=== PATIENT | male | born 1935 | race Caucasian/White ===

== ENCOUNTER → 2019-03-01 08:38 | Outpatient (BNVA) | payer MEDICARE, MEDICAID, SELFPAY | PROVIDERS: Family Provider Nurse Practitioner; PCP Nurse Practitioner; Visit Provider Nurse Practitioner | DX: E11.9 Type 2 diabetes mellitus without complications (principal); I48.91 Unspecified atrial fibrillation | CPT/HCPCS: 83036; 85610 ==

== ENCOUNTER → 2019-04-03 11:40 | Outpatient (BNVA) | payer MEDICARE, MEDICAID, SELFPAY | PROVIDERS: Family Provider Nurse Practitioner; PCP Nurse Practitioner; Visit Provider Nurse Practitioner | DX: I48.91 Unspecified atrial fibrillation (principal) | CPT/HCPCS: 85610 ==

== ENCOUNTER → 2019-04-27 14:11 | Outpatient (BNVA) | payer MEDICARE, MEDICAID, SELFPAY | PROVIDERS: Family Provider Nurse Practitioner; PCP Nurse Practitioner; Visit Provider Nurse Practitioner | DX: D69.9 Hemorrhagic condition, unspecified (principal); G20 Parkinson's disease; I10 Essential (primary) hypertension; K21.0 Gastro-esophageal reflux disease with esophagitis; E61.1 Iron deficiency; E11.65 Type 2 diabetes mellitus with hyperglycemia; E78.2 Mixed hyperlipidemia | CPT/HCPCS: 85610 ==

== ENCOUNTER → 2019-05-01 08:09 | Outpatient (BNVA) | payer MEDICARE, MEDICAID, SELFPAY | PROVIDERS: Family Provider Nurse Practitioner; PCP Nurse Practitioner; Visit Provider Nurse Practitioner | DX: E11.65 Type 2 diabetes mellitus with hyperglycemia (principal); D51.8 Other vitamin B12 deficiency anemias; E78.2 Mixed hyperlipidemia | CPT/HCPCS: 80053; 80061; 82607; 83036 ==

== ENCOUNTER → 2019-05-29 08:34 | Outpatient (BNVA) | payer MEDICARE, MEDICAID, SELFPAY | PROVIDERS: Family Provider Nurse Practitioner; PCP Nurse Practitioner; Visit Provider Nurse Practitioner | DX: D69.9 Hemorrhagic condition, unspecified (principal); I48.91 Unspecified atrial fibrillation | CPT/HCPCS: 85610 ==

== ENCOUNTER → 2019-06-19 09:10 | Outpatient (BNVA) | payer MEDICARE, MEDICAID, SELFPAY | PROVIDERS: Family Provider Nurse Practitioner; PCP Nurse Practitioner; Visit Provider Nurse Practitioner | DX: D69.9 Hemorrhagic condition, unspecified (principal) | CPT/HCPCS: 85610 ==

== ENCOUNTER → 2019-07-17 08:26 | Outpatient (BNVA) | payer MEDICARE, MEDICAID, SELFPAY | PROVIDERS: Family Provider Nurse Practitioner; PCP Nurse Practitioner; Visit Provider Nurse Practitioner | DX: I48.91 Unspecified atrial fibrillation (principal); D69.9 Hemorrhagic condition, unspecified | CPT/HCPCS: 85610 ==

== ENCOUNTER → 2019-08-13 13:20 | Outpatient (BNVA) | payer MEDICARE, MEDICAID, SELFPAY | PROVIDERS: Family Provider Nurse Practitioner; PCP Nurse Practitioner; Visit Provider Nurse Practitioner | DX: D69.9 Hemorrhagic condition, unspecified (principal); I48.91 Unspecified atrial fibrillation; E11.65 Type 2 diabetes mellitus with hyperglycemia; E78.2 Mixed hyperlipidemia; E53.8 Deficiency of other specified B group vitamins | CPT/HCPCS: 80048; 80061; 83036; 85610 ==

== ENCOUNTER → 2019-09-06 13:20 | Outpatient (BNVA) | payer MEDICARE, MEDICAID, SELFPAY | PROVIDERS: Family Provider Nurse Practitioner; PCP Nurse Practitioner; Visit Provider Nurse Practitioner | DX: I48.91 Unspecified atrial fibrillation (principal); D69.9 Hemorrhagic condition, unspecified; D51.8 Other vitamin B12 deficiency anemias | CPT/HCPCS: 85610 ==

== ENCOUNTER → 2019-10-18 13:24 | Outpatient (BNVA) | payer MEDICARE, MEDICAID, SELFPAY | PROVIDERS: Family Provider Nurse Practitioner; PCP Nurse Practitioner; Visit Provider Nurse Practitioner | DX: D69.9 Hemorrhagic condition, unspecified (principal); D51.8 Other vitamin B12 deficiency anemias; I10 Essential (primary) hypertension; G20 Parkinson's disease; K21.0 Gastro-esophageal reflux disease with esophagitis; E61.1 Iron deficiency; E11.65 Type 2 diabetes mellitus with hyperglycemia; E78.2 Mixed hyperlipidemia; I48.91 Unspecified atrial fibrillation | CPT/HCPCS: 85610 ==

== ENCOUNTER → 2019-11-12 11:01 | Outpatient (BNVA) | payer MEDICARE, MEDICAID, SELFPAY | PROVIDERS: Family Provider Nurse Practitioner; PCP Nurse Practitioner; Visit Provider Nurse Practitioner | DX: I48.91 Unspecified atrial fibrillation (principal); E11.65 Type 2 diabetes mellitus with hyperglycemia | CPT/HCPCS: 80053; 80061; 82043; 83036; 85025; 85610 ==

== ENCOUNTER → 2019-12-13 09:38 | Outpatient (BNVA) | payer MEDICARE, MEDICAID, SELFPAY | PROVIDERS: Family Provider Nurse Practitioner; PCP Nurse Practitioner; Visit Provider Nurse Practitioner | DX: I48.0 Paroxysmal atrial fibrillation (principal); D69.9 Hemorrhagic condition, unspecified | CPT/HCPCS: 85610 ==

== ENCOUNTER → 2019-12-18 09:31 | Outpatient (BNVA) | payer MEDICARE, MEDICAID, SELFPAY | PROVIDERS: Family Provider Nurse Practitioner; PCP Nurse Practitioner; Visit Provider Nurse Practitioner | DX: D51.8 Other vitamin B12 deficiency anemias (principal); E61.1 Iron deficiency; I10 Essential (primary) hypertension; E78.2 Mixed hyperlipidemia; I48.0 Paroxysmal atrial fibrillation; R35.0 Frequency of micturition | CPT/HCPCS: 80061; 81003; 85025; 85610 ==

== ENCOUNTER → 2019-12-21 09:37 | Outpatient (BNVA) | payer MEDICARE, MEDICAID, SELFPAY | PROVIDERS: Family Provider Nurse Practitioner; PCP Nurse Practitioner; Visit Provider Nurse Practitioner | DX: R39.11 Hesitancy of micturition (principal); N41.9 Inflammatory disease of prostate, unspecified; D69.9 Hemorrhagic condition, unspecified; I48.0 Paroxysmal atrial fibrillation | CPT/HCPCS: 80053; 81000; 85025; 85610 ==

== ENCOUNTER → 2019-12-31 09:12 | Outpatient (BNVA) | payer MEDICARE, MEDICAID, SELFPAY | PROVIDERS: Family Provider Nurse Practitioner; PCP Nurse Practitioner; Visit Provider Nurse Practitioner | DX: D69.9 Hemorrhagic condition, unspecified (principal) | CPT/HCPCS: 85610 ==

== ENCOUNTER → 2020-01-22 12:38 | Outpatient (BNVA) | payer MEDICARE, MEDICAID, SELFPAY | PROVIDERS: Family Provider Nurse Practitioner; PCP Nurse Practitioner; Visit Provider Nurse Practitioner | DX: I10 Essential (primary) hypertension (principal); E11.65 Type 2 diabetes mellitus with hyperglycemia; I48.0 Paroxysmal atrial fibrillation; E61.1 Iron deficiency; E78.2 Mixed hyperlipidemia | CPT/HCPCS: 80053; 83036; 85025; 85610 ==

== ENCOUNTER → 2020-02-18 10:37 | Outpatient (BNVA) | payer MEDICARE, MEDICAID, SELFPAY | PROVIDERS: Family Provider Nurse Practitioner; PCP Nurse Practitioner; Visit Provider Nurse Practitioner | DX: I48.0 Paroxysmal atrial fibrillation (principal) | CPT/HCPCS: 85610 ==

== ENCOUNTER → 2020-02-25 10:49 | Outpatient (BNVA) | payer MEDICARE, MEDICAID, SELFPAY | PROVIDERS: Family Provider Nurse Practitioner; PCP Nurse Practitioner; Visit Provider Nurse Practitioner | DX: I48.0 Paroxysmal atrial fibrillation (principal) | CPT/HCPCS: 85610 ==

== ENCOUNTER → 2020-03-03 09:58 | Outpatient (BNVA) | payer MEDICARE, MEDICAID, SELFPAY | PROVIDERS: Family Provider Nurse Practitioner; PCP Nurse Practitioner; Visit Provider Nurse Practitioner | DX: I48.0 Paroxysmal atrial fibrillation (principal) | CPT/HCPCS: 85610 ==

== ENCOUNTER → 2020-03-17 13:35 | Outpatient (BNVA) | payer MEDICARE, MEDICAID, SELFPAY | PROVIDERS: Family Provider Nurse Practitioner; PCP Nurse Practitioner; Visit Provider Nurse Practitioner | DX: I48.0 Paroxysmal atrial fibrillation (principal) | CPT/HCPCS: 85610 ==

== ENCOUNTER → 2020-04-09 12:47 | Outpatient (BNVA) | payer MEDICARE, MEDICAID, SELFPAY | PROVIDERS: Family Provider Nurse Practitioner; PCP Nurse Practitioner; Visit Provider Nurse Practitioner | DX: D69.9 Hemorrhagic condition, unspecified (principal); I48.0 Paroxysmal atrial fibrillation | CPT/HCPCS: 85610 ==

== ENCOUNTER → 2020-04-30 11:15 | Outpatient (BNVA) | payer MEDICARE, MEDICAID, SELFPAY | PROVIDERS: Family Provider Nurse Practitioner; PCP Nurse Practitioner; Visit Provider Nurse Practitioner | DX: D69.9 Hemorrhagic condition, unspecified (principal); I48.0 Paroxysmal atrial fibrillation | CPT/HCPCS: 85610 ==

== ENCOUNTER → 2020-05-13 09:54 | Outpatient (BNVA) | payer MEDICARE, MEDICAID, SELFPAY | PROVIDERS: Family Provider Nurse Practitioner; PCP Nurse Practitioner; Visit Provider Nurse Practitioner | DX: D69.9 Hemorrhagic condition, unspecified (principal); E11.65 Type 2 diabetes mellitus with hyperglycemia | CPT/HCPCS: 80053; 83036; 85610 ==

== ENCOUNTER → 2020-05-28 08:55 | Outpatient (BNVA) | payer MEDICARE, MEDICAID, SELFPAY | PROVIDERS: Family Provider Nurse Practitioner; PCP Nurse Practitioner; Visit Provider Nurse Practitioner | DX: I48.0 Paroxysmal atrial fibrillation (principal); L03.90 Cellulitis, unspecified; L72.3 Sebaceous cyst | CPT/HCPCS: 85025; 85610 ==

== ENCOUNTER → 2020-06-09 09:04 | Outpatient (BNVA) | payer MEDICARE, MEDICAID, SELFPAY | PROVIDERS: Family Provider Nurse Practitioner; PCP Nurse Practitioner; Visit Provider Nurse Practitioner | DX: D69.9 Hemorrhagic condition, unspecified (principal); I48.0 Paroxysmal atrial fibrillation | CPT/HCPCS: 85610 ==

== ENCOUNTER → 2020-06-16 11:34 | Outpatient (BNVA) | payer MEDICARE, MEDICAID, SELFPAY | PROVIDERS: Family Provider Nurse Practitioner; PCP Nurse Practitioner; Visit Provider Nurse Practitioner | DX: I48.0 Paroxysmal atrial fibrillation (principal) | CPT/HCPCS: 85610 ==

== ENCOUNTER → 2020-07-09 09:26 | Outpatient (BNVA) | payer MEDICARE, MEDICAID, SELFPAY | PROVIDERS: Family Provider Nurse Practitioner; PCP Nurse Practitioner; Visit Provider Nurse Practitioner | DX: I48.0 Paroxysmal atrial fibrillation (principal) | CPT/HCPCS: 85610 ==

== ENCOUNTER → 2020-08-06 11:16 | Outpatient (BNVA) | payer MEDICARE, MEDICAID, SELFPAY | PROVIDERS: Family Provider Nurse Practitioner; PCP Nurse Practitioner; Visit Provider Nurse Practitioner | DX: I48.0 Paroxysmal atrial fibrillation (principal) | CPT/HCPCS: 85610 ==

== ENCOUNTER → 2020-08-25 11:43 | Outpatient (BNVA) | payer MEDICARE, MEDICAID, SELFPAY | PROVIDERS: Family Provider Nurse Practitioner; PCP Nurse Practitioner; Visit Provider Nurse Practitioner | DX: E11.65 Type 2 diabetes mellitus with hyperglycemia (principal); I48.0 Paroxysmal atrial fibrillation; I10 Essential (primary) hypertension; G20 Parkinson's disease; D51.8 Other vitamin B12 deficiency anemias; K21.9 Gastro-esophageal reflux disease without esophagitis; E61.1 Iron deficiency; E78.2 Mixed hyperlipidemia; R39.11 Hesitancy of micturition; Z79.01 Long term (current) use of anticoagulants | CPT/HCPCS: 80053; 80061; 83036; 85610 ==

== ENCOUNTER → 2020-09-08 09:34 | Outpatient (BNVA) | payer MEDICARE, MEDICAID, SELFPAY | PROVIDERS: Family Provider Nurse Practitioner; PCP Nurse Practitioner; Visit Provider Nurse Practitioner | DX: I48.0 Paroxysmal atrial fibrillation (principal); Z79.01 Long term (current) use of anticoagulants | CPT/HCPCS: 85610 ==

== ENCOUNTER → 2020-09-25 09:38 | Outpatient (BNVA) | payer MEDICARE, MEDICAID, SELFPAY | PROVIDERS: Family Provider Nurse Practitioner; PCP Nurse Practitioner; Visit Provider Nurse Practitioner | DX: I48.0 Paroxysmal atrial fibrillation (principal); Z79.01 Long term (current) use of anticoagulants | CPT/HCPCS: 85610 ==

== ENCOUNTER → 2020-09-29 09:06 | Outpatient (BNVA) | payer MEDICARE, MEDICAID, SELFPAY | PROVIDERS: Family Provider Nurse Practitioner; PCP Nurse Practitioner; Visit Provider Nurse Practitioner | DX: I48.0 Paroxysmal atrial fibrillation (principal) | CPT/HCPCS: 85610 ==

== ENCOUNTER → 2020-10-07 10:09 | Outpatient (BNVA) | payer MEDICARE, MEDICAID, SELFPAY | PROVIDERS: Family Provider Nurse Practitioner; PCP Nurse Practitioner; Visit Provider Nurse Practitioner | DX: I48.0 Paroxysmal atrial fibrillation (principal); Z79.01 Long term (current) use of anticoagulants | CPT/HCPCS: 85610 ==

== ENCOUNTER → 2020-11-10 10:45 | Outpatient (BNVA) | payer MEDICARE, MEDICAID, SELFPAY | PROVIDERS: Family Provider Nurse Practitioner; PCP Nurse Practitioner; Visit Provider Nurse Practitioner | DX: I48.0 Paroxysmal atrial fibrillation (principal); E11.65 Type 2 diabetes mellitus with hyperglycemia; E61.1 Iron deficiency; I10 Essential (primary) hypertension; G20 Parkinson's disease; D51.8 Other vitamin B12 deficiency anemias; K21.9 Gastro-esophageal reflux disease without esophagitis; E78.2 Mixed hyperlipidemia; R39.11 Hesitancy of micturition | CPT/HCPCS: 80053; 80061; 82607; 83036; 83540; 85025; 85610 ==

== ENCOUNTER 2020-11-17 21:55 | Inpatient (IN) | payer MEDICARE, MEDICAID, SELFPAY ==
[2020-11-17 22:46] VITALS: BP 134/77; PULSE 84; RESP 16; TEMP 36.6; O2SAT 99; BMI 30.9
--- NOTE | 2020-11-17 22:58 | PC.NURSE ---
FSBS 164
[2020-11-17 23:08] LABS: Glucose Point of Care 164 mg/dL (70-110)
--- NOTE | 2020-11-17 23:45 | ECG_ITS ---
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 Measurements Intervals [place] Rate: 80 P: DE: QRS: -16 QRSD: 86 T: 29 QT: 351 QTc: 407 Interpretive Statements ATRIAL FIBRILLATION ABNORMAL RHYTHM ECG No previous ECG available for comparison Electronically Signed On 11-18-2020 17:28:53 CDT by Trice Ballard M.D. [id number]
--- NOTE | 2020-11-17 23:57 | CTR_ITS ---
PROCEDURE INFORMATION: Exam: CT Abdomen And Pelvis With Contrast Exam date and time: 11/17/2020 11:57 PM Age: 85 years old Clinical indication: Abdominal pain; Prior surgery; Surgery type: Mitral valve; Patient HX: Generalized abd pain. Ureter and bladder opacification due to infiltration of iv during initial injection. ; Additional info: Per pcp TECHNIQUE: Imaging protocol: Computed tomography of the abdomen and pelvis with contrast. Radiation optimization: All CT scans at this facility use at least one of these dose optimization techniques: automated exposure control; mA and/or kV adjustment per patient size (includes targeted exams where dose is matched to clinical indication); or iterative reconstruction. Contrast material: OMNI 300; Contrast volume: 75 ml; Contrast route: INTRAVENOUS (IV); COMPARISON: No relevant prior studies available. RADIATION DOSE METRICS: Total DLP (mGy-cm): 1579.69 FINDINGS: Heart: Mitral annulus calcifications. Liver: Lobulated liver contour with areas of scarring and fibrosis. Gallbladder and bile ducts: Normal. No calcified stones. No ductal dilation. Pancreas: Pancreas fatty atrophy. Spleen: Normal. No splenomegaly. Adrenal glands: Normal. No mass. Kidneys and ureters: Normal. No hydronephrosis. Stomach and bowel: Moderate colonic diverticulosis. Appendix: No evidence of appendicitis. Intraperitoneal space: Unremarkable. No free air. No significant fluid collection. Vasculature: Moderate coronary artery disease. Lymph nodes: Unremarkable. No enlarged lymph nodes. Urinary bladder: Unremarkable as visualized. Reproductive: Mild prostate gland enlargement. Bones/joints: Unremarkable. No acute fracture. Soft tissues: Unremarkable. CT/CT abdomen pelvis w con* [id number] IMPRESSION: 1. Moderate colonic diverticulosis. 2. Lobulated liver contour with areas of scarring and fibrosis. Radiation Dose CTDIVOL = (mGy): DLP = 1579.69 (mGy-cm)
[2020-11-18] VITALS (11 sets, daily range): BP systolic 109–160; BP diastolic 68–90; PULSE 61–92; RESP 16–18; TEMP 36.4–36.9; O2SAT 94–98
--- NOTE | 2020-11-18 00:03 | CTR_ITS ---
PROCEDURE INFORMATION: Exam: CT Angiography Head With Contrast, Arteriography Exam date and time: 11/18/2020 12:03 AM Age: 85 years old Clinical indication: Dizziness and giddiness and weakness; Patient HX: Onset of severe weakness and dizziness last night. ; Additional info: Rule out stenosis TECHNIQUE: Imaging protocol: Computed tomography angiography of the head with contrast. Exam focused on the arteries. 3D rendering (Not supervised by radiologist): MIP and/or 3D reconstructed images were created by the technologist. Radiation optimization: All CT scans at this facility use at least one of these dose optimization techniques: automated exposure control; mA and/or kV adjustment per patient size (includes targeted exams where dose is matched to clinical indication); or iterative reconstruction. Contrast material: OMNI 350; Contrast volume: 95 ml; Contrast route: INTRAVENOUS (IV); COMPARISON: CT head wo con* [id number] 11/18/2020 12:23 AM RADIATION DOSE METRICS: Total DLP (mGy-cm): 2510.02 FINDINGS: ANTERIOR CIRCULATION: Right internal carotid artery: Unremarkable. Intracranial segment is patent with no significant stenosis. No aneurysm. Right middle cerebral artery: Unremarkable. No occlusion or significant stenosis. No aneurysm. Right anterior cerebral artery: Unremarkable. No occlusion or significant stenosis. No aneurysm. Left internal carotid artery: Unremarkable. Intracranial segment is patent with no significant stenosis. No aneurysm. Left middle cerebral artery: Unremarkable. No occlusion or significant stenosis. No aneurysm. Left anterior cerebral artery: Unremarkable. No occlusion or significant stenosis. No aneurysm. POSTERIOR CIRCULATION: Right vertebral artery: Unremarkable. No occlusion or significant stenosis. No aneurysm. Left vertebral artery: Unremarkable. No occlusion or significant stenosis. No aneurysm. Basilar artery: Unremarkable. No occlusion or significant stenosis. No aneurysm. Right posterior cerebral artery: Unremarkable. No occlusion or significant stenosis. No aneurysm. Left posterior cerebral artery: Unremarkable. No occlusion or significant stenosis. No aneurysm. Brain: There is moderate cerebral atrophy. There is moderate diffuse heterogeneity of the white matter attenuation, consistent with chronic white matter ischemic changes. Cerebral ventricles: No ventriculomegaly. Bones/joints: Unremarkable. No acute fracture. Soft tissues: Unremarkable. IMPRESSION: Unremarkable CT angiogram of the head. No intracranial large arterial vessel occlusion. PROCEDURE INFORMATION: Exam: CT Angiography Neck With Contrast Exam date and time: 11/18/2020 12:03 AM Age: 85 years old Clinical indication: Dizziness and giddiness and weakness; Patient HX: Onset of severe weakness and dizziness last night. ; Additional info: Rule out stenosis TECHNIQUE: Imaging protocol: Computed tomography angiography of the neck with contrast. 3D rendering (Not supervised by radiologist): MIP and/or 3D reconstructed images were created by the technologist. Radiation optimization: All CT scans at this facility use at least one of these dose optimization techniques: automated exposure control; mA and/or kV adjustment per patient size (includes targeted exams where dose is matched to clinical indication); or iterative reconstruction. Contrast material: OMNI 350; Contrast volume: 95 ml; Contrast route: INTRAVENOUS (IV); COMPARISON: CT head wo con* [id number] 11/18/2020 12:23 AM RADIATION DOSE METRICS: Total DLP (mGy-cm): 2510.02 FINDINGS: Right common carotid artery: Small calcified plaque volume in the distal right common carotid artery. Minimal stenosis less than 50%. Right internal carotid artery: Large bulky calcified plaque volume in the proximal right ICA. Mild severity stenosis less than 50%. Right external carotid artery: No occlusion or stenosis of the origin. Left common carotid artery: Scattered small calcified plaques in the left common carotid artery. Minimal stenosis less than 50%. Left internal carotid artery: Bulky calcified plaque in the proximal left ICA. Mild severity stenosis less than 50%. Left external carotid artery: Calcified plaque at the origin of the left external carotid artery. Mild stenosis less than 50%. Right vertebral artery: No stenosis. No dissection or occlusion. Left vertebral artery: No stenosis. No dissection or occlusion. Soft tissues: Normal. No significant soft tissue swelling. Bones/joints: The cervical spine demonstrates moderate degenerative changes at multiple levels. Lungs: Moderate severity emphysema. Heart: Previous CABG. CT/CT angio headneck* [id number] IMPRESSION: Less than 50% stenosis in the carotid arteries. REFERENCES: NASCET CRITERIA. The degree of internal carotid artery stenosis is based on NASCET criteria. Normal is no stenosis. Mild is less than 50% stenosis. Moderate is 50-69% stenosis. Severe is 70% to 99% stenosis. Total occlusion is no detectable patent lumen. Radiation Dose CTDIVOL = (mGy): DLP = 2510.02~2510.02 (mGy-cm)
--- NOTE | 2020-11-18 00:03 | CTR_ITS ---
PROCEDURE INFORMATION: Exam: CT Head Without Contrast Exam date and time: 11/18/2020 12:03 AM Age: 85 years old Clinical indication: Patient HX: Onset of severe weakness and dizziness last night. ; Additional info: Rule out lesions TECHNIQUE: Imaging protocol: Computed tomography of the head without contrast. Radiation optimization: All CT scans at this facility use at least one of these dose optimization techniques: automated exposure control; mA and/or kV adjustment per patient size (includes targeted exams where dose is matched to clinical indication); or iterative reconstruction. COMPARISON: No relevant prior studies available. RADIATION DOSE METRICS: Total DLP (mGy-cm): 881.22 FINDINGS: Brain: There is moderate cerebral atrophy. Negative for intracranial hemorrhage.There is moderate diffuse heterogeneity of the white matter attenuation, consistent with chronic white matter ischemic changes. No intracranial mass. No midline shift of brain. Reyes matter and white matter interfaces are preserved. Cerebral ventricles: No ventriculomegaly. Paranasal sinuses: Visualized sinuses are unremarkable. No fluid levels. Mastoid air cells: Visualized mastoid air cells are well aerated. Vasculature: Intracranial atherosclerosis. Bones/joints: Unremarkable. No acute fracture. Soft tissues: Unremarkable. CT/CT head wo con* [id number] IMPRESSION: Negative for acute intracranial abnormality. Radiation Dose CTDIVOL = (mGy): DLP = 881.22 (mGy-cm)
[2020-11-18 00:26] LABS: Basophils % 0.5 %; Eosinophils # 0.2 10^3/uL (0.0-0.8); Eosinophils % 2.6 %; Hematocrit 33.9 % (42.0-52.0); Hemoglobin 10.6 g/dL (11.7-16.6); Lymphocytes # 2.2 10^3/uL (0.8-4.8); Lymphocytes % 34.7 %; Mean Corpuscular HGB Conc 31.3 g/dL (30.0-36.0); Mean Corpuscular Hemoglobin 28.7 pg (28.0-34.0); Mean Corpuscular Volume 91.9 fl (80-94); Mean Platelet Volume 9.6 fL (7.4-10.4); Monocytes # 0.5 10^3/uL (0.2-0.9); Monocytes % 7.7 %; Neutrophils # 3.41 10^3/uL (1.8-7.7); Neutrophils % 54.3 %; Nucleated Red Blood Cells % 0 %; Platelet Count 285 10^3/cmm (130-400); Red Blood Count 3.69 10^6/uL (4.1-5.3); Red Cell Distribution Width 14.6 % (12.1-15.1); White Blood Count 6.3 10^3/uL (4.0-10.0)
[2020-11-18] MEDS: iohexol 300 mg/mL 100 mL Btl IV (00:26)
--- NOTE | 2020-11-18 00:26 | W.ED.GENADLT ---
HPI - General Adult General: Chief complaint: Weakness Stated complaint: real weak,dizzy Time Seen by Provider: 11/17/20 23:54 History of Present Illness: HPI narrative: HPI: [85]yo patient w/ hx of HTN, DM, mitral valve repair BIBA for concern for of acute episode of light-headedness which started at 7:30pm. Patient called his son and told his son that he was not feeling well. Endorses dyspnea with light-headedness. On arrival, the patient denies any chest pain, SOB, palpitations, focal neurological weakness in the arms or legs. Patient could not recall exactly what happened. No complaints of post-ictal confusion, bowel or bladder incontinence after the incident. Denies any chest pain, palpitation, abdominal pain or back pain prior to the episode of syncope. No recent exertional chest pain or shortness of breath. Denies vertigo or disequilibrium. The episode of syncope was not preceded by any prodromes including nausea, pallor, or diaphoresis. No symptoms of diarrhea, hematuria, dysuria, melena or hematochezia. No prior documented hx of anemia requiring blood transfusions, VTE, or aortic aneurysm. Of note, patient has an outpatient CT abbdominal due to for chronic abd pain Onset: 7:30pm Duration: 3 hrs Location: home Severity: moderate Review of Systems Narrative: Constitutional: No fever, no chills. HEENT: No vision changes CV: No chest pain, no palpitations PULM: No productive cough, +dyspnea. GI: No abdominal pain, no N/V/D. : No Dysuria MSKEL: No muscle pain SKIN: No new rashes, no lesions. NEURO: No headache, no focal weakness. 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 Atrial fibrillation Controlled type 2 diabetes mellitus with hyperglycemia, without long-term current use of insulin Dietary vitamin B12 deficiency anemia Essential (primary) hypertension Gastric reflux Iron deficiency Memory changes Mixed hyperlipidemia Parkinson's disease Urinary hesitancy Warfarin anticoagulation Surgical History (Updated 11/20/20 @ 00:01 by ) H/O mitral valve repair S/P mitral valve repair Family History Mother Dementia Daughter Diabetes Denies family history of CAD (coronary artery disease) Clotting disorder Chronic kidney disease (CKD) Suicide Anesthesia complication Bleeding disorder Lung disease Cancer Stroke Social History Second hand smoke exposure: No Smoking risk assessment/counseling performed?: No Alcohol intake: never Desire information about alcohol rehabilitation?: No Counseling given: No Desire information about substance/drug rehabilitation?: No Counseling given: No Adopted: No Caregiver/support person: No Lives independently: Yes Household members: none Housing: House Marital status: / Current occupational status: retired History of recent travel: No Current gender identity: Male Physical Exam Narrative: EXAM NARRATIVE: Head: Atraumatic Eyes: PERRL, conjunctiva without injection, eyes tracking ENT: Mucous membrane moist NECK: Supple without lymphadenopathy, no nuchal rigidity LUNGS: LCTAB CV: RRR ABDOMEN: Soft, nontender in all quadrants, no guarding or rebound tenderness, no CVA or flank tenderness bilaterally EXTREMITY: Normal ROM SKIN: No rash or erythema NEURO: Mental status: A/Ox3 CN II-XII tested and intact. Sensation intact to sharp/dull differentiation in all extremities. Motor: Normal tone and bulk. No abnormal movements appreciated. No pronator drift. Strength tested and 5/5 in bilateral wrist flexion/extension, elbow flexion/extension, shoulder abduction, straight leg raise, knee flexion/extension, ankle dorsiflexion/plantarflexion. Patient ambulates with a steady gait. Coordination: Finger to nose and heel to alvarez testing intact bilaterally. PSYCH: Cooperative mood and affect Course Vital Signs: Vital signs: Vital Signs Temperature 97.6 F 11/19/20 14:19 Pulse Rate 82 11/19/20 14:19 Respiratory Rate 16 11/19/20 14:19 Blood Pressure 126/67 11/19/20 14:19 Pulse Oximetry 97 11/19/20 14:19 MDM - General Adult MDM Narrative: Medical decision making narrative: [85]yo patient w/ hx of mitral valve repair, HTN, DM presenting to the ED with persistent light-headedness -chest pain, +SOB, -palpitations. Currently symptom free. HDS. Neurologically intact. Given history, exam and workup, presentation not consistent with seizures given short time course, no postictal state, no seizure activity. Low suspicion for acute neurologic catastrophes to include ICH given lack of trauma, risk factors for bleeding diathesis. Low suspicion for vascular catastrophes to include PE, thoracic aortic dissection, AAA rupture. Workup: CBC, BMP, Troponin, BNP, ECG, CXR for aspiration, CT brain/CTA head, CT abd+pelvis Intervention: IVF, PO challenge, and serial reassessment EKG: No e/o STEMI. No evidence of Brugada?s sign, delta wave, epsilon wave, significantly prolonged QTc, or malignant arrhythmia. [1:30am] On reassessment, patient continues to HDS. No acute complaints currently. No syncopal episode in the ER. No arrhythmia noted on the vehicle monitor technician. Patient has been able to ambulate in the ED without issues. No suspicion of neurogenic syncope at this time. However, given age, cardiovascular risk factors and multiple co-rmbities, the patient will need inpatient workup for cardiac syncope. Patient agrees with the plan for inpatient admission at this time. UA is positive for UTI, will treat with ceftriaxone. Disposition: Admit to medicine, telemetry bed for cardiac monitoring and cardiology review. Lab Data: Labs: Lab Results 11/17/20 11/18/20 11/18/20 22:57 00:15 00:15 WBC 6.3 10^3/uL 10^3/ uL (4.0-10.0) RBC 3.69 10^6/uL L 10 ^6/uL (4.1-5.3) Hgb 10.6 g/dL L g/dL (11.7-16.6) Hct 33.9 % L % (42.0-52.0) MCV 91.9 fl fl (80-94) MCH 28.7 pg pg (28.0-34.0) MCHC 31.3 g/dL g/dL (30.0-36.0) RDW 14.6 % % (12.1-15.1) Plt Count 285 10^3/cmm 10^3 /cmm (130-400) MPV 9.6 fL fL (7.4-10.4) Neut % (Auto) 54.3 % % Lymph % (Auto) 34.7 % % [place] % (Auto) 7.7 % % Eos % (Auto) 2.6 % % Baso % (Auto) 0.5 % % Neut # (Auto) 3.41 10^3/uL 10^3 /uL (1.8-7.7) Lymph # (Auto) 2.2 10^3/uL 10^3/ uL (0.8-4.8) [place] # (Auto) 0.5 10^3/uL 10^3/ uL (0.2-0.9) Eos # (Auto) 0.2 10^3/uL 10^3/ uL (0.0-0.8) Baso # (Auto) 0.0 10^3/uL 10^3/ uL (0.0-0.1) Nucleated RBC % (a uto) 0 % % Nucleated RBCs # 0.0 /100WBC /100W BC PT 24.80 SECONDS H S ECONDS (12.1-14.9) INR 2.19 H (0.8-1.2) APTT 29.3 SECONDS SECO NDS (23.9-36.7) Sodium Potassium Chloride Carbon Dioxide Anion Gap BUN Creatinine GFR Calculation Glucose POC Glucose 164 mg/dL H mg/dL (70-110) Estimat Average Gl ucose Hemoglobin A1c Calculated Osmolal ity Calcium Iron TIBC % Saturation Unsat Iron Binding Total Bilirubin AST ALT Alkaline Phosphata se Troponin T Baselin e Troponin T 120 Min [place] Delta Troponin T Troponin T Hi Sens 6Hr Troponin T Hi Sens 6Hr Delta NT-Pro-B Natriuret Pep Total Protein Albumin Globulin Triglycerides Cholesterol LDL Cholesterol, C alc Total VLDL Cholest petey HDL Cholesterol Cholesterol/HDL Ra catia Lipase Prostate Specific Ag Vitamin B12 Folate Procalcitonin TSH Free T4 Free T3 Urine Color Urine Appearance Urine pH Ur Specific Gravit y Urine Protein Urine Glucose (UA) Urine Ketones Urine Blood Urine Nitrate Urine Bilirubin Urine Urobilinogen Ur Leukocyte Ynes ase Urine RBC Urine WBC Ur Squamous Epith Cells Amorphous Sediment Urine Bacteria 11/18/20 11/18/20 11/18/20 00:15 00:15 00:15 WBC RBC Hgb Hct MCV MCH MCHC RDW Plt Count MPV Neut % (Auto) Lymph % (Auto) [place] % (Auto) Eos % (Auto) Baso % (Auto) Neut # (Auto) Lymph # (Auto) [place] # (Auto) Eos # (Auto) Baso # (Auto) Nucleated RBC % (a uto) Nucleated RBCs # PT INR APTT Sodium 139 mmol/L mmol/L (136-145) Potassium 4.1 mmol/L mmol/L (3.5-5.1) Chloride 102 mmol/L mmol/L (98-107) Carbon Dioxide 25 mmol/L mmol/L (22-29) Anion Gap 16.1 (5-19) BUN 25 mg/dL H mg/dL (8-23) Creatinine 0.9 mg/dL mg/dL (0.7-1.2) GFR Calculation Not Reportable Glucose 138 mg/dL H mg/dL (65-115) POC Glucose Estimat Average Gl ucose Hemoglobin A1c Calculated Osmolal ity 295 mOsm/kg mOsm/ kg (285-295) Calcium 9.3 mg/dL mg/dL (8.5-10.5) Iron TIBC % Saturation Unsat Iron Binding Total Bilirubin 0.3 mg/dL mg/dL (0.15-1.2) AST 13 U/L U/L (0-40) ALT < 5 U/L U/L (0-41) Alkaline Phosphata se 91 IU/L IU/L (40-130) Troponin T Baselin e 31 ng/L H ng/L (0-15) Troponin T 120 Min [place] Delta Troponin T Troponin T Hi Sens 6Hr Troponin T Hi Sens 6Hr Delta NT-Pro-B Natriuret Pep 1488 pg/mL H pg/m L (0-450) Total Protein 7.5 g/dL g/dL (6.6-8.7) Albumin 4.0 g/dL g/dL (3.5-5.2) Globulin 3.5 g/dL g/dL (1.3-4.6) Triglycerides Cholesterol LDL Cholesterol, C alc Total VLDL Cholest petey HDL Cholesterol Cholesterol/HDL Ra catia Lipase 17 U/L U/L (13-60) Prostate Specific Ag Vitamin B12 Folate Procalcitonin TSH Free T4 Free T3 Urine Color Urine Appearance Urine pH Ur Specific Gravit y Urine Protein Urine Glucose (UA) Urine Ketones Urine Blood Urine Nitrate Urine Bilirubin Urine Urobilinogen Ur Leukocyte Ynes ase Urine RBC Urine WBC Ur Squamous Epith Cells Amorphous Sediment Urine Bacteria 11/18/20 11/18/20 11/18/20 01:45 02:40 06:26 WBC RBC Hgb Hct MCV MCH MCHC RDW Plt Count MPV Neut % (Auto) Lymph % (Auto) [place] % (Auto) Eos % (Auto) Baso % (Auto) Neut # (Auto) Lymph # (Auto) [place] # (Auto) Eos # (Auto) Baso # (Auto) Nucleated RBC % (a uto) Nucleated RBCs # PT INR APTT Sodium Potassium Chloride Carbon Dioxide Anion Gap BUN Creatinine GFR Calculation Glucose POC Glucose Estimat Average Gl ucose Hemoglobin A1c Calculated Osmolal ity Calcium Iron TIBC % Saturation Unsat Iron Binding Total Bilirubin AST ALT Alkaline Phosphata se Troponin T Baselin e Troponin T 120 Min [place] 29.30 ng/L H ng/L (0-15) Delta Troponin T -1.70 ABS# L ABS# (0-10) Troponin T Hi Sens 6Hr 28.72 ng/L H ng/L (0-15) Troponin T Hi Sens 6Hr Delta -2.28 ng/L L ng/L (0-12) NT-Pro-B Natriuret Pep Total Protein Albumin Globulin Triglycerides Cholesterol LDL Cholesterol, C alc Total VLDL Cholest petey HDL Cholesterol Cholesterol/HDL Ra catia Lipase Prostate Specific Ag Vitamin B12 Folate Procalcitonin TSH Free T4 Free T3 Urine Color Straw (Yellow) Urine Appearance Sl hazy (CLEAR) Urine pH 5 (5-7) Ur Specific Gravit y 1.000 L (1.005-1.030) Urine Protein Neg (Negative) Urine Glucose (UA) Norm (Normal) Urine Ketones Negative (Negative) Urine Blood Neg (Negative) Urine Nitrate Positive H (Negative) Urine Bilirubin Neg (Negative) Urine Urobilinogen Norm mg/dL mg/dL (Negative) Ur Leukocyte Ynes ase 2+ H (Negative) Urine RBC Rare /hpf /hpf (0-2) Urine WBC 55-80 /hpf H /hpf (0-5) Ur Squamous Epith Cells 0-4 /hpf H /hpf (0-5) Amorphous Sediment Not Reportable Urine Bacteria Trace /hpf /hpf (NONE) 11/18/20 11/18/20 11/18/20 06:26 06:26 06:26 WBC 5.1 10^3/uL 10^3/ uL (4.0-10.0) RBC 3.31 10^6/uL L 10 ^6/uL (4.1-5.3) Hgb 9.5 g/dL L g/dL (11.7-16.6) Hct 30.0 % L % (42.0-52.0) MCV 90.6 fl fl (80-94) MCH 28.7 pg pg (28.0-34.0) MCHC 31.7 g/dL g/dL (30.0-36.0) RDW 14.5 % % (12.1-15.1) Plt Count 268 10^3/cmm 10^3 /cmm (130-400) MPV 9.6 fL fL (7.4-10.4) Neut % (Auto) 56.9 % % Lymph % (Auto) 31.3 % % [place] % (Auto) 8.8 % % Eos % (Auto) 2.2 % % Baso % (Auto) 0.6 % % Neut # (Auto) 2.91 10^3/uL 10^3 /uL (1.8-7.7) Lymph # (Auto) 1.6 10^3/uL 10^3/ uL (0.8-4.8) [place] # (Auto) 0.5 10^3/uL 10^3/ uL (0.2-0.9) Eos # (Auto) 0.1 10^3/uL 10^3/ uL (0.0-0.8) Baso # (Auto) 0.0 10^3/uL 10^3/ uL (0.0-0.1) Nucleated RBC % (a uto) 0 % % Nucleated RBCs # 0.0 /100WBC /100W BC PT INR APTT Sodium 136 mmol/L mmol/L (136-145) Potassium 4.2 mmol/L mmol/L (3.5-5.1) Chloride 103 mmol/L mmol/L (98-107) Carbon Dioxide 24 mmol/L mmol/L (22-29) Anion Gap 13.2 (5-19) BUN 23 mg/dL mg/dL (8-23) Creatinine 0.9 mg/dL mg/dL (0.7-1.2) GFR Calculation Not Reportable Glucose 126 mg/dL H mg/dL (65-115) POC Glucose Estimat Average Gl ucose Hemoglobin A1c Calculated Osmolal ity 287 mOsm/kg mOsm/ kg (285-295) Calcium 8.8 mg/dL mg/dL (8.5-10.5) Iron 37 ug/dL L ug/dL (59-158) TIBC 292 mcg/dl mcg/dl % Saturation 12.6 % L % (20-50) Unsat Iron Binding 255 ug/dL ug/dL (112-347) Total Bilirubin 0.3 mg/dL mg/dL (0.15-1.2) AST 11 U/L U/L (0-40) ALT < 5 U/L U/L (0-41) Alkaline Phosphata se 84 IU/L IU/L (40-130) Troponin T Baselin e Troponin T 120 Min [place] Delta Troponin T Troponin T Hi Sens 6Hr Troponin T Hi Sens 6Hr Delta NT-Pro-B Natriuret Pep 2116 pg/mL H pg/m L (0-450) Total Protein 6.3 g/dL L g/dL (6.6-8.7) Albumin 3.5 g/dL g/dL (3.5-5.2) Globulin 2.8 g/dL g/dL (1.3-4.6) Triglycerides Cholesterol LDL Cholesterol, C alc Total VLDL Cholest petey HDL Cholesterol Cholesterol/HDL Ra catia Lipase Prostate Specific Ag Vitamin B12 Folate Procalcitonin 0.07 ng/mL ng/mL (0-0.5) TSH Free T4 Free T3 Urine Color Urine Appearance Urine pH Ur Specific Gravit y Urine Protein Urine Glucose (UA) Urine Ketones Urine Blood Urine Nitrate Urine Bilirubin Urine Urobilinogen Ur Leukocyte Ynes ase Urine RBC Urine WBC Ur Squamous Epith Cells Amorphous Sediment Urine Bacteria 11/18/20 11/18/20 11/18/20 06:26 06:26 06:26 WBC RBC Hgb Hct MCV MCH MCHC RDW Plt Count MPV Neut % (Auto) Lymph % (Auto) [place] % (Auto) Eos % (Auto) Baso % (Auto) Neut # (Auto) Lymph # (Auto) [place] # (Auto) Eos # (Auto) Baso # (Auto) Nucleated RBC % (a uto) Nucleated RBCs # PT INR APTT Sodium Potassium Chloride Carbon Dioxide Anion Gap BUN Creatinine GFR Calculation Glucose POC Glucose Estimat Average Gl ucose 151 Hemoglobin A1c 6.9 % H % (4.0-6.0) Calculated Osmolal ity Calcium Iron TIBC % Saturation Unsat Iron Binding Total Bilirubin AST ALT Alkaline Phosphata se Troponin T Baselin e Troponin T 120 Min [place] Delta Troponin T Troponin T Hi Sens 6Hr Troponin T Hi Sens 6Hr Delta NT-Pro-B Natriuret Pep Total Protein Albumin Globulin Triglycerides 57 mg/dL mg/dL (0-150) Cholesterol 169 mg/dL mg/dL (0-200) LDL Cholesterol, C alc 89 mg/dL mg/dL (50-129) Total VLDL Cholest petey 11 mg/dL mg/dL (0-30) HDL Cholesterol 69 mg/dL mg/dL (60-100) Cholesterol/HDL Ra catia 2.45 mg/dL mg/dL (1.0-5.00) Lipase Prostate Specific Ag Vitamin B12 365 pg/mL pg/mL (232-1245) Folate 8.3 ng/mL ng/mL (4.5-32.2) Procalcitonin TSH 6.17 uIU/mL H uIU /mL (0.27-4.20) Free T4 Free T3 Urine Color Urine Appearance Urine pH Ur Specific Gravit y Urine Protein Urine Glucose (UA) Urine Ketones Urine Blood Urine Nitrate Urine Bilirubin Urine Urobilinogen Ur Leukocyte Ynes ase Urine RBC Urine WBC Ur Squamous Epith Cells Amorphous Sediment Urine Bacteria 11/18/20 11/18/20 11/18/20 06:26 06:26 11:04 WBC RBC Hgb Hct MCV MCH MCHC RDW Plt Count MPV Neut % (Auto) Lymph % (Auto) [place] % (Auto) Eos % (Auto) Baso % (Auto) Neut # (Auto) Lymph # (Auto) [place] # (Auto) Eos # (Auto) Baso # (Auto) Nucleated RBC % (a uto) Nucleated RBCs # PT INR APTT Sodium Potassium Chloride Carbon Dioxide Anion Gap BUN Creatinine GFR Calculation Glucose POC Glucose 165 mg/dL H mg/dL (70-110) Estimat Average Gl ucose Hemoglobin A1c Calculated Osmolal ity Calcium Iron TIBC % Saturation Unsat Iron Binding Total Bilirubin AST ALT Alkaline Phosphata se Troponin T Baselin e Troponin T 120 Min [place] Delta Troponin T Troponin T Hi Sens 6Hr Troponin T Hi Sens 6Hr Delta NT-Pro-B Natriuret Pep Total Protein Albumin Globulin Triglycerides Cholesterol LDL Cholesterol, C alc Total VLDL Cholest petey HDL Cholesterol Cholesterol/HDL Ra catia Lipase Prostate Specific Ag 2.040 ng/mL ng/mL (0-4) Vitamin B12 Folate Procalcitonin TSH Free T4 0.94 ng/dL ng/dL (0.82-1.77) Free T3 2.3 PG/ML PG/ML (2.0-4.4) Urine Color Urine Appearance Urine pH Ur Specific Gravit y Urine Protein Urine Glucose (UA) Urine Ketones Urine Blood Urine Nitrate Urine Bilirubin Urine Urobilinogen Ur Leukocyte Ynes ase Urine RBC Urine WBC Ur Squamous Epith Cells Amorphous Sediment Urine Bacteria Imaging Data^: Other Imaging: Radiologist's impression: [employer] [id number] Scan ReportSigned Patient: Edgardo Price AUnit #: [id number]: [id number]#:[id number]/Sex: 85 / MADM Date: 11/17/20Loc: ERRoom/Bed:Attending Dr: Ordering Provider/Ordering MD: Emelina Damon MD Date of Service: 11/18/20 Procedure(s): CT angio headneck* [id number] Accession Number(s): [id number] Report Number: [id number] PROCEDURE INFORMATION: Exam: CT Angiography Head With Contrast, Arteriography Exam date and time: 11/18/2020 12:03 AM Age: 85 years old Clinical indication: Dizziness and giddiness and weakness; Patient HX: Onset of severe weakness and dizziness last night. ; Additional info: Rule out stenosis TECHNIQUE: Imaging protocol: Computed tomography angiography of the head with contrast. Exam focused on the arteries. 3D rendering (Not supervised by radiologist): MIP and/or 3D reconstructed images were created by the technologist. Radiation optimization: All CT scans at this facility use at least one of these dose optimization techniques: automated exposure control; mA and/or kV adjustment per patient size (includes targeted exams where dose is matched to clinical indication); or iterative reconstruction. Contrast material: OMNI 350; Contrast volume: 95 ml; Contrast route: INTRAVENOUS (IV); COMPARISON: CT head wo con* [id number] 11/18/2020 12:23 AM RADIATION DOSE METRICS: Total DLP (mGy-cm): 2510.02 FINDINGS: ANTERIOR CIRCULATION: Right internal carotid artery: Unremarkable. Intracranial segment is patent with no significant stenosis. No aneurysm. Right middle cerebral artery: Unremarkable. No occlusion or significant stenosis. No aneurysm. Right anterior cerebral artery: Unremarkable. No occlusion or significant stenosis. No aneurysm. Left internal carotid artery: Unremarkable. Intracranial segment is patent with no significant stenosis. No aneurysm. Left middle cerebral artery: Unremarkable. No occlusion or significant stenosis. No aneurysm. Left anterior cerebral artery: Unremarkable. No occlusion or significant stenosis. No aneurysm. POSTERIOR CIRCULATION: Right vertebral artery: Unremarkable. No occlusion or significant stenosis. No aneurysm. Left vertebral artery: Unremarkable. No occlusion or significant stenosis. No aneurysm. Basilar artery: Unremarkable. No occlusion or significant stenosis. No aneurysm. Right posterior cerebral artery: Unremarkable. No occlusion or significant stenosis. No aneurysm. Left posterior cerebral artery: Unremarkable. No occlusion or significant stenosis. No aneurysm. Brain: There is moderate cerebral atrophy. There is moderate diffuse heterogeneity of the white matter attenuation, consistent with chronic white matter ischemic changes. Cerebral ventricles: No ventriculomegaly. Bones/joints: Unremarkable. No acute fracture. Soft tissues: Unremarkable. IMPRESSION: Unremarkable CT angiogram of the head. No intracranial large arterial vessel occlusion. PROCEDURE INFORMATION: Exam: CT Angiography Neck With Contrast Exam date and time: 11/18/2020 12:03 AM Age: 85 years old Clinical indication: Dizziness and giddiness and weakness; Patient HX: Onset of severe weakness and dizziness last night. ; Additional info: Rule out stenosis TECHNIQUE: Imaging protocol: Computed tomography angiography of the neck with contrast. 3D rendering (Not supervised by radiologist): MIP and/or 3D reconstructed images were created by the technologist. Radiation optimization: All CT scans at this facility use at least one of these dose optimization techniques: automated exposure control; mA and/or kV adjustment per patient size (includes targeted exams where dose is matched to clinical indication); or iterative reconstruction. Contrast material: OMNI 350; Contrast volume: 95 ml; Contrast route: INTRAVENOUS (IV); COMPARISON: CT head wo con* [id number] 11/18/2020 12:23 AM RADIATION DOSE METRICS: Total DLP (mGy-cm): 2510.02 FINDINGS: Right common carotid artery: Small calcified plaque volume in the distal right common carotid artery. Minimal stenosis less than 50%. Right internal carotid artery: Large bulky calcified plaque volume in the proximal right ICA. Mild severity stenosis less than 50%. Right external carotid artery: No occlusion or stenosis of the origin. Left common carotid artery: Scattered small calcified plaques in the left common carotid artery. Minimal stenosis less than 50%. Left internal carotid artery: Bulky calcified plaque in the proximal left ICA. Mild severity stenosis less than 50%. Left external carotid artery: Calcified plaque at the origin of the left external carotid artery. Mild stenosis less than 50%. Right vertebral artery: No stenosis. No dissection or occlusion. Left vertebral artery: No stenosis. No dissection or occlusion. Soft tissues: Normal. No significant soft tissue swelling. Bones/joints: The cervical spine demonstrates moderate degenerative changes at multiple levels. Lungs: Moderate severity emphysema. Heart: Previous CABG. CT/CT angio headneck* [id number] IMPRESSION: Less than 50% stenosis in the carotid arteries. REFERENCES: NASCET CRITERIA. The degree of internal carotid artery stenosis is based on NASCET criteria. Normal is no stenosis. Mild is less than 50% stenosis. Moderate is 50-69% stenosis. Severe is 70% to 99% stenosis. Total occlusion is no detectable patent lumen. Radiation Dose CTDIVOL = (mGy): DLP = 2510.02~2510.02 (mGy-cm) Dictated By:Feliciano Brown By:Feliciano Brown Date/Time:11/18/20 0208DD/ 0003 [facility] [place] [id number] Scan ReportSigned Patient: Edgardo Price AUnit #: [id number]: 1936cct#:[id number]/Sex: 85 / MADM Date: 11/17/20Loc: ERRoom/Bed:Attending Dr: Ordering Provider/Ordering MD: Emelina Damon MD Date of Service: 11/18/20 Procedure(s): CT head wo con* [id number] Accession Number(s): [id number] Report Number: [id number] PROCEDURE INFORMATION: Exam: CT Head Without Contrast Exam date and time: 11/18/2020 12:03 AM Age: 85 years old Clinical indication: Patient HX: Onset of severe weakness and dizziness last night. ; Additional info: Rule out lesions TECHNIQUE: Imaging protocol: Computed tomography of the head without contrast. Radiation optimization: All CT scans at this facility use at least one of these dose optimization techniques: automated exposure control; mA and/or kV adjustment per patient size (includes targeted exams where dose is matched to clinical indication); or iterative reconstruction. COMPARISON: No relevant prior studies available. RADIATION DOSE METRICS: Total DLP (mGy-cm): 881.22 FINDINGS: Brain: There is moderate cerebral atrophy. Negative for intracranial hemorrhage.There is moderate diffuse heterogeneity of the white matter attenuation, consistent with chronic white matter ischemic changes. No intracranial mass. No midline shift of brain. Reyes matter and white matter interfaces are preserved. Cerebral ventricles: No ventriculomegaly. Paranasal sinuses: Visualized sinuses are unremarkable. No fluid levels. Mastoid air cells: Visualized mastoid air cells are well aerated. Vasculature: Intracranial atherosclerosis. Bones/joints: Unremarkable. No acute fracture. Soft tissues: Unremarkable. CT/CT head wo con* [id number] IMPRESSION: Negative for acute intracranial abnormality. Radiation Dose CTDIVOL = (mGy): DLP = 881.22 (mGy-cm) Dictated By:Feliciano Brown By:Feliciano Brown Date/Time:11/18/20 0205DD/ 0003 [address] [place], [place] [address]DE Scan ReportSigned Patient: Edgardo Price AUnit #: [id number]: 7Acct#:[id number]/Sex: 85 / MADM Date: 11/18/20Loc: [facility]/Bed: 256-1Attending Dr: Barbara Avila MD Ordering Provider/Ordering MD: Emelina Damon MD Date of Service: 11/17/20 Procedure(s): CT abdomen pelvis w con* [id number] Accession Number(s): [id number] Report Number: [id number] PROCEDURE INFORMATION: Exam: CT Abdomen And Pelvis With Contrast Exam date and time: 11/17/2020 11:57 PM Age: 85 years old Clinical indication: Abdominal pain; Prior surgery; Surgery type: Mitral valve; Patient HX: Generalized abd pain. Ureter and bladder opacification due to infiltration of iv during initial injection. ; Additional info: Per pcp TECHNIQUE: Imaging protocol: Computed tomography of the abdomen and pelvis with contrast. Radiation optimization: All CT scans at this facility use at least one of these dose optimization techniques: automated exposure control; mA and/or kV adjustment per patient size (includes targeted exams where dose is matched to clinical indication); or iterative reconstruction. Contrast material: OMNI 300; Contrast volume: 75 ml; Contrast route: INTRAVENOUS (IV); COMPARISON: No relevant prior studies available. RADIATION DOSE METRICS: Total DLP (mGy-cm): 1579.69 FINDINGS: Heart: Mitral annulus calcifications. Liver: Lobulated liver contour with areas of scarring and fibrosis. Gallbladder and bile ducts: Normal. No calcified stones. No ductal dilation. Pancreas: Pancreas fatty atrophy. Spleen: Normal. No splenomegaly. Adrenal glands: Normal. No mass. Kidneys and ureters: Normal. No hydronephrosis. Stomach and bowel: Moderate colonic diverticulosis. Appendix: No evidence of appendicitis. Intraperitoneal space: Unremarkable. No free air. No significant fluid collection. Vasculature: Moderate coronary artery disease. Lymph nodes: Unremarkable. No enlarged lymph nodes. Urinary bladder: Unremarkable as visualized. Reproductive: Mild prostate gland enlargement. Bones/joints: Unremarkable. No acute fracture. Soft tissues: Unremarkable. CT/CT abdomen pelvis w con* [id number] IMPRESSION: 1. Moderate colonic diverticulosis. 2. Lobulated liver contour with areas of scarring and fibrosis. 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
[2020-11-18 00:37] LABS: INR 2.19 (0.8-1.2)
[2020-11-18 00:38] LABS: Partial Thromboplastin Time 29.3 SECONDS (23.9-36.7)
[2020-11-18 00:50] LABS: Troponin(5th) Baseline 31 ng/L (0-15)
[2020-11-18 00:53] LABS: Alanine Aminotransferase < 5 U/L (0-41); Alkaline Phosphatase 91 IU/L (40-130); Anion Gap 16.1 (5-19); Aspartate Amino Transferase 13 U/L (0-40); Blood Urea Nitrogen 25 mg/dL (8-23); Calcium 9.3 mg/dL (8.5-10.5); Carbon Dioxide 25 mmol/L (22-29); Chloride 102 mmol/L (98-107); Globulin 3.5 g/dL (1.3-4.6); Glucose 138 mg/dL (65-115); Lipase 17 U/L (13-60); Osmolality Calculated 295 mOsm/kg (285-295); Potassium 4.1 mmol/L (3.5-5.1); Sodium 139 mmol/L (136-145); Total Bilirubin 0.3 mg/dL (0.15-1.2); Total Protein 7.5 g/dL (6.6-8.7)
[2020-11-18 01:28] LABS: NT Pro B Type Natriuretic Pept 1488 pg/mL (0-450)
[2020-11-18 02:12] LABS: Add Urine Microscopic? YES; Bilirubin Urine Neg (Negative); Blood Urine Neg (Negative); Glucose Urine UA Norm (Normal); Ketones Urine Negative (Negative); Leukocyte Esterase Urine 2+ (Negative); Nitrate Urine Positive (Negative); Protein Urine Neg (Negative); Urine Appearance SL Hazy (CLEAR); Urine Color Straw (Yellow); Urobilinogen Urine Norm (Negative); pH Urine 5 (5-7)
[2020-11-18 02:18] LABS: Add Urine Culture? Yes; Bacteria Urine TRACE /hpf; RBC Urine RARE /hpf (0-2); Squamous Epithelial Cell Urine 0-4 /hpf (0-5); WBC Urine 55-80 /hpf (0-5)
[2020-11-18] MEDS: cefTRIAXone 1,000 MG in sodium chloride 0.9% (plus) 50 ML 100 MG IV (02:31)
--- NOTE | 2020-11-18 05:45 | ECG_ITS ---
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 Measurements Intervals [place] Rate: 81 P: MS: QRS: -23 QRSD: 102 T: 54 QT: 372 QTc: 433 Interpretive Statements ATRIAL FLUTTER/TACHYCARDIA LOW QRS VOLTAGE IN PRECORDIAL LEADS [QRS DEFLECTION < 1.0 mV IN CHEST LEADS] SEPTAL MYOCARDIAL INFARCTION , PROBABLY OLD [40+ ms Q WAVE IN V1/V2] No previous ECG available for comparison Electronically Signed On 11-18-2020 17:31:51 CDT by Trice Ballard M.D. [id number]
--- NOTE | 2020-11-18 06:14 | USCV_ITS ---
Edgardo Price Age: 85 Gender: M : 1935 Exam Date: 11/18/2020 10:13 Ordering Phys: Barbara Avila MD Technologist: Exam Location: [facility] – [place] Indication: RECURRENT SYNCOPE BP: 136 / 87 HR: 71 Rhythm: Sinus Technical Quality: Adequate MEASUREMENTS (Male / Female) Normal Values 2D ECHO LV Diastolic Diameter PLAX 2.7 cm 4.2 - 5.9 / 3.9 - 5.3 cm LV Systolic Diameter PLAX 2.1 cm IVS Diastolic Thickness 1.0 cm 0.6 - 1.0 / 0.6 - 0.9 cm IVS Systolic Thickness 1.2 cm LVPW Diastolic Thickness 0.9 cm 0.6 - 1.0 / 0.6 - 0.9 cm LVPW Systolic Thickness 1.1 cm LVOT Diameter 2.0 cm LV Ejection Fraction 2D Teich 32.7 % LV Ejection Fraction MOD 2C 71.3 % LV Ejection Fraction 2C AL 71.5 % LA Diameter 4.4 cm LA Width 4.7 cm LA Height 5.8 cm RA Width 4.4 cm RA Height 5.1 cm Aorta at Sinotubular Diameter 2.8 cm M-MODE Aortic Annulus Diameter 3.2 cm LA Ao Ratio MM 1.5 MV E Point Septal Separation 1.2 cm DOPPLER AV Peak Velocity 118.0 cm/s LVOT Peak Velocity 84.0 cm/s AV Area Cont Eq vti 2.3 cm squared AV Area Cont Eq pk 2.2 cm squared MV Area PHT 5.4 cm squared Mitral E to A Ratio 2.6 MV E' Velocity 83.5 cm/s Mitral E to MV E' Ratio 22.0 Mitral E to LV E' Lateral Ratio 20.9 Mitral E to LV E' Septal Ratio 23.3 TR Peak Velocity 245.3 cm/s TR Peak Gradient 24.1 mmHg TV Peak E Velocity 97.0 cm/s FINDINGS Left Ventricle Normal left ventricular size and systolic function, EF 67 %. Moderate left ventricular hypertrophy. No regional wall motion abnormalities. Grade III/IV diastolic dysfunction (restrictive filling pattern), severely elevated filling pressures. Right Ventricle The right ventricle is normal in size and function. Right Atrium Mildly increased right atrial size. Left Atrium Mildly increased left atrial size. Mitral Valve Thickened mitral valve. Mild mitral valve regurgitation. Aortic Valve Thickened aortic valve. Tricuspid Valve No gross abnormalities noted Pulmonic Valve Trace pulmonary valve regurgitation. Pericardium No pericardial effusion. Aorta Normal aortic annulus size. CONCLUSIONS Normal left ventricular size and systolic function, EF 67 %. Moderate left ventricular hypertrophy. No regional wall motion abnormalities. Grade III/IV diastolic dysfunction (restrictive filling pattern), severely elevated filling pressures. Mild biatrial enlargement Thickened mitral valve. Mild mitral valve regurgitation. Thickened aortic valve. Trace pulmonary valve regurgitation. There is no pericardial effusion. There are no intracardiac masses. Compared to the study from 01/19/2019, there may not be a significant change in the 2D findings Dr Trice Ballard MD [facility] (Electronically Signed) Final Date: 18 November 2020 21:00 S
--- NOTE | 2020-11-18 06:19 | PM.HP ---
Providers/Chief Complaint Admitting Physician: Barbara Avila MD Primary Care Provider: Blaise Amato, NETWORK TECHNICIAN-C Chief Complaint: real weak,dizzy History of Present Illness Edgardo Price is a 85 year old male with past medical history of CAD, mitral valve repair, hypertension, type 2 diabetes mellitus, mixed hyperlipidemia, atrial fibrillation, BPH on chronic anticoagulation with warfarin who lives by himself was brought into the ER last night by his son because of episode of dizziness. Patient is a poor historian. Patient states he was at his baseline health last night when he had an episode of lightheadedness and dizziness. Denied any chest pain, palpitations, nausea vomiting, diarrhea, weakness in any of arms or legs, bowel or bladder accidents, confusion, difficulty in breathing prior to or during the episode. He stated over dizziness he called his son and came to the ER. He states he has been having more more difficulty in passing urine and maintaining urinary stream with occasional episode of dysuria for last 3 to 4 days. Denies any subjective fever fever. Blood work in the ER showed a white count of 6.3, hemoglobin of 10.6, INR of 2.19, sodium of 139, BUN of 25, creatinine of 0.9, baseline troponin of 31 with 2-hour delta of -1, proBNP of 1888, lipase of 17, UA with positive nitrite and 2+ leuk esterase with CT abdomen pelvis with contrast as below. Review of Systems General: Reports: 10 or more systems reviewed and unremarkable except in HPI and below Const: Denies: fever(s), chills or body aches Eyes: Denies: change in vision, blurry vision or photophobia ENMT: Reports: hoarseness; Denies: throat pain, enlarged tonsils, odynophagia or nasal congestion Card: Denies: chest pain, palpitations, irregular heart rhythm, edema, swelling of feet/ankles, lightheadedness, pre-syncope, dyspnea on exertion or orthopnea Resp: Denies: dyspnea, productive cough, non-productive cough, wheezing, stridor, pain on inspiration, change in phlegm color, hemoptysis or chest congestion GI: Denies: abdominal pain, nausea, vomiting, hematemesis, coffee ground emesis, dysphagia, heartburn, diarrhea, constipation, GI cramping, change in stool character, hematochezia or melena : Denies: flank pain, dysuria, urinary frequency, urinary urgency, urinary hesitancy or hematuria Musc: Denies: neck pain, back pain, extremity pain, joint swelling, joint warmth or deformity Neuro: Denies: headache(s), numbness in extremities, weakness in extremities, sensory changes, difficulty walking, frequent falls, dizziness, vertigo, behavioral changes, Slurred speech present or seizure-like activity Psych: Denies: anxiety, depression, suicidal ideation or homicidal ideation Endo: Denies: polyuria, polydipsia, tired all the time, cold intolerance or hot flashes Stalin/Lymph: Denies: easy bruising or easy bleeding Medications/Allergies Home Medications Medication Instructions Recorded Confirmed Last Taken Type nitroglycerin 0.4 mg sublingual 0.4 mg SUBLINGUAL Q5M PRN #25 tab 10/28/20 11/18/20 Unknown Rx tablet enalapril maleate 5 mg tablet 5 mg PO BID #60 tab 11/10/20 11/18/20 Unknown Rx famotidine 20 mg tablet 20 mg PO DAILY #30 tab 11/10/20 11/18/20 Unknown Rx ferrous sulfate 325 mg (65 mg 325 mg PO DAILY #30 tab 11/10/20 11/18/20 Unknown Rx iron) tablet furosemide 20 mg tablet 20 mg PO DAILY #30 tab 11/10/20 11/18/20 Unknown Rx metformin 500 mg tablet,extended 500 mg PO BID #60 tab 11/10/20 11/18/20 Unknown Rx release 24 hr potassium chloride 10 mEq 10 meq PO DAILY #30 tab 11/10/20 11/18/20 Unknown Rx tablet,extended release pravastatin 40 mg tablet 40 mg PO DAILY #90 tab 11/10/20 11/18/20 Unknown Rx Flomax 0.4 mg PO BID 11/18/20 11/18/20 Unknown History carbidopa-levodopa 1 tab PO BID 11/18/20 11/18/20 Unknown History cyanocobalamin (vitamin B-12) 1,000 mcg IM Q30D 11/18/20 11/18/20 Unknown History warfarin See Rx Instructions PO .COMPLEX 11/18/20 11/18/20 Unknown History Allergies Allergy/AdvReac Type Severity Reaction Status Date / Time aspirin Allergy ADR-Gastrointestinal Verified 11/18/20 09:27 Upset PFSH Acute PFSH: Medical History (Updated 11/18/20 @ 12:54 by Barbara Avila MD) Anemia Anticoagulant disorder Atherosclerotic heart disease of [place] coronary artery without angina pectoris Atrial fibrillation Controlled type 2 diabetes mellitus with hyperglycemia, without long-term current use of insulin Dietary vitamin B12 deficiency anemia Essential (primary) hypertension Gastric reflux Iron deficiency Memory changes Mixed hyperlipidemia Parkinson's disease Urinary hesitancy Warfarin anticoagulation Surgical History H/O mitral valve repair S/P mitral valve repair Family History Mother Dementia Daughter Diabetes Denies family history of CAD (coronary artery disease) Clotting disorder Chronic kidney disease (CKD) Suicide Anesthesia complication Bleeding disorder Lung disease Cancer Stroke Social History Second hand smoke exposure: No Smoking risk assessment/counseling performed?: No Alcohol intake: never Desire information about alcohol rehabilitation?: No Counseling given: No Desire information about substance/drug rehabilitation?: No Counseling given: No Adopted: No Caregiver/support person: No Lives independently: Yes Household members: none Housing: House Marital status: / Current occupational status: retired History of recent travel: No Current gender identity: Male Vitals/I&O/Wt Last Vital Signs Temp 97.8 F 11/18/20 03:41 Pulse 76 11/18/20 03:41 Resp 18 11/18/20 03:41 BP 136/87 11/18/20 03:41 Pulse Ox 94 11/18/20 03:41 11/17/20 11/17/20 11/18/20 14:59 22:59 06:59 Intake Total 50 / 50 Balance 50 / 50 Weight last 48 hrs Weight 81.647 kg Physical Exam Const: COMMON NORMALS: no acute distress, average body habitus, patient oriented x3, no limitations, healthy appearing, alert and well nourished HENMT: COMMON NORMALS: normocephalic and atraumatic HEAD & SCALP: normocephalic and atraumatic Eye: COMMON NORMALS: Equal, round and reactive pupils present, EOMs intact bilaterally, conjunctivae normal and no scleral icterus CONJUNCTIVA: Yes conjunctivae normal PUPIL: Yes Equal, round and reactive pupils present Neck/C-Spine: COMMON NORMALS: no JVD Resp: COMMON NORMALS: normal respiratory effort, No retractions, No use of accessory muscles, clear to auscultation bilaterally and percussion normal AUSCULTATION: clear to auscultation bilaterally PERCUSSION: percussion normal Cardio: COMMON NORMALS: no JVD, regular rate, regular rhythm, S1 normal heart sound present, S2 normal heart sound present, No gallops present (Cardio), No clicks present (Cardio), No murmurs present (Cardio), No rub (Cardio) and Peripheral pulses 2+ throughout RATE: regular rate RHYTHM: regular rhythm HEART SOUNDS: S1 normal heart sound present and S2 normal heart sound present PERIPHERAL PULSES: Peripheral pulses 2+ throughout GI: COMMON NORMALS: Normal to inspection, nondistended, normoactive bowel sounds present, Soft to palpation, non-tender, No hepatosplenomegaly present, no masses and no bruits PALPATION: Yes Soft to palpation and Yes No hepatosplenomegaly present Extremity: COMMON NORMALS: normal to inspection, full ROM, capillary refill normal, no joint enlargement, no clubbing, cyanosis or edema, no calf tenderness and no pedal edema Neuro: COMMON NORMALS: patient oriented x3, CN's II-XII intact bilaterally, moves all extremities, no focal motor deficits, no sensory deficits noted, deep tendon reflexes 2+ bilaterally and gait normal SENSORIUM/ORIENTATION: Yes alert Data : 11/18/20 06:26 11/18/20 06:26 A&P Assessment and plan (1) Pre-syncope: Status: Acute (2) Acute UTI: Status: Acute (3) Atherosclerotic heart disease of [place] coronary artery without angina pectoris: Status: Acute Qualifiers: [place] vs. transplanted heart: [place] heart Qualified Code(s): I25.10 - Atherosclerotic heart disease of [place] coronary artery without angina pectoris (4) S/P mitral valve repair: Status: Acute (5) Essential (primary) hypertension: Status: Chronic (6) Atrial fibrillation: Status: Chronic Qualifiers: Atrial fibrillation type: paroxysmal Qualified Code(s): I48.0 - Paroxysmal atrial fibrillation (7) Controlled type 2 diabetes mellitus with hyperglycemia, without long-term current use of insulin: Status: Chronic (8) Dietary vitamin B12 deficiency anemia: Status: Chronic (9) Warfarin anticoagulation: Status: Acute (10) Parkinson's disease: Status: Chronic Additional A&P Information Presyncope: Unknown etiology. No neurological deficit. CT head, CTA head and neck and abdominal CT results appreciated. Does have history of atrial fibrillation with mitral valve repair. Troponin cycle. Denies any chest pain though. 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 Has history of type 2 diabetes mellitus but only on Metformin. Unlikely hypoglycemia. Could be secondary to neuropathy from vitamin B12 deficiency. Could be secondary to advancing Parkinson's. Cannot rule out secondary to possible UTI/prostatitis. Check orthostatic, urine culture, blood culture, proBNP, procalcitonin, iron panel, vitamin B12 level, folate level, HbA1c, lipid panel, echocardiogram. No signs of dehydration. Hold off on IV hydration. UTI: Continue with IV ceftriaxone once daily. Will de-escalate antibiotics as per culture results. No signs of obstruction on CT abdomen pelvis. We will check ultrasound kidney and bladder with PVR. Check PSA. Continue with Flomax. Add finasteride. History of CAD: Denies any active chest pain. A1c lipid panel as above. Not on aspirin or Plavix. Continue with statins. Follows up with Dr. Ballard as an outpatient. Patient seems euvolemic. For now hold off on Lasix. Atrial fibrillation: Rate controlled. INR at goal. Continue with warfarin at home dose. Denies any bleeding complications. Telemetry. Type 2 diabetes mellitus: Insulin sliding scale at low-dose protocol. Continue other chronic medication. Full code. Carb consistent cardiac diet. Warfarin to help with DVT prophylaxis. Famotidine for PUD prophylaxis. Attestations Medical Necessity Statement*: Admission for more than 2 midnights for management of presyncope, complicated UTI in male Time Spent in Patient Care: Greater than 35 minutes (>than 50% of time spent in counselling and/or direct pt care on unit). Coding Level of Care Code Acute Hair Weaver for [facility] Fwd Diagnoses Pre-syncope R55 Acute UTI N39.0 Atherosclerotic heart disease of [place] coronary artery without angina pectoris I25.10 [place] vs. transplanted heart: [place] heart S/P mitral valve repair Z98.890 Essential (primary) hypertension I10 Atrial fibrillation I48.0 Atrial fibrillation type: paroxysmal Controlled type 2 diabetes mellitus with hyperglycemia, without long-term current use of insulin E11.65 Dietary vitamin B12 deficiency anemia D51.8 Warfarin anticoagulation Z79.01 Parkinson's disease G20
[2020-11-18 06:52] LABS: Basophils % 0.6 %; Eosinophils # 0.1 10^3/uL (0.0-0.8); Eosinophils % 2.2 %; Hemoglobin 9.5 g/dL (11.7-16.6); Lymphocytes # 1.6 10^3/uL (0.8-4.8); Lymphocytes % 31.3 %; Mean Corpuscular HGB Conc 31.7 g/dL (30.0-36.0); Mean Corpuscular Hemoglobin 28.7 pg (28.0-34.0); Mean Corpuscular Volume 90.6 fl (80-94); Mean Platelet Volume 9.6 fL (7.4-10.4); Monocytes # 0.5 10^3/uL (0.2-0.9); Monocytes % 8.8 %; Neutrophils # 2.91 10^3/uL (1.8-7.7); Neutrophils % 56.9 %; Nucleated Red Blood Cells % 0 %; Platelet Count 268 10^3/cmm (130-400); Red Blood Count 3.31 10^6/uL (4.1-5.3); Red Cell Distribution Width 14.5 % (12.1-15.1); White Blood Count 5.1 10^3/uL (4.0-10.0)
[2020-11-18 07:18] LABS: Alanine Aminotransferase < 5 U/L (0-41); Albumin Level 3.5 g/dL (3.5-5.2); Alkaline Phosphatase 84 IU/L (40-130); Anion Gap 13.2 (5-19); Aspartate Amino Transferase 11 U/L (0-40); Blood Urea Nitrogen 23 mg/dL (8-23); Calcium 8.8 mg/dL (8.5-10.5); Carbon Dioxide 24 mmol/L (22-29); Chloride 103 mmol/L (98-107); Globulin 2.8 g/dL (1.3-4.6); Glucose 126 mg/dL (65-115); Osmolality Calculated 287 mOsm/kg (285-295); Potassium 4.2 mmol/L (3.5-5.1); Sodium 136 mmol/L (136-145); Total Bilirubin 0.3 mg/dL (0.15-1.2); Total Protein 6.3 g/dL (6.6-8.7)
[2020-11-18 07:19] LABS: Troponin 5 6HR 28.72 ng/L (0-15)
[2020-11-18 07:24] LABS: Troponin 5 6HR Delta -2.28 ng/L (0-12)
[2020-11-18] MEDS: pantoprazole DR 40 mg Tablet PO (08:46)
--- NOTE | 2020-11-18 09:28 | PC.PHAR ---
pt states he takes care of his own medications-pt states he puts them in a materials planner but is unsure of all the names and mgs-pt states he takes warfarin 5mg on sun,mon,tues,wed,thurs and 2.5mg on fri and sat-rx written in 11/10/20 for 5mg 6days and 2.5mg one day week-medications entered are meds that show have been filled on ext med history-notes are made in the pharmacy comments
--- NOTE | 2020-11-18 10:30 | PC.CHAP ---
Pastoral Care Encounter/Spiritual Assessment Type of Contact [] Declined food preparation worker visit [] Patient/Family/Request visit [] Outpatient visit [] Follow-up visit [] Physician referral [] Code/Alert [x] Routine visit [] Staff referral [] Actively dying [] Patient sleeping [] Family support [] [] Out of room [] Palliative care [] [] Receiving care in room [] Pre-surgical visit [] Trauma [] Long length of stay [] ICU visit [] Other: Relational/Emotional Strength [x] Patient feels connected with others/family/visitors/staff [] Distress [] Loneliness/isolation [] Abandonment Spirituality of Patient [x] Person of Mimi [] Attends Sabianism of their Mimi [x] Believes in Prayer [] Reads Bible or Hoahaoism materials [] There are Spiritual issues to be addressed Lighting Technician Interventions [x] Prayer [x] Active listening [x] Non-anxious presence [x] Spiritual/emotional support [] Crisis/trauma care [] Spiritual counseling [] Bereavement support [] Provided bereavement packet [] Provided Bible/devotional materials [] Provided toy/stuffed animal, coloring book to patient or family member [] Provided Communion [] Anointing/[place] [] Salvation [x] Completed spiritual assessment [] Other: Impact on Illness or Injury [] Angry [] Fearful [] Anxious [] Often cries [] Exhaustion [] Unable to work [] Unable to attend uatsdin [] Unable to walk/stand [] Unable to read [] Unable to drive [] Unable to eat/drink [] Unable to sleep [] Unable to be with family [] Patient intubated [] Other: Summary Pt had episode yesterday in the [place] where he blacked out. He stated he was in the [place] three hours but also said he nephew was with him and assisted him. Pt was not in hospital gown but instead in overall while in bed. He said he refused to put on the gown. Time spent with patient 15 m
[2020-11-18 11:21] LABS: Glucose Point of Care 165 mg/dL (70-110)
--- NOTE | 2020-11-18 12:41 | US_ITS ---
WS: [id number] RENAL ULTRASOUND HISTORY: UTI, possible obstruction, PVR assessment COMPARISON: None available. TECHNIQUE: 2-D and color Doppler imaging of the kidney submitted. Right kidney: 8.4 cm x 3.9 cm x 3.8 cm. Moderate renal atrophy with marked increased echogenicity. No hydronephrosis. No mass identified but evaluation is limited due to body habitus. Left kidney: 9.7 cm x 4.8 cm x 4.3 cm. Normal size kidney. No hydronephrosis or mass. Aorta: Not visualized. Urinary Bladder: Well-distended urinary bladder. Markedly enlarged prostate gland is lobulated. Prost ate measures 4.3 x 4.3 x 3.4 cm. US/US renal BI* [id number] IMPRESSION: 1. Mild bilateral renal atrophy. 2. No renal obstruction.
[2020-11-18] MEDS: ferrous sulfate EC 325 mg Tablet PO (12:55)
[2020-11-18] MEDS: warfarin 5 mg Tablet PO (12:56)
--- NOTE | 2020-11-18 13:17 | PM.PN ---
Subjective Subjective: Interval history: On examination today lying comfortably in bed. Admitted a few hours ago. Discussed patient's history with daughter over the phone. States he is being worked up as an outpatient for possible anemia. And has been complaining of difficulty with maintaining urinary stream for few months. On examination patient denies any further dizziness. Mildly forgetful. Denies any nausea vomiting, headache, diarrhea, fever. Vitals/I&O/Wt Last Vital Signs Temp 97.6 F 11/18/20 11:02 Pulse 71 11/18/20 11:02 Resp 16 11/18/20 11:02 BP 115/72 11/18/20 11:02 Pulse Ox 98 11/18/20 11:02 11/17/20 11/18/20 11/18/20 22:59 06:59 14:59 Intake Total 50 / 50 360 / 360 Balance 50 / 50 360 / 360 Weight last 48 hrs Weight 81.647 kg Physical Exam Narrative: EXAM NARRATIVE: General: No acute distress, AO x3, mildly forgetful HEENT: PERRLA, pupils bilaterally equal and reactive Chest: Normal vesicular breath sounds, no added sounds, equal good air entry bilaterally CVS: S1-S2 regular, no murmurs, no tachycardia, no gallops, no rubs Abdomen: Soft, nontender, no organomegaly, bowel sounds present Neuro: No focal deficits, no facial deformity, AO x3, power 5/5 in all limbs Data : 11/18/20 06:26 11/18/20 06:26 A&P Assessment and plan (1) Pre-syncope: Status: Acute (2) Acute UTI: Status: Acute (3) Atherosclerotic heart disease of [place] coronary artery without angina pectoris: Status: Acute Qualifiers: [place] vs. transplanted heart: [place] heart Qualified Code(s): I25.10 - Atherosclerotic heart disease of [place] coronary artery without angina pectoris (4) S/P mitral valve repair: Status: Acute (5) Essential (primary) hypertension: Status: Chronic (6) Atrial fibrillation: Status: Chronic Qualifiers: Atrial fibrillation type: paroxysmal Qualified Code(s): I48.0 - Paroxysmal atrial fibrillation (7) Controlled type 2 diabetes mellitus with hyperglycemia, without long-term current use of insulin: Status: Chronic (8) Dietary vitamin B12 deficiency anemia: Status: Chronic (9) Warfarin anticoagulation: Status: Acute (10) Parkinson's disease: Status: Chronic Additional A&P Information Presyncope: Unknown etiology. No neurological deficit. CT head, CTA head and neck and abdominal CT results appreciated. Does have history of atrial fibrillation with mitral valve repair. Troponin cycle negative. Denies any chest pain though. 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 Has history of type 2 diabetes mellitus but only on Metformin. Unlikely hypoglycemia. Could be secondary to neuropathy from vitamin B12 deficiency. Could be secondary to advancing Parkinson's. Cannot rule out secondary to possible UTI/prostatitis. Check orthostatic, urine culture, blood culture, proBNP, procalcitonin, iron panel, vitamin B12 level, folate level, HbA1c, lipid panel, echocardiogram. No signs of dehydration. Hold off on IV hydration. UTI: Continue with IV ceftriaxone once daily. Will de-escalate antibiotics as per culture results. No signs of obstruction on CT abdomen pelvis. We will check ultrasound kidney and bladder with PVR. Check PSA. Continue with Flomax. Add finasteride. History of CAD: Denies any active chest pain. A1c lipid panel as above. Not on aspirin or Plavix. Continue with statins. Follows up with Dr. Ballard as an outpatient. Patient seems euvolemic. For now hold off on Lasix. Atrial fibrillation: Rate controlled. INR at goal. Continue with warfarin at home dose. Denies any bleeding complications. Telemetry. Type 2 diabetes mellitus: Insulin sliding scale at low-dose protocol. Continue other chronic medication. Full code. Carb consistent cardiac diet. Warfarin to help with DVT prophylaxis. Famotidine for PUD prophylaxis. We will make further changes as per results of the investigation on an early in the morning today. Attestations Medical Necessity Statement*: Requires continued hospitalization for further evaluation of UTI in male, presyncope Time Spent in Patient Care: Greater than 35 minutes (>than 50% of time spent in counselling and/or direct pt care on unit). Coding Level of Care Code Acute [place] for [facility] Fwd Diagnoses Pre-syncope R55 Acute UTI N39.0 Atherosclerotic heart disease of [place] coronary artery without angina pectoris I25.10 [place] vs. transplanted heart: [place] heart S/P mitral valve repair Z98.890 Essential (primary) hypertension I10 Atrial fibrillation I48.0 Atrial fibrillation type: paroxysmal Controlled type 2 diabetes mellitus with hyperglycemia, without long-term current use of insulin E11.65 Dietary vitamin B12 deficiency anemia D51.8 Warfarin anticoagulation Z79.01 Parkinson's disease G20
[2020-11-18 13:30] LABS: Estmated Average Glucose 151; Hemoglobin A1C 6.9 % (4.0-6.0)
[2020-11-18 14:03] LABS: NT Pro B Type Natriuretic Pept 2116 pg/mL (0-450); Procalcitonin 0.07 ng/mL (0-0.5)
[2020-11-18 14:08] LABS: Folate Level 8.3 ng/mL (4.5-32.2)
[2020-11-18 14:10] LABS: Chol HDL Ratio 2.45 mg/dL (1.0-5.00); Cholesterol 169 mg/dL (0-200); HDL Cholesterol 69 mg/dL (60-100); LDL Cholesterol Calculated 89 mg/dL (50-129); Thyroid Stimulating Hormone 6.17 uIU/mL (0.27-4.20); Triglycerides 57 mg/dL (0-150); VLDL Cholestrol Calculation 11 mg/dL (0-30); Vitamin B12 365 pg/mL (232-1245)
[2020-11-18 14:21] LABS: Iron 37 ug/dL (59-158); Percent Saturation 12.6 % (20-50); Total Iron Binding Capacity 292 mcg/dl; Unsaturated Iron Binding 255 ug/dL (112-347)
[2020-11-18 15:25] LABS: D Dimer 0.97 ug/mIFEU (0-0.59)
[2020-11-18 15:27] LABS: Free T4 Free Thyroxine 0.94 ng/dL (0.82-1.77); T3 Free 2.3 PG/ML (2.0-4.4)
[2020-11-18] MEDS: tamsulosin 0.4 mg Capsule PO (16:39)
[2020-11-18] MEDS: sodium chloride 0.9% 250 ML 100 ML IV (16:39)
[2020-11-18] MEDS: carbidopa-levodopa ER 50-200mg Tablet 1 EACH PO (16:39)
[2020-11-18 17:08] LABS: Glucose Point of Care 263 mg/dL (70-110)
[2020-11-18] MEDS: finasteride 5 mg Tablet PO (20:52)
[2020-11-18] MEDS: pantoprazole 40 mg SDV IVP (22:03)
[2020-11-18 22:14] LABS: Glucose Point of Care 131 mg/dL (70-110)
[2020-11-19] VITALS: BP 124/69; PULSE 60; RESP 16; TEMP 36.7; O2SAT 94
[2020-11-19] MEDS: cefTRIAXone 1,000 MG in sodium chloride 0.9% (plus) 50 ML 100 MG IV (02:25)
[2020-11-19 06:00] VITALS: PULSE 90
[2020-11-19 08:00] VITALS: BP 117/69; BP 131/70; BP 152/74; PULSE 83; PULSE 84; PULSE 88; RESP 16; TEMP 36.6; O2SAT 98
[2020-11-19] MEDS: pantoprazole 40 mg SDV IVP (08:42)
[2020-11-19 09:39] VITALS: BP 120/67; BP 126/67; BP 139/74; PULSE 82; PULSE 88; PULSE 90
[2020-11-19] MEDS: carbidopa-levodopa ER 50-200mg Tablet 1 EACH PO (09:49)
[2020-11-19] MEDS: tamsulosin 0.4 mg Capsule PO (09:49)
[2020-11-19] MEDS: atorvastatin 40 mg Tablet 20 MG PO (09:49)
--- NOTE | 2020-11-19 09:52 | PC.CHAP ---
Pastoral Care Encounter/Spiritual Assessment Type of Contact [] Declined algebraist visit [] Patient/Family/Request visit [] Outpatient visit [] Follow-up visit [] Physician referral [] Code/Alert [x] Routine visit [] Staff referral [] Actively dying [] Patient sleeping [] Family support [] [] Out of room [] Palliative care [] [] Receiving care in room [] Pre-surgical visit [] Trauma [] Long length of stay [] ICU visit [] Other: Relational/Emotional Strength [x] Patient feels connected with others/family/visitors/staff [] Distress [] Loneliness/isolation [] Abandonment Spirituality of Patient [x] Person of Mimi [x] Attends Faith of their Mimi [x] Believes in Prayer []x Reads Bible or Amish materials [] There are Spiritual issues to be addressed Legal Coordinator Interventions [x Prayer [x] Active listening [x] Non-anxious presence [x] Spiritual/emotional support [] Crisis/trauma care [] Spiritual counseling [] Bereavement support [] Provided bereavement packet [] Provided Bible/devotional materials [] Provided toy/stuffed animal, coloring book to patient or family member [] Provided Communion [] Anointing/[place] [] Salvation [x] Completed spiritual assessment [] Other: Impact on Illness or Injury [] Angry [] Fearful [] Anxious [] Often cries [] Exhaustion [] Unable to work [] Unable to attend alevism [] Unable to walk/stand [] Unable to read [] Unable to drive [] Unable to eat/drink [] Unable to sleep [] Unable to be with family [] Patient intubated [] Other: Summary going home going home Time spent with patient 15 min
[2020-11-19 11:05] LABS: Glucose Point of Care 172 mg/dL (70-110)
[2020-11-19 11:52] VITALS: BP 126/67; PULSE 82; RESP 16; TEMP 36.4; O2SAT 97
--- NOTE | 2020-11-19 12:27 | PM.DCS ---
Discharge Providers Date of Admission: 11/18/20 13:08 Date of Discharge: November 19, 2020 Attending Provider at Admission: Barbara Avila MD Attending Provider at Discharge: Emil Contreras MD Primary Care Provider: YAN Joiner Diagnoses at Discharge Discharge Diagnosis (1) Pre-syncope: Status: Acute (2) Acute UTI: Status: Acute (3) Atherosclerotic heart disease of [place] coronary artery without angina pectoris: Status: Acute Qualifiers: [place] vs. transplanted heart: [place] heart Qualified Code(s): I25.10 - Atherosclerotic heart disease of [place] coronary artery without angina pectoris (4) S/P mitral valve repair: Status: Acute (5) Essential (primary) hypertension: Status: Chronic (6) Atrial fibrillation: Status: Chronic Qualifiers: Atrial fibrillation type: paroxysmal Qualified Code(s): I48.0 - Paroxysmal atrial fibrillation (7) Controlled type 2 diabetes mellitus with hyperglycemia, without long-term current use of insulin: Status: Chronic (8) Dietary vitamin B12 deficiency anemia: Status: Chronic (9) Warfarin anticoagulation: Status: Acute (10) Parkinson's disease: Status: Chronic Reason for Visit Reason for Visit: real weak,dizzy Hospital Course Hospital Course Edgardo Price is a 85 year old male with past medical history of CAD, mitral valve repair, hypertension, type 2 diabetes mellitus, mixed hyperlipidemia, atrial fibrillation, BPH on chronic anticoagulation with warfarin who lives by himself was brought into the ER last night by his son because of episode of dizziness. Patient himself is a poor historian. History was taken over the phone through his daughter and son. They stated that patient was doing well till evening prior to admission when he started having dizziness for which he presented to the ER. Patient denied of having any other complaints other than weak urinary stream which has been getting worse for last few months with mild dysuria for last 1 week. Patient's blood work on admission showed a white count of 6.3, hemoglobin of 10.6 with a negative troponin trend and UA positive for nitrate and leukoesterase. On review of chart it seems patient also has history of prostatitis late last year. CT abdomen pelvis was done which was negative for any urinary obstruction. Kidney and bladder ultrasound was done which showed significant prostatomegaly. Patient was given gentle IV hydration, started on broad-spectrum antibiotics for UTI. Serial orthostatic checks were done and he responded well to the treatment. Etiology of presyncope is unknown but it could be a combination of advancing Parkinson's along with mild UTI/prostatitis in setting of significant BPH along with polypharmacy of antihypertensives. Patient was orthostatic on admission for which his home dose of furosemide and enalapril were withheld. HbA1c was checked and was within normal limits. Patient remained on telemetry during hospitalization and remained rate controlled. Patient is been discharged in hemodynamically stable condition with advised to take oral levofloxacin for 6 more days to finish her course of 7-day for UTI/prostatitis. Follow-up with Dr. Comer for BPH. Finasteride has been added to his medication list. Enalapril has been changed to once daily and Lasix has been changed to every other day. Physical Exam Narrative: EXAM NARRATIVE: General: No acute distress, AO x3, mildly forgetful HEENT: PERRLA, pupils bilaterally equal and reactive Chest: Normal vesicular breath sounds, no added sounds, equal good air entry bilaterally CVS: S1-S2 regular, no murmurs, no tachycardia, no gallops, no rubs Abdomen: Soft, nontender, no organomegaly, bowel sounds present Neuro: No focal deficits, no facial deformity, AO x3, power 5/5 in all limbs Discharge Data Data Completed and Pending: Completed Studies During Hospitalization Category Date Time Status CT abdomen pelvis w con* [id number] Urge nt Cat Scan 11/17/20 23:[address] angio headneck * [id number] Urge nt Cat Scan 11/18/20 00:[address] head wo con* [id number] Urgent Cat Scan 11/18/20 00:03 Completed CV. echo complete * [id number] Routine Ultrasound 11/18/20 06:14 Completed US renal BI* [id number] Routine Ultrasound 11/18/20 12:41 Completed Pending at discharge Category Date Time Status Blood Culture Sta t Lab 11/18/20 14:14 Results MRSA by PCR Eloisei ne Lab 11/18/20 16:56 Received Urine Culture Sta t Lab 11/18/20 01:45 Results Labs from last 24 hours 11/19/20 11/18/20 11/18/20 10:57 22:11 16:55 D-Dimer POC Glucose 172 H 131 H 263 H Estimat Average Gl ucose Hemoglobin A1c Iron TIBC % Saturation Unsat Iron Binding NT-Pro-B Natriuret Pep Triglycerides Cholesterol LDL Cholesterol, C alc Total VLDL Cholest petey HDL Cholesterol Cholesterol/HDL Ra catia Prostate Specific Ag Vitamin B12 Folate Procalcitonin TSH Free T4 Free T3 11/18/20 11/18/20 11/18/20 14:14 06:26 06:26 D-Dimer 0.97 H POC Glucose Estimat Average Gl ucose Hemoglobin A1c Iron TIBC % Saturation Unsat Iron Binding NT-Pro-B Natriuret Pep Triglycerides Cholesterol LDL Cholesterol, C alc Total VLDL Cholest petey HDL Cholesterol Cholesterol/HDL Ra catia Prostate Specific Ag 2.040 Vitamin B12 Folate Procalcitonin TSH Free T4 0.94 Free T3 2.3 11/18/20 11/18/20 11/18/20 06:26 06:26 06:26 D-Dimer POC Glucose Estimat Average Gl ucose 151 Hemoglobin A1c 6.9 H Iron TIBC % Saturation Unsat Iron Binding NT-Pro-B Natriuret Pep Triglycerides 57 Cholesterol 169 LDL Cholesterol, C alc 89 Total VLDL Cholest petey 11 HDL Cholesterol 69 Cholesterol/HDL Ra catia 2.45 Prostate Specific Ag Vitamin B12 365 Folate 8.3 Procalcitonin TSH 6.17 H Free T4 Free T3 11/18/20 06:26 D-Dimer POC Glucose Estimat Average Gl ucose Hemoglobin A1c Iron 37 L TIBC 292 % Saturation 12.6 L Unsat Iron Binding 255 NT-Pro-B Natriuret Pep 2116 H Triglycerides Cholesterol LDL Cholesterol, C alc Total VLDL Cholest petey HDL Cholesterol Cholesterol/HDL Ra catia Prostate Specific Ag Vitamin B12 Folate Procalcitonin 0.07 TSH Free T4 Free T3 Addt'l Data from Hospital Stay: Laboratory Results WBC 5.1 10^3/uL (4.0- 10.0) 11/18/20 06:26 RBC 3.31 10^6/uL (4.1 -5.3) L 11/18/20 06:26 Hgb 9.5 g/dL (11.7-16 .6) L 11/18/20 06:26 Hct 30.0 % (42.0-52.0 ) L 11/18/20 06:26 MCV 90.6 fl (80-94) 11/18/20 06:26 MCH 28.7 pg (28.0-34. 0) 11/18/20 06:26 MCHC 31.7 g/dL (30.0-3 6.0) 11/18/20 06:26 RDW 14.5 % (12.1-15.1 ) 11/18/20 06:26 Plt Count 268 10^3/cmm (130 -400) 11/18/20 06:26 MPV 9.6 fL (7.4-10.4) 11/18/20 06:26 Neut % (Auto) 56.9 % 11/18/20 06:26 Lymph % (Auto) 31.3 % 11/18/20 06:26 Leon % (Auto) 8.8 % 11/18/20 06:26 Eos % (Auto) 2.2 % 11/18/20 06:26 Baso % (Auto) 0.6 % 11/18/20 06:26 Neut # (Auto) 2.91 10^3/uL (1.8 -7.7) 11/18/20 06:26 Lymph # (Auto) 1.6 10^3/uL (0.8- 4.8) 11/18/20 06:26 Leon # (Auto) 0.5 10^3/uL (0.2- 0.9) 11/18/20 06:26 Eos # (Auto) 0.1 10^3/uL (0.0- 0.8) 11/18/20 06:26 Baso # (Auto) 0.0 10^3/uL (0.0- 0.1) 11/18/20 06:26 Nucleated RBC % (a uto) 0 % 11/18/20 06:26 Nucleated RBCs # 0.0 /100WBC 11/18/20 06:26 PT 24.80 SECONDS (12 .1-14.9) H 11/18/20 00:15 INR 2.19 (0.8-1.2) H 11/18/20 00:15 APTT 29.3 SECONDS (23. 9-36.7) 11/18/20 00:15 D-Dimer 0.97 ug/mIFEU (0- 0.59) H 11/18/20 14:14 Sodium 136 mmol/L (136-1 45) 11/18/20 06:26 Potassium 4.2 mmol/L (3.5-5 .1) 11/18/20 06:26 Chloride 103 mmol/L (98-10 7) 11/18/20 06:26 Carbon Dioxide 24 mmol/L (22-29) 11/18/20 06:26 Anion Gap 13.2 (5-19) 11/18/20 06:26 BUN 23 mg/dL (8-23) 11/18/20 06:26 Creatinine 0.9 mg/dL (0.7-1. 2) 11/18/20 06:26 GFR Calculation Not Reportable 11/18/20 06:26 Glucose 126 mg/dL (65-115 ) H 11/18/20 06:26 POC Glucose 172 mg/dL (70-110 ) H 11/19/20 10:57 Estimat Average Gl ucose 151 11/18/20 06:26 Hemoglobin A1c 6.9 % (4.0-6.0) H 11/18/20 06:26 Calculated Osmolal ity 287 mOsm/kg (285- 295) 11/18/20 06:26 Calcium 8.8 mg/dL (8.5-10 .5) 11/18/20 06:26 Iron 37 ug/dL (59-158) L 11/18/20 06:26 TIBC 292 mcg/dl 11/18/20 06:26 % Saturation 12.6 % (20-50) L 11/18/20 06:26 Unsat Iron Binding 255 ug/dL (112-34 7) 11/18/20 06:26 Total Bilirubin 0.3 mg/dL (0.15-1 .2) 11/18/20 06:26 AST 11 U/L (0-40) 11/18/20 06:26 ALT < 5 U/L (0-41) 11/18/20 06:26 Alkaline Phosphata se 84 IU/L (40-130) 11/18/20 06:26 Troponin T Baselin e 31 ng/L (0-15) H 11/18/20 00:15 Troponin T 120 Min shelbi 29.30 ng/L (0-15) H 11/18/20 02:40 Delta Troponin T -1.70 ABS# (0-10) L 11/18/20 02:40 Troponin T Hi Sens 6Hr 28.72 ng/L (0-15) H 11/18/20 06:26 Troponin T Hi Sens 6Hr Delta -2.28 ng/L (0-12) L 11/18/20 06:26 NT-Pro-B Natriuret Pep 2116 pg/mL (0-450 ) H 11/18/20 06:26 Total Protein 6.3 g/dL (6.6-8.7 ) L 11/18/20 06:26 Albumin 3.5 g/dL (3.5-5.2 ) 11/18/20 06:26 Globulin 2.8 g/dL (1.3-4.6 ) 11/18/20 06:26 Triglycerides 57 mg/dL (0-150) 11/18/20 06:26 Cholesterol 169 mg/dL (0-200) 11/18/20 06:26 LDL Cholesterol, C alc 89 mg/dL (50-129) 11/18/20 06:26 Total VLDL Cholest petey 11 mg/dL (0-30) 11/18/20 06:26 HDL Cholesterol 69 mg/dL (60-100) 11/18/20 06:26 Cholesterol/HDL Ra catia 2.45 mg/dL (1.0-5 .00) 11/18/20 06:26 Lipase 17 U/L (13-60) 11/18/20 00:15 Prostate Specific Ag 2.040 ng/mL (0-4) 11/18/20 06:26 Vitamin B12 365 pg/mL (232-12 45) 11/18/20 06:26 Folate 8.3 ng/mL (4.5-32 .2) 11/18/20 06:26 Procalcitonin 0.07 ng/mL (0-0.5 ) 11/18/20 06:26 TSH 6.17 uIU/mL (0.27 -4.20) H 11/18/20 06:26 Free T4 0.94 ng/dL (0.82- 1.77) 11/18/20 06:26 Free T3 2.3 PG/ML (2.0-4. 4) 11/18/20 06:26 Urine Color Straw (Yellow) 11/18/20 01:45 Urine Appearance Sl hazy (CLEAR) 11/18/20 01:45 Urine pH 5 (5-7) 11/18/20 01:45 Ur Specific Gravit y 1.000 (1.005-1.0 30) L 11/18/20 01:45 Urine Protein Neg (Negative) 11/18/20 01:45 Urine Glucose (UA) Norm (Normal) 11/18/20 01:45 Urine Ketones Negative (Negati ve) 11/18/20 01:45 Urine Blood Neg (Negative) 11/18/20 01:45 Urine Nitrate Positive (Negati ve) H 11/18/20 01:45 Urine Bilirubin Neg (Negative) 11/18/20 01:45 Urine Urobilinogen Norm mg/dL (Negat jeff) 11/18/20 01:45 Ur Leukocyte Ynes ase 2+ (Negative) H 11/18/20 01:45 Urine RBC Rare /hpf (0-2) 11/18/20 01:45 Urine WBC 55-80 /hpf (0-5) H 11/18/20 01:45 Ur Squamous Epith Cells 0-4 /hpf (0-5) H 11/18/20 01:45 Amorphous Sediment Not Reportable 11/18/20 01:45 Urine Bacteria Trace /hpf (NONE) 11/18/20 01:45 Impressions Abdomen/Pelvis CT 11/17/20 23:57 IMPRESSION: 1. Moderate colonic diverticulosis. 2. Lobulated liver contour with areas of scarring and fibrosis. Radiation Dose CTDIVOL = (mGy): DLP = 1579.69 (mGy-cm) Head CT 11/18/20 00:03 IMPRESSION: Negative for acute intracranial abnormality. Radiation Dose CTDIVOL = (mGy): DLP = 881.22 (mGy-cm) Head/Neck CTA 11/18/20 00:03 IMPRESSION: Less than 50% stenosis in the carotid arteries. REFERENCES: NASCET CRITERIA. The degree of internal carotid artery stenosis is based on NASCET criteria. Normal is no stenosis. Mild is less than 50% stenosis. Moderate is 50-69% stenosis. Severe is 70% to 99% stenosis. Total occlusion is no detectable patent lumen. Radiation Dose CTDIVOL = (mGy): DLP = 2510.02~2510.02 (mGy-cm) Renal Ultrasound 11/18/20 12:41 IMPRESSION: 1. Mild bilateral renal atrophy. 2. No renal obstruction. Microbiology 11/18/20 01:45 Urine,Clean Catch Urine Culture - Preliminary Gram Negative Rods 11/18/20 14:14 Blood Blood Culture - Preliminary SPECIMEN COLLECTED 11/18/20 14:14 Blood Blood Culture - Preliminary SPECIMEN COLLECTED Vitals: Last Vital Signs Temp 97.6 F 11/19/20 11:52 Pulse 82 11/19/20 11:52 Resp 16 11/19/20 11:52 BP 126/67 11/19/20 11:52 Pulse Ox 97 11/19/20 11:52 Discharge Plan Discharge Patient Disposition: Home Condition: Stable Prescriptions: New finasteride 5 mg Tablet 5 mg PO BEDTIME 30 Days Qty: 30 RF: 0 levofloxacin 500 mg tablet 500 mg PO Q24H 6 Days Qty: 6 RF: 0 Continued famotidine 20 mg tablet 20 mg PO DAILY Qty: 30 RF: 2 ferrous sulfate 325 mg (65 mg iron) tablet 325 mg PO DAILY Qty: 30 RF: 2 metformin 500 mg tablet extended release 24 hr 500 mg PO BID Qty: 60 RF: 2 potassium chloride 10 mEq tablet extended release 10 meq PO DAILY Qty: 30 RF: 2 pravastatin 40 mg tablet 40 mg PO DAILY Qty: 90 RF: 2 nitroglycerin 0.4 mg tablet, sublingual 0.4 mg SUBLINGUAL Q5M PRN (Reason: chest pain) Qty: 25 RF: 0 carbidopa-levodopa 50-200 mg tablet extended release 1 tab PO BID RF: 0 Flomax 0.4 mg capsule 0.4 mg PO BID RF: 0 cyanocobalamin (vitamin B-12) 1,000 mcg/mL solution 1,000 mcg IM Q30D RF: 0 warfarin 5 mg tablet See Rx Instructions PO .COMPLEX RF: 0 Changed enalapril maleate 5 mg tablet 5 mg PO DAILY Qty: 60 RF: 2 furosemide 20 mg tablet 20 mg PO EVERY OTHER DAY Qty: 30 RF: 2 Discharge Orders: Discharge Order (Routine); Ordered 11/19/20 Ordered By: Emil Contreras Referrals: Blaise Amato FNP-C [Primary Care Provider] - 7-10 days Wesley Comer MD [Physician] - 4-7 days Discharge Diet: Cardiac Discharge Activity: Resume usual activity Patient Instructions: Opioid Safety Activity Restrictions/Additional Instructions: Please take levofloxacin for 6 more days. Please follow-up with Dr. Comer for management of prostatitis/significant BPH. Dose of enalapril has been decreased to once daily. Lasix has been changed to every other day. Please maintain a blood pressure diary by checking blood pressure twice daily and follow-up with a primary care provider within next 7 to 10 days for further adjustment of antihypertensives. Discharge Attestations Time Spent in Discharge Care*: greater than 30 min Specific Discharge Activities: educating patient, educating and/or supporting family/caregiver, discussing with case consultant/social workers/dc planners, documenting/other paperwork and evaluating patient/reviewing data Status at Discharge: Cognitive status at discharge: mildly impaired cognition, Behavioral status at discharge: cooperative, Functional status at discharge: independent ambulation Overall status at discharge: patient is back to baseline Quality Metrics Clinical Quality Measures During this hospital stay, did patient experience: None Coding Level of Care Code Acute Chg FW DC note Diagnoses Pre-syncope R55 Acute UTI N39.0 Atherosclerotic heart disease of [place] coronary artery without angina pectoris I25.10 [place] vs. transplanted heart: [place] heart S/P mitral valve repair Z98.890 Essential (primary) hypertension I10 Atrial fibrillation I48.0 Atrial fibrillation type: paroxysmal Controlled type 2 diabetes mellitus with hyperglycemia, without long-term current use of insulin E11.65 Dietary vitamin B12 deficiency anemia D51.8 Warfarin anticoagulation Z79.01 Parkinson's disease G20
[2020-11-19] MEDS: warfarin 5 mg Tablet PO (13:48)
[2020-11-19] MEDS: ferrous sulfate EC 325 mg Tablet PO (13:48)
[2020-11-19 14:19] VITALS: BP 126/67; PULSE 82; RESP 16; TEMP 36.4; O2SAT 97
--- NOTE | 2020-11-19 14:22 | PC.NURSE ---
PT HAS DONE WELL FOR ME TODAY. HE IS REALLY WANTING TO GO HOME. PT IS AMBULATING AND HAVING GOOD URINE OUTPUT. PT WILL DISCHARGE TODAY PER HOSPITALIST. DISCHARGE PAPERWORK WAS GONE OVER WITH PT. ALL QUESTIONS ANSWERED. MEDICATIONS WERE SENT TO PHARMACY OF PTS CHOICE. IV WAS REMOVED. PT TOLERATED WELL. CATHETER TIP INTACT. PT WAS SAFELY WHEELED OUT BY THIS NURSE.
--- NOTE | 2020-11-20 12:36 | PC.SOCIAL ---
discharge follow up call made spoke with patient. patient hasn't filled new prescriptions but his grand daughter will pick them up tonight and bring medications over to fill pill box. patient is aware of follow up appointment w pcp and that dr. chiang office will call him with follow up appointment. patient doesn't have blood pressure cuff at this time but will have his grand daughter get one and start recording b/p. unable to obtain a lot of info from patient. will try to contact grand daughter pharmacy called regarding levaquin, they report that levaquin interacts with coumadin. per dr. Contreras patient will only take levaquin x 6 days so its ok to fill.
--- NOTE | 2020-11-20 16:03 | PC.SOCIAL ---
spoke with patients daughter, Katlyn. The family is taking care of patients medications and Blaise Amato will be helping to set up medications and record blood pressures.
== END 2020-11-19 14:26 | disposition home or self-care (01) | DRG 690 ==
LOC: ER 11-18 01:56 → MEDSURG 11-18 02:32
PROVIDERS: Admitting Provider Student in an Organized Health Care Education/Training Program; Emergency Provider Emergency Medicine; PCP Nurse Practitioner; Visit Provider Student in an Organized Health Care Education/Training Program
DX: N39.0 Urinary tract infection, site not specified (principal); R55 Syncope and collapse; I10 Essential (primary) hypertension; E11.65 Type 2 diabetes mellitus with hyperglycemia; G89.29 Other chronic pain; R10.9 Unspecified abdominal pain; I25.10 Atherosclerotic heart disease of native coronary artery without angina pectoris; I48.0 Paroxysmal atrial fibrillation; E78.2 Mixed hyperlipidemia; G20 Parkinson's disease; D51.3 Other dietary vitamin B12 deficiency anemia; N40.0 Benign prostatic hyperplasia without lower urinary tract symptoms; Z79.84 Long term (current) use of oral hypoglycemic drugs; Z79.01 Long term (current) use of anticoagulants
CPT/HCPCS: 36415; 36416; 70450; 70496; 70498; 74177; 76770; 80053; 80061; 81001; 82607; 82746; 82962; 83036; 83540; 83550; 83690; 83880; 84145; 84153; 84439; 84443; 84481; 84484; 85025; 85378; 85610; 85730; 87040; 87077; 87086; 87186; 87641; 93005; 93306; 96372; 99285; C9113; G0378; J0696; J1815; J7050; Q9967

== ENCOUNTER → 2020-11-28 10:50 | Outpatient (BNVA) | payer MEDICARE, MEDICAID, SELFPAY | PROVIDERS: PCP Nurse Practitioner; Visit Provider Nurse Practitioner | DX: Z79.01 Long term (current) use of anticoagulants (principal) | CPT/HCPCS: 85610 ==

== ENCOUNTER → 2020-12-01 09:30 | Outpatient (BNVA) | payer MEDICARE, MEDICAID, SELFPAY | PROVIDERS: PCP Nurse Practitioner; Visit Provider Nurse Practitioner | DX: Z79.01 Long term (current) use of anticoagulants (principal) | CPT/HCPCS: 85610 ==

== ENCOUNTER → 2020-12-05 09:10 | Outpatient (BNVA) | payer MEDICARE, MEDICAID, SELFPAY | PROVIDERS: PCP Nurse Practitioner; Visit Provider Urology | DX: N40.1 Benign prostatic hyperplasia with lower urinary tract symptoms (principal); N39.0 Urinary tract infection, site not specified | CPT/HCPCS: 81003 ==

== ENCOUNTER → 2020-12-09 13:38 | Outpatient (BNVA) | payer MEDICARE, MEDICAID, SELFPAY | PROVIDERS: PCP Nurse Practitioner; Visit Provider Nurse Practitioner | DX: Z79.01 Long term (current) use of anticoagulants (principal) | CPT/HCPCS: 85610 ==

== ENCOUNTER 2021-01-20 08:01 | Emergency (ER) | payer MEDICARE, MEDICAID, SELFPAY ==
[2021-01-20 08:02] VITALS: BP 160/84; PULSE 97; RESP 17; TEMP 36.6; O2SAT 99; BMI 30.4
[2021-01-20 08:10] VITALS: BP 160/84; PULSE 90; RESP 16; O2SAT 100
--- NOTE | 2021-01-20 08:21 | ECG_ITS ---
[facility] Test Date: 2021-01-20 Pat Name: Edgardo Price Department: Room: Gender: Male Co Teacher: : 1935 Requested By: Blanche Jang Order Number: [id number] Reading MD: LAURENCE MUNGUIA Measurements Intervals [place] Rate: 93 P: [place]: QRS: -28 QRSD: 100 T: 40 QT: 343 QTc: 428 Interpretive Statements SINUS TACHYCARDIA LOW QRS VOLTAGE IN PRECORDIAL LEADS [QRS DEFLECTION < 1.0 mV IN CHEST LEADS] POSSIBLE ANTERIOR MYOCARDIAL INFARCTION , PROBABLY OLD [30 ms Q WAVE IN V3/V4, OR R < 0.2 mV IN V4] ABNORMAL RHYTHM ECG Compared to ECG 11/18/2020 05:19:47 No significant changes Electronically Signed On 01-20-2021 19:58:53 MEDICAL CENTER DIRECTOR by LAURENCE MUNGUIA [email or web address]
--- NOTE | 2021-01-20 08:21 | XR_ITS ---
WS: [id number] Exam: XR chest 1V portable [id number] Date/Time of Exam: 01/20/2021 8:21 AM Reason For Exam: weak/dizzy No previous exams. The lungs are hyperinflated and clear. Heart size is within normal limits. Signs of previous CABG erika jordyn as well as cardiac valve replacement. No pleural effusions. The mediastinum is not widened. Gabbie onal bony structures are intact. XR/XR chest 1V portable [id number] IMPRESSION: 1. Pulmonary hyperinflation which may indicate COPD. No acute cardiopulmonary f inding. Postoperative changes.
--- NOTE | 2021-01-20 08:38 | ED_ITS ---
HPI - General Adult General: Chief complaint: Weakness Stated complaint: GENERALIZED WEAKNESS/ DIZZINESS Time Seen by Provider: 01/20/21 08:20 Source: patient and EMS Mode of arrival: EMS Limitations: no limitations History of Present Illness: HPI narrative: Patient is a 85 year old male with past medical history of CAD, mitral valve repair, hypertension, type 2 diabetes mellitus, hyperlipidemia, atrial fibrillation on chronic anticoagulation with warfarin, BPH, and Parkinson's Disease here via EMS for concerns of weakness. Patient tells me he has chronic weakness to his bilateral lower extremities but does well walking with his cane. He tells me he had a fever (subjective) yesterday evening. He reports feeling like I get my days and nights mixed up . Patient overall is a fairly poor historian. When asked he does tell me he has felt slightly short of breath over the last couple of days. He reports some mild diarrhea. He is not complaining of pain anywhere. EMS reported dizziness although patient does not complain of this to me. Patient with a history of UTI/prostatitis. He tells me he seems to be urinating normally currently. Patient denies chest pain or palpitations. Patient states he lives alone and is able to cook and care for himself. Onset (ago): day(s) Associated symptoms: Reports dyspnea; Deny chest pain, headache(s), nausea, rash, palpitations, syncope or vomiting Review of Systems Const: Reports: fever(s) (subjective); Denies: chills, body aches or fatigue Eyes: Denies: change in vision ENMT: Denies: throat pain, odynophagia, nasal discharge or nasal congestion Card: Reports: swelling of feet/ankles (chronic); Denies: chest pain, palpitations, lightheadedness, syncope or pre-syncope Resp: Reports: dyspnea; Denies: productive cough, non-productive cough, wheezing, hemoptysis or chest congestion GI: Reports: diarrhea; Denies: abdominal pain, nausea or vomiting : Denies: flank pain or dysuria Musc: Denies: neck pain, back pain, extremity pain or joint pain Skin/Breast: Denies: rash Neuro: Reports: weakness in extremities (chronic bilateral LE); Denies: headache(s), numbness in extremities or sensory changes PFS ED PFSH: Medical History Anemia Anticoagulant long-term use Atherosclerotic heart disease of [place] coronary artery without angina pectoris Atrial fibrillation Controlled type 2 diabetes mellitus with hyperglycemia, without long-term current use of insulin Dietary vitamin B12 deficiency anemia Essential (primary) hypertension Gastric reflux Iron deficiency Memory changes Mixed hyperlipidemia Parkinson's disease Urinary hesitancy Warfarin anticoagulation Surgical History H/O mitral valve repair S/P mitral valve repair Family History Mother , AT 92 Dementia Daughter Diabetes Mother , AT 92 No problems noted. Social History Alcohol intake: never Marital status: / Current occupational status: retired History of recent travel: No Physical Exam Const: COMMON NORMALS: no acute distress and alert GENERAL APPEARANCE: cooperative ORIENTATION/CONSCIOUSNESS: Yes awake, Yes oriented to person, Yes oriented to place and Yes oriented to time (doesn't know month/year; knows president) HENMT: COMMON NORMALS: normocephalic and atraumatic HEAD & SCALP: normocephalic and atraumatic Resp: COMMON NORMALS: normal respiratory effort and clear to auscultation bilaterally AUSCULTATION: clear to auscultation bilaterally Cardio: COMMON NORMALS: regular rate RATE: regular rate RHYTHM: abnormal rhythm irregularly irregular GI: COMMON NORMALS: Normal to inspection, nondistended, normoactive bowel sounds present, Soft to palpation, non-tender, No hepatosplenomegaly present and no masses PALPATION: Yes Soft to palpation and Yes No hepatosplenomegaly present Extremity: NARRATIVE EXTREMITY EXAM: bilateral LE edema that patient states is at his baseline GENERAL: Yes normal exam except as noted Neuro: AMAN COMA SCALE: document GCS findings Aman coma scale eye opening: Spontaneous Assumption coma scale verbal response: Orientated Aman coma scale motor response: Obey commands Aman coma scale total score: 15 COMMON NORMALS: CN's II-XII intact bilaterally, moves all extremities, no focal motor deficits and no sensory deficits noted SENSORIUM/ORIENTATION: Yes alert, Yes oriented to person, Yes oriented to place and Yes oriented to time (doesn't know month/year; knows president) Skin: COMMON NORMALS: no rashes or lesions noted GENERAL SKIN EXAM: no rashes or lesions noted Course Vital Signs: Vital signs: Vital Signs Temperature 97.8 F 01/20/21 08:02 Pulse Rate 90 01/20/21 08:10 Respiratory Rate 16 01/20/21 08:10 Blood Pressure 160/84 01/20/21 08:10 Pulse Oximetry 100 01/20/21 08:10 MDM - General Adult MDM Narrative: Medical decision making narrative: Patient is an 85-year-old male here via EMS for an initial complaint of weakness and dizziness however upon my assessment patient tells me he chronically has weakness to his lower legs but states I can go anywhere I want to go with my cane . Patient was able to ambulate with his cane here in the ED normally. He did not complain of any episodes of dizziness to me. Patient does have chronic atrial fibrillation. He was admitted to the hospital approximately 2 months ago for an episode of dizziness/presyncope and had a very extensive work-up completed. His CTA head/neck at the time was normal. Patient overall is a poor historian which has been documented previously. Family who later arrived during his visit confirms that he is at his mental baseline. His vital signs are stable here. Labs are overall unremarkable. He is subtherapeutic on his INR at 1.27. After speaking to patient further he tells me that he has been out of several of his medications. premises technician verified with his pharmacy that his warfarin has not been filled since November and he does not have any further refills on this. We will write him a new prescription with strict instructions to contact his PCP/have family contact PCP for follow-up appointment and INR check. Patient's chronic CHF seems to be at baseline. He is not clinically fluid overloaded. His CXR shows no acute findings. UA is clear. Rapid COVID is negative. PCR pending. At this time patient is wanting to go home and I do not see any reason for him to stay in the hospital. Family states they will have someone stay with him or check on him frequently. Discussed speaking to PCP about home health services (I think referral has already been placed for this). Strict return to ED precautions given. Lab Data: Labs: Lab Results 01/20/21 01/20/21 01/20/21 09:30 09:30 09:45 WBC RBC Hgb Hct MCV MCH MCHC RDW Plt Count MPV Neut % (Auto) Lymph % (Auto) [place] % (Auto) Eos % (Auto) Baso % (Auto) Neut # (Auto) Lymph # (Auto) [place] # (Auto) Eos # (Auto) Baso # (Auto) Nucleated RBC % (a uto) Nucleated RBCs # PT INR Sodium 139 mmol/L mmol/L (136-145) Potassium 4.2 mmol/L mmol/L (3.5-5.1) Chloride 103 mmol/L mmol/L (98-107) Carbon Dioxide 19 mmol/L L mmol/ L (22-29) Anion Gap 21.2 H (5-19) BUN 18 mg/dL mg/dL (8-23) Creatinine 0.9 mg/dL mg/dL (0.7-1.2) GFR Calculation Not Reportable Glucose 142 mg/dL H mg/dL (65-115) Calculated Osmolal ity 292 mOsm/kg mOsm/ kg (285-295) Calcium 9.0 mg/dL mg/dL (8.5-10.5) Total Bilirubin 0.5 mg/dL mg/dL (0.15-1.2) AST 18 U/L U/L (0-40) ALT < 5 U/L U/L (0-41) Alkaline Phosphata se 93 IU/L IU/L (40-130) Troponin T Baselin e 25 ng/L H ng/L (0-15) NT-Pro-B Natriuret Pep 753 pg/mL H pg/mL (0-450) Total Protein 7.2 g/dL g/dL (6.6-8.7) Albumin 4.3 g/dL g/dL (3.5-5.2) Globulin 2.9 g/dL g/dL (1.3-4.6) Urine Color Yellow (Yellow) Urine Appearance Clear (CLEAR) Urine pH 6.5 (5-7) Ur Specific Gravit y 1.010 (1.005-1.030) Urine Protein Neg (Negative) Urine Glucose (UA) Norm (Normal) Urine Ketones 1+ H (Negative) Urine Blood Neg (Negative) Urine Nitrate Negative (Negative) Urine Bilirubin Neg (Negative) Urine Urobilinogen Norm mg/dL mg/dL (Negative) Ur Leukocyte Ynes ase Negative (Negative) SARS-CoV-2 Ag (Rap id) 01/20/21 01/20/21 01/20/21 09:50 09:57 09:57 WBC 5.2 10^3/uL 10^3/ uL (4.0-10.0) RBC 3.78 10^6/uL L 10 ^6/uL (4.1-5.3) Hgb 11.2 g/dL L g/dL (11.7-16.6) Hct 35.1 % L % (42.0-52.0) MCV 92.9 fl fl (80-94) MCH 29.6 pg pg (28.0-34.0) MCHC 31.9 g/dL g/dL (30.0-36.0) RDW 14.5 % % (12.1-15.1) Plt Count 229 10^3/cmm 10^3 /cmm (130-400) MPV 9.4 fL fL (7.4-10.4) Neut % (Auto) 64.1 % % Lymph % (Auto) 28.2 % % [place] % (Auto) 5.9 % % Eos % (Auto) 1.0 % % Baso % (Auto) 0.8 % % Neut # (Auto) 3.36 10^3/uL 10^3 /uL (1.8-7.7) Lymph # (Auto) 1.5 10^3/uL 10^3/ uL (0.8-4.8) [place] # (Auto) 0.3 10^3/uL 10^3/ uL (0.2-0.9) Eos # (Auto) 0.1 10^3/uL 10^3/ uL (0.0-0.8) Baso # (Auto) 0.0 10^3/uL 10^3/ uL (0.0-0.1) Nucleated RBC % (a uto) 0 % % Nucleated RBCs # 0.0 /100WBC /100W BC PT 16.20 SECONDS H S ECONDS (12.1-14.9) INR 1.27 H (0.8-1.2) Sodium Potassium Chloride Carbon Dioxide Anion Gap BUN Creatinine GFR Calculation Glucose Calculated Osmolal ity Calcium Total Bilirubin AST ALT Alkaline Phosphata se Troponin T Baselin e NT-Pro-B Natriuret Pep Total Protein Albumin Globulin Urine Color Urine Appearance Urine pH Ur Specific Gravit y Urine Protein Urine Glucose (UA) Urine Ketones Urine Blood Urine Nitrate Urine Bilirubin Urine Urobilinogen Ur Leukocyte Ynes ase SARS-CoV-2 Ag (Rap id) Negative (Negative) Imaging Data^: CXR: Radiologist's impression: [address] [id number] ReportSigned Patient: Edgardo Price AUnit #: [id number]: [id number]#:[id number]/Sex: 85 / MADM Date: 01/20/21Loc: ERRoom/Bed:Attending Dr: Ordering Provider/Ordering MD: Blanche Jang Date of Service: 01/20/21 Procedure(s): XR chest 1V portable [id number] Accession Number(s): [id number] Report Number: [id number] WS: [id number] Exam: XR chest 1V portable [id number] Date/Time of Exam: 01/20/2021 8:21 AM Reason For Exam: weak/dizzy No previous exams. The lungs are hyperinflated and clear. Heart size is within normal limits. Signs of previous CABG surgery as well as cardiac valve replacement. No pleural effusions. The mediastinum is not widened. Regional bony structures are intact. XR/XR chest 1V portable [id number] IMPRESSION: 1. Pulmonary hyperinflation which may indicate COPD. No acute cardiopulmonary finding. Postoperative changes. Dictated By:Deven Rankin By:Deven Rankin Date/Time:01/20/21 0859DD/ 0855 Discharge Plan Discharge Patient Disposition: Home Clinical Impression: Subtherapeutic international normalized ratio (INR), Generalized weakness Condition: Stable Prescriptions: Continued warfarin 2 mg tablet 4 mg PO DAILY Qty: 60 RF: 0 No Action ferrous sulfate 325 mg (65 mg iron) tablet 325 mg PO DAILY Qty: 30 RF: 2 metformin 500 mg tablet extended release 24 hr 500 mg PO BID Qty: 60 RF: 2 potassium chloride 10 mEq tablet extended release 10 meq PO DAILY Qty: 30 RF: 2 pravastatin 40 mg tablet 40 mg PO DAILY Qty: 90 RF: 2 nitroglycerin 0.4 mg tablet, sublingual 0.4 mg SUBLINGUAL Q5M PRN (Reason: chest pain) Qty: 25 RF: 0 carbidopa-levodopa 50-200 mg tablet extended release 1 tab PO BID RF: 0 Flomax 0.4 mg capsule 0.4 mg PO BID RF: 0 cyanocobalamin (vitamin B-12) 1,000 mcg/mL solution 1,000 mcg IM Q30D RF: 0 enalapril maleate 5 mg tablet 5 mg PO DAILY Qty: 60 RF: 2 furosemide 20 mg tablet 20 mg PO EVERY OTHER DAY Qty: 30 RF: 2 Discharge Orders: Discharge ED (Routine); Ordered 01/20/21 Ordered By: Blanche Jang Referrals: Blaise Amato FNP-C [Primary Care Provider] - Activity Restrictions/Additional Instructions: TO FAMILY: Her pharmacy services representative verified that patient has not filled his warfarin (blood thinner) prescription since November. He does not have any further refills waiting for him at the pharmacy. I have written him a new prescription so he can fill and get started back on this. He needs to contact his primary care provider Blaise Amato as soon as possible so he can have his INR rechecked this week. You can also speak to her in regards to home health services. As we discussed I recommend having somebody stay with patient over the next 24 to 48 hours to continue to monitor him. Patient needs to return to the emergency department for altered mental status, fevers, severe vomiting or diarrhea, severe weakness, inability to care for himself at home, or any other concerns you may have. Coding Level of Care Code ED Cosmetics Supervisor for Maddig Fwd Exam Comprehensive
[2021-01-20 09:53] LABS: Add Urine Microscopic? NO; Charge for UA Resulting for Rev
[2021-01-20 10:04] LABS: Troponin(5th) Baseline 25 ng/L (0-15)
[2021-01-20 10:04] LABS: Bilirubin Urine Neg (Negative); Blood Urine Neg (Negative); Glucose Urine UA Norm (Normal); Ketones Urine 1+ (Negative); Leukocyte Esterase Urine Negative (Negative); Nitrate Urine Negative (Negative); Protein Urine Neg (Negative); Urine Appearance Clear (CLEAR); Urine Color Yellow (Yellow); Urobilinogen Urine Norm (Negative); pH Urine 6.5 (5-7)
[2021-01-20 10:05] LABS: Basophils % 0.8 %; Eosinophils # 0.1 10^3/uL (0.0-0.8); Hematocrit 35.1 % (42.0-52.0); Hemoglobin 11.2 g/dL (11.7-16.6); Lymphocytes # 1.5 10^3/uL (0.8-4.8); Lymphocytes % 28.2 %; Mean Corpuscular HGB Conc 31.9 g/dL (30.0-36.0); Mean Corpuscular Hemoglobin 29.6 pg (28.0-34.0); Mean Corpuscular Volume 92.9 fl (80-94); Mean Platelet Volume 9.4 fL (7.4-10.4); Monocytes # 0.3 10^3/uL (0.2-0.9); Monocytes % 5.9 %; Neutrophils # 3.36 10^3/uL (1.8-7.7); Neutrophils % 64.1 %; Nucleated Red Blood Cells % 0 %; Platelet Count 229 10^3/cmm (130-400); Red Blood Count 3.78 10^6/uL (4.1-5.3); Red Cell Distribution Width 14.5 % (12.1-15.1); White Blood Count 5.2 10^3/uL (4.0-10.0)
[2021-01-20 10:09] LABS: Alanine Aminotransferase < 5 U/L (0-41); Albumin Level 4.3 g/dL (3.5-5.2); Alkaline Phosphatase 93 IU/L (40-130); Blood Urea Nitrogen 18 mg/dL (8-23); Carbon Dioxide 19 mmol/L (22-29); Chloride 103 mmol/L (98-107); Globulin 2.9 g/dL (1.3-4.6); Glucose 142 mg/dL (65-115); NT Pro B Type Natriuretic Pept 753 pg/mL (0-450); Osmolality Calculated 292 mOsm/kg (285-295); Sodium 139 mmol/L (136-145); Total Bilirubin 0.5 mg/dL (0.15-1.2); Total Protein 7.2 g/dL (6.6-8.7)
[2021-01-20 10:13] LABS: Anion Gap 21.2 (5-19); Aspartate Amino Transferase 18 U/L (0-40); Potassium 4.2 mmol/L (3.5-5.1)
[2021-01-20 10:14] LABS: SARS Covid-2 Antigen Negative (Negative)
[2021-01-20 10:14] LABS: INR 1.27 (0.8-1.2)
--- NOTE | 2021-01-20 10:21 | ECG_ITS ---
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: : 1935 Requested By: Blanche Jang Order Number: [id number] Reading MD: LAURENCE MUNGUIA Measurements Intervals [place] Rate: 90 P: [place]: QRS: -1 QRSD: 93 T: 45 QT: 346 QTc: 423 Interpretive Statements ATRIAL FIBRILLATION LOW QRS VOLTAGE IN PRECORDIAL LEADS [QRS DEFLECTION < 1.0 mV IN CHEST LEADS] MINIMAL ST DEPRESSION [0.025+ mV ST DEPRESSION] ABNORMAL RHYTHM ECG Compared to ECG 01/20/2021 08:42:05 ST (T wave) deviation now present Atrial flutter no longer present Myocardial infarct finding no longer present Electronically Signed On 01-20-2021 20:09:36 FOOD PRODUCTION ASSOCIATE by LAURENCE MUNGUIA [id number]
[2021-01-20 11:52] LABS: Troponin 5 2HR 22.68 ng/L (0-15)
[2021-01-20 12:01] LABS: Troponin 5 2HR Delta -2.32 ABS# (0-10)
[2021-01-21 15:14] LABS: Coronavirus Test Green County Not Detected
--- NOTE | 2021-01-21 16:13 | PC.NURSE ---
Patient notified of negative COVID-19 test result
== END 2021-01-20 11:24 | disposition home or self-care (01) ==
PROVIDERS: Emergency Provider Physician Assistant; PCP Nurse Practitioner
DX: R53.1 Weakness (principal); Z79.84 Long term (current) use of oral hypoglycemic drugs; I25.10 Atherosclerotic heart disease of native coronary artery without angina pectoris; E11.9 Type 2 diabetes mellitus without complications; I10 Essential (primary) hypertension; E78.2 Mixed hyperlipidemia; G20 Parkinson's disease; Z20.822 Contact with and (suspected) exposure to COVID-19
CPT/HCPCS: 36415; 71045; 80053; 81003; 83880; 84484; 85025; 85610; 87426; 87635; 93005; 99283

== ENCOUNTER → 2021-02-23 11:26 | Outpatient (BNVA) | payer MEDICARE, MEDICAID, SELFPAY | PROVIDERS: PCP Nurse Practitioner; Visit Provider Nurse Practitioner | DX: E11.65 Type 2 diabetes mellitus with hyperglycemia (principal); Z79.01 Long term (current) use of anticoagulants | CPT/HCPCS: 80048; 81000; 83036; 85610 ==

== ENCOUNTER → 2021-04-21 08:07 | Outpatient (BNVA) | payer MEDICARE, MEDICAID, SELFPAY | PROVIDERS: PCP Nurse Practitioner; Visit Provider Nurse Practitioner | DX: E11.65 Type 2 diabetes mellitus with hyperglycemia (principal); I48.0 Paroxysmal atrial fibrillation | CPT/HCPCS: 81000; 85610 ==

== ENCOUNTER → 2021-06-01 08:28 | Outpatient (BNVA) | payer MEDICARE, MEDICAID, SELFPAY | PROVIDERS: PCP Nurse Practitioner; Visit Provider Nurse Practitioner | DX: I48.0 Paroxysmal atrial fibrillation (principal); E11.65 Type 2 diabetes mellitus with hyperglycemia | CPT/HCPCS: 80053; 80061; 81000; 83036; 85025; 85610 ==

== ENCOUNTER → 2021-07-01 10:41 | Outpatient (BNVA) | payer MEDICARE, MEDICAID, SELFPAY | PROVIDERS: PCP Nurse Practitioner; Visit Provider Nurse Practitioner | DX: I48.0 Paroxysmal atrial fibrillation (principal); Z79.01 Long term (current) use of anticoagulants | CPT/HCPCS: 85610 ==

== ENCOUNTER → 2021-08-10 08:44 | Outpatient (BNVA) | payer MEDICARE, MEDICAID, SELFPAY | PROVIDERS: PCP Nurse Practitioner; Visit Provider Nurse Practitioner Family | DX: I48.0 Paroxysmal atrial fibrillation (principal); Z79.01 Long term (current) use of anticoagulants; R07.9 Chest pain, unspecified; I10 Essential (primary) hypertension | CPT/HCPCS: 80053; 84484; 85025; 85610 ==

== ENCOUNTER 2021-09-18 20:08 | Inpatient (IN) | payer MEDICARE, MEDICAID, SELFPAY ==
[2021-09-18 20:17] VITALS: BP 170/92; PULSE 105; RESP 24; TEMP 36.6; O2SAT 97; BMI 23.3
--- NOTE | 2021-09-18 20:20 | XRR_ITS ---
PROCEDURE INFORMATION: Exam: XR Chest Exam date and time: 09/18/2021 8:36 PM Age: 86 years old Clinical indication: Injury or trauma; Fall; Blunt trauma (contusions or hematomas) TECHNIQUE: Imaging protocol: Radiologic exam of the chest. Views: 1 view. Total images: 892 COMPARISON: CR XR chest 1V portable [id number] 01/20/2021 8:46 AM FINDINGS: Lungs: No acute focal pulmonary opacities are detected. Pleural spaces: Unremarkable. No pleural effusion. No pneumothorax. Heart/Mediastinum: Prior coronary artery bypass grafting. Heart size is stable when compared to the prior exam. Bones/joints: Osseous structures are unchanged from the prior exam. XR/XR chest 1V portable [id number] IMPRESSION: No acute focal pulmonary opacities are detected.
--- NOTE | 2021-09-18 20:22 | ECG_ITS ---
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 Measurements Intervals [place] Rate: 104 P: [place]: QRS: -43 QRSD: 98 T: 17 QT: 349 QTc: 459 Interpretive Statements ATRIAL FLUTTER/TACHYCARDIA WITH RAPID VENTRICULAR RESPONSE LEFT AXIS DEVIATION [QRS AXIS < -30] Compared to ECG 01/20/2021 10:56:54 Left-axis deviation now present Atrial fibrillation no longer present ST (T wave) deviation no longer present Electronically Signed On 09-19-2021 18:53:08 CDT by Trice Ballard M.D. [id number]
--- NOTE | 2021-09-18 20:33 | W.ED.AMS ---
HPI - Altered Mental Status General: Chief Complaint: Altered Mental Status Stated Complaint: AMS Time Seen by Provider: 09/18/21 20:13 History of Present Illness: 86-year-old male presenting today with altered mental status. Patient with baseline altered mental status. Patient lives at home. Was noted to have fallen down. Was found on the ground. Laying on the carpet. He is uncertain of how he got there 5. He is unable to provide any history about the fall itself. He denies pain or any other symptoms on review of systems. Review of Systems General: Reports: 10 or more systems reviewed and unremarkable except in HPI and below PFSH ED PFSH: Medical History Anemia Anticoagulant long-term use Atherosclerotic heart disease of [place] coronary artery without angina pectoris Atrial fibrillation Controlled type 2 diabetes mellitus with hyperglycemia, without long-term current use of insulin Dietary vitamin B12 deficiency anemia Essential (primary) hypertension Gastric reflux Iron deficiency Memory changes Mixed hyperlipidemia Parkinson's disease Urinary hesitancy Warfarin anticoagulation Surgical History H/O mitral valve repair Family History Mother , AT 92 Dementia Daughter Diabetes Mother , AT 92 No problems noted. Social History Smoking and tobacco status: never smoked Second hand smoke exposure: No Smoking risk assessment/counseling performed?: No Alcohol intake: never Desire information about alcohol rehabilitation?: No Counseling given: No Desire information about substance/drug rehabilitation?: No Counseling given: No Adopted: No Caregiver/support person: No Lives independently: Yes Household members: none Housing: House Marital status: / service: No Current occupational status: retired Current occupational exposures/hazards: No History of recent travel: No Current gender identity: Male Physical Exam Const: COMMON NORMALS: no acute distress, average body habitus and alert; negative for patient oriented x3 EXAM LIMITATIONS: altered mental status GENERAL APPEARANCE: cooperative and comfortable ORIENTATION/CONSCIOUSNESS: Yes oriented to person HENMT: COMMON NORMALS: normocephalic and atraumatic HEAD & SCALP: normocephalic and atraumatic Eye: COMMON NORMALS: Equal, round and reactive pupils present, EOMs intact bilaterally and conjunctivae normal CONJUNCTIVA: Yes conjunctivae normal PUPIL: Yes Equal, round and reactive pupils present Neck/C-Spine: COMMON NORMALS: full ROM, no lymphadenopathy, supple and no JVD Chest: OTHER: Patient with bruising noted to right chest wall. Resp: COMMON NORMALS: normal respiratory effort and No retractions Cardio: COMMON NORMALS: no JVD; negative for regular rate and negative for regular rhythm RATE: abnormal rate RHYTHM: abnormal rhythm GI: COMMON NORMALS: Normal to inspection, nondistended, normoactive bowel sounds present, Soft to palpation and non-tender PALPATION: Yes Soft to palpation : COMMON NORMALS: Yes no CVA tenderness BLADDER/KIDNEY EXAM: Yes no CVA tenderness Back/Pelvis: COMMON NORMALS: no CVA tenderness and thoracic and lumbar spine normal to inspection Extremity: COMMON NORMALS: full ROM; negative for normal to inspection NARRATIVE EXTREMITY EXAM: Erythema noted to right upper extremity. Minor abrasion noted to left upper extremity Neuro: COMMON NORMALS: CN's II-XII intact bilaterally, moves all extremities, no focal motor deficits and no sensory deficits noted; negative for patient oriented x3 SENSORIUM/ORIENTATION: Yes alert and Yes oriented to person Psych: COMMON NORMALS: mental status grossly normal, Normal thought process present, cooperative, normal affect and speech normal SPEECH: Yes normal speech THOUGHT PROCESS: Normal thought process present Skin: COMMON NORMALS: no rashes or lesions noted GENERAL SKIN EXAM: no rashes or lesions noted Course Vital Signs: Vital signs: Vital Signs Temperature 98 F 09/18/21 20:17 Pulse Rate 105 H 09/18/21 20:17 Respiratory Rate 24 H 09/18/21 20:17 Blood Pressure 170/92 09/18/21 20:17 Pulse Oximetry 97 09/18/21 20:17 Oxygen Delivery Me thod 09/18/21 20:17 MDM - Altered Mental Status Medical Decision Making 86-year-old male with baseline dementia presenting after ground-level fall. Multiple superficial abrasions. Patient CK significantly elevated. Suggestive of prolonged downtime. Patient bolused normal saline for renal protection. EKG with evidence of atrial flutter with RVR. Patient with prior history of similar. CT head, chest x-ray and forearm x-ray without evidence of acute abnormality. Due to need for aggressive oral and IV rehydration. Will admit to the hospital for rhabdomyolysis. Hospitalist consulted for admission. Differential Diagnosis Likely altered mental status, delirium, dementia, hypoglycemia and hyponatremia Medical Records I reviewed the patient's medical records. Lab Data I reviewed the patient's lab results. : 09/18/21 20:37 09/18/21 20:37 Radiology Impressions Chest X-Ray 09/18/21 20:20 IMPRESSION: No acute focal pulmonary opacities are detected. Head CT 09/18/21 20:34 IMPRESSION: No acute intracranial abnormality. Forearm X-Ray 09/18/21 20:37 IMPRESSION: No acute osseous pathology. Laboratory Results WBC 12.1 10^3/uL (4.0-10.0) H 09/18/21 20:37 RBC 4.25 10^6/uL (4.1-5.3) 09/18/21 20:37 Hgb 12.9 g/dL (11.7-16.6) 09/18/21 20:37 Hct 39.9 % (42.0-52.0) L 09/18/21 20:37 MCV 93.9 fl (80-94) 09/18/21 20:37 MCH 30.4 pg (28.0-34.0) 09/18/21 20:37 MCHC 32.3 g/dL (30.0-36.0) 09/18/21 20:37 RDW 12.7 % (12.1-15.1) 09/18/21 20:37 Plt Count 208 10^3/cmm (130-400) 09/18/21 20:37 MPV 9.0 fL (7.4-10.4) 09/18/21 20:37 Neut % (Auto) 90.7 % 09/18/21 20:37 Lymph % (Auto) 4.4 % 09/18/21 20:37 [place] % (Auto) 4.0 % 09/18/21 20:37 Eos % (Auto) 0.0 % 09/18/21 20:37 Baso % (Auto) 0.2 % 09/18/21 20:37 Neut # (Auto) 10.94 10^3/uL (1.8-7.7) H 09/18/21 20:37 Lymph # (Auto) 0.5 10^3/uL (0.8-4.8) L 09/18/21 20:37 [place] # (Auto) 0.5 10^3/uL (0.2-0.9) 09/18/21 20:37 Eos # (Auto) 0.0 10^3/uL (0.0-0.8) 09/18/21 20:37 Baso # (Auto) 0.0 10^3/uL (0.0-0.1) 09/18/21 20:37 Nucleated RBC % (auto) 0 % 09/18/21 20:37 Nucleated RBCs # 0.0 /100WBC 09/18/21 20:37 Sodium 141 mmol/L (136-145) 09/18/21 20:37 Potassium 4.0 mmol/L (3.5-5.1) 09/18/21 20:37 Chloride 101 mmol/L (98-107) 09/18/21 20:37 Carbon Dioxide 22 mmol/L (22-29) 09/18/21 20:37 Anion Gap 22.0 (5-19) H 09/18/21 20:37 BUN 30 mg/dL (8-23) H 09/18/21 20:37 Creatinine 1.2 mg/dL (0.7-1.2) 09/18/21 20:37 GFR Calculation Not Reportable 09/18/21 20:37 Glucose 212 mg/dL (65-115) H 09/18/21 20:37 Calculated Osmolality 304 mOsm/kg (285-295) H 09/18/21 20:37 Calcium 9.4 mg/dL (8.5-10.5) 09/18/21 20:37 Total Bilirubin 1.5 mg/dL (0.15-1.2) H 09/18/21 20:37 AST 41 U/L (0-40) H 09/18/21 20:37 ALT 14 U/L (0-41) 09/18/21 20:37 Alkaline Phosphatase 102 IU/L (40-130) 09/18/21 20:37 Creatine Kinase 1527 U/L (39-308) H* 09/18/21 20:37 Troponin T Baseline 42 ng/L (0-15) H 09/18/21 20:37 Total Protein 7.5 g/dL (6.6-8.7) 09/18/21 20:37 Albumin 4.1 g/dL (3.5-5.2) 09/18/21 20:37 Globulin 3.4 g/dL (1.3-4.6) 09/18/21 20:37 Discharge Plan Discharge Patient Disposition: Admitted As Inpatient Clinical Impression: Rhabdomyolysis, Acute dehydration, Atrial fibrillation and flutter Condition: Stable Coding Level of Care Code ED Company Driver for Mary Fwd Exam Comprehensive
--- NOTE | 2021-09-18 20:34 | CTR_ITS ---
PROCEDURE INFORMATION: Exam: CT Head Without Contrast Exam date and time: 09/18/2021 9:15 PM Age: 86 years old Clinical indication: Injury or trauma; Blunt trauma (contusions or hematomas); Patient HX: Patient found on the floor at home. Patient does not remember the fall. Denies any current complaints. History of parkinson's; Additional info: Trauma/ AMS TECHNIQUE: Imaging protocol: Computed tomography of the head without contrast. Total images: 250 Radiation optimization: All CT scans at this facility use at least one of these dose optimization techniques: automated exposure control; mA and/or kV adjustment per patient size (includes targeted exams where dose is matched to clinical indication); or iterative reconstruction. COMPARISON: CT head wo con* [id number] 11/18/2020 12:23 AM RADIATION DOSE METRICS: Total DLP (mGy-cm): 1087.68 FINDINGS: Brain: Global brain atrophy and chronic white matter ischemic changes are present. Cerebral ventricles: Ventricles are appropriate in size for degree of atrophy. Paranasal sinuses: Visualized sinuses are unremarkable. No fluid levels. Mastoid air cells: Visualized mastoid air cells are well aerated. Bones/joints: Unremarkable. No acute fracture. Soft tissues: Trochlear tendon calcification is noted CT/CT head wo con* [id number] IMPRESSION: No acute intracranial abnormality.
--- NOTE | 2021-09-18 20:37 | XRR_ITS ---
PROCEDURE INFORMATION: Exam: XR Right Forearm Exam date and time: 09/18/2021 8:42 PM Age: 86 years old Clinical indication: Injury or trauma; Fall; Blunt trauma (contusions or hematomas); Arm, lower; Right TECHNIQUE: Imaging protocol: Radiologic exam of the Right forearm. Views: 2 views. Total images: 2 COMPARISON: No relevant prior studies available. FINDINGS: Bones/joints: No acute fracture nor subluxation. No osseous erosion nor periosteal reaction. Soft tissues: Normal. Vasculature: Moderate atherosclerotic disease is evident. XR/XR forearm RT 2V [id number] IMPRESSION: No acute osseous pathology.
[2021-09-18 20:42] LABS: Basophils % 0.2 %; Hematocrit 39.9 % (42.0-52.0); Hemoglobin 12.9 g/dL (11.7-16.6); Lymphocytes # 0.5 10^3/uL (0.8-4.8); Lymphocytes % 4.4 %; Mean Corpuscular HGB Conc 32.3 g/dL (30.0-36.0); Mean Corpuscular Hemoglobin 30.4 pg (28.0-34.0); Mean Corpuscular Volume 93.9 fl (80-94); Monocytes # 0.5 10^3/uL (0.2-0.9); Neutrophils # 10.94 10^3/uL (1.8-7.7); Neutrophils % 90.7 %; Nucleated Red Blood Cells % 0 %; Platelet Count 208 10^3/cmm (130-400); Red Blood Count 4.25 10^6/uL (4.1-5.3); Red Cell Distribution Width 12.7 % (12.1-15.1); White Blood Count 12.1 10^3/uL (4.0-10.0)
[2021-09-18 21:07] LABS: Troponin(5th) Baseline 42 ng/L (0-15)
[2021-09-18 21:09] LABS: Alanine Aminotransferase 14 U/L (0-41); Albumin Level 4.1 g/dL (3.5-5.2); Alkaline Phosphatase 102 IU/L (40-130); Aspartate Amino Transferase 41 U/L (0-40); Blood Urea Nitrogen 30 mg/dL (8-23); Calcium 9.4 mg/dL (8.5-10.5); Carbon Dioxide 22 mmol/L (22-29); Chloride 101 mmol/L (98-107); Globulin 3.4 g/dL (1.3-4.6); Glucose 212 mg/dL (65-115); Osmolality Calculated 304 mOsm/kg (285-295); Sodium 141 mmol/L (136-145); Total Bilirubin 1.5 mg/dL (0.15-1.2); Total Protein 7.5 g/dL (6.6-8.7)
[2021-09-18 21:13] LABS: Creatine Phosphokinase 1527 U/L (39-308)
--- NOTE | 2021-09-18 22:05 | PC.NURSE ---
Attempted catheterization for urine analysis, unsuccessfully due to stricture of urethra. Urethral opening looks to be completely closed , however family states that he does urinate and is incontinent of bladder.
--- NOTE | 2021-09-18 22:11 | PM.HP ---
Providers/Chief Complaint Primary Care Provider: Blaise Amato, YAN Chief Complaint: AMS History of Present Illness Edgardo Price is a 86 year old male with past medical history of anemia, chronically on anticoagulation, atrial fibrillation, type 2 diabetes mellitus, B12 deficiency, hypertension, Parkinson's disease, memory changes, CABG 12 to 15 years ago, mitral valve repair, hypertension presented to the hospital today for altered mental status. At baseline also he is altered and lives at home alone. He is able to prepare his meals but does not follow any specific diet. Patient's daughter states that he eats a lot of ice cream sandwiches. He fell down and was found on the ground laying on the carpet. He is unsure how he got there. Patient does have multiple superficial abrasions. CK significantly elevated. Unable to provide much details about himself. He is a poor historian. Family has been trying to get him into an assisted living facility. They state once patient gets discharged from here that we will be taking him after a short stay at home with patient's son. They state he uses a walker and a cane to get around. He wears dentures normally and wears glasses. They also state that his medications are laid out for him but they are not sure that if he has been taking them on time and if he has been taking them as directed. Patient's family does check up on him from time to time. Patient's primary care physician is Blaise Aamto. At this time patient is comfortable and not complaining of any issues. He is resting comfortably in bed. ED course BP 1 7092 heart rate 24, pulse 105, temperature 98, pulse ox 97% on room air. EKG showed A. fib with RVR. CT head, chest x-ray, forearm x-ray without evidence of acute abnormality. WBC 12.1, AST 41, creatinine kinase 1527, baseline troponin 42. Troponin delta negative. Medications/Allergies Home Medications Medication Instructions Recorded Confirmed Last Taken Type nitroglycerin 0.4 mg sublingual 0.4 mg sublingual Q5M PRN chest 10/28/20 08/10/21 Unknown Rx tablet pain #25 tabs cyanocobalamin (vitamin B-12) 1,000 mcg IM Q30D 11/18/20 08/10/21 Unknown History 1,000 mcg/mL injection solution carbidopa ER 50 mg-levodopa 200 mg 1 tab PO BID #60 tabs 04/21/21 08/10/21 Unknown Rx tablet,extended release enalapril maleate 5 mg tablet 5 mg PO BID #60 tabs 04/21/21 08/10/21 Unknown Rx ferrous sulfate 325 mg (65 mg 325 mg PO DAILY #30 tabs 04/21/21 08/10/21 Unknown Rx iron) tablet furosemide 20 mg tablet 20 mg PO DAILY #30 tabs 04/21/21 08/10/21 Unknown Rx metformin 500 mg tablet,extended 500 mg PO BID #60 tabs 04/21/21 08/10/21 Unknown Rx release 24 hr potassium chloride 10 mEq 10 meq PO DAILY #30 tabs 04/21/21 08/10/21 Unknown Rx tablet,extended release pravastatin 40 mg tablet 40 mg PO DAILY #90 tabs 04/21/21 08/10/21 Unknown Rx tamsulosin 0.4 mg capsule (Flomax) 0.4 mg PO BID #60 caps 04/21/21 08/10/21 Unknown Rx metoprolol succinate 25 mg 25 mg PO DAILY #30 tabs 08/14/21 Unknown Rx tablet,extended release 24 hr (Toprol XL) warfarin 2 mg tablet See Rx Instructions PO DAILY #65 08/14/21 Unknown Rx tabs Allergies Allergy/AdvReac Type Severity Reaction Status Date / Time aspirin Allergy ADR-Gastrointestinal Verified 08/10/21 08:53 Upset PFSH Acute PFSH: Medical History Anemia Anticoagulant long-term use Atherosclerotic heart disease of [place] coronary artery without angina pectoris Atrial fibrillation Controlled type 2 diabetes mellitus with hyperglycemia, without long-term current use of insulin Dietary vitamin B12 deficiency anemia Essential (primary) hypertension Gastric reflux Iron deficiency Memory changes Mixed hyperlipidemia Parkinson's disease Urinary hesitancy Warfarin anticoagulation Surgical History H/O mitral valve repair Family History Mother , AT 92 Dementia Daughter Diabetes Mother , AT 92 No problems noted. Social History Smoking and tobacco status: never smoked Second hand smoke exposure: No Smoking risk assessment/counseling performed?: No Alcohol intake: never Desire information about alcohol rehabilitation?: No Counseling given: No Desire information about substance/drug rehabilitation?: No Counseling given: No Adopted: No Caregiver/support person: No Lives independently: Yes Household members: none Housing: House Marital status: / service: No Current occupational status: retired Current occupational exposures/hazards: No History of recent travel: No Current gender identity: Male Vitals/I&O/Wt Last Vital Signs Temp 98 F 09/18/21 20:17 Pulse 105 H 09/18/21 20:17 Resp 24 H 09/18/21 20:17 BP 170/92 09/18/21 20:17 Pulse Ox 97 09/18/21 20:17 O2 Del Method 09/18/21 20:17 Weight last 48 hrs Weight 63.503 kg Physical Exam Narrative: General: Alert but oriented only to self, patient seen laying in bed appearing comfortable at this time, no acute distress. HEENT: Normocephalic, atraumatic, EOMI, breathing normally Cardio: Irregularly irregular, normal S1-S2, Respiratory: Clear to auscultation with some rhonchi at right base. GI: Abdomen soft, nontender, nondistended, bowel sounds + Extremities: No lower extremity edema noted. Data : 09/18/21 20:37 09/18/21 20:37 A&P Assessment and plan (1) Rhabdomyolysis: Status: Acute (2) Acute dehydration: Status: Acute (3) Atrial fibrillation and flutter: Status: Acute (4) Essential (primary) hypertension: Status: Chronic (5) Controlled type 2 diabetes mellitus with hyperglycemia, without long-term current use of insulin: Status: Chronic (6) Parkinson's disease: Status: Chronic (7) Dietary vitamin B12 deficiency anemia: Status: Acute (8) Mixed hyperlipidemia: Status: Chronic (9) Iron deficiency: Status: Chronic (10) History of coronary artery bypass graft: Status: Acute (11) Coronary artery disease: Status: Acute Plan #Fall #Aspiration pneumonia? #Rhabdomyolysis, dehydration #A. fib with RVR, chronically on warfarin #Parkinson's disease #Type 2 diabetes mellitus without use of insulin #Hypertension #Leukocytosis -We will place on telemetry overnight ? Continue IV fluids ? Continue Lopressor 25 twice daily pravastatin, enalapril 5 twice daily, ? Hold Lasix at this time. Hold metformin. - Continue vitamin B12 ? We will need to confirm patient's home medications in a.m from the pharmacy. ? Leukocytosis probably reactive versus infection. Will check urinalysis, urine culture. Unsure if he aspirated. He is afebrile right now. We will continue to monitor for any fever. There are crackles at right base. - Procal 0.57. Will treat with unasyn for aspiration pneumonia - Check speech swallow eval Full code DVT prophylaxis: On warfarin Attestations Medical Necessity Statement*: Will cross greater than 2 midnights for management of rhabdomyolysis, fall, dehydration Coding Level of Care Code Acute Production Dispatcher for [facility] Diagnoses Rhabdomyolysis M62.82 Acute dehydration E86.0 Atrial fibrillation and flutter I48.91; I48.92 Essential (primary) hypertension I10 Controlled type 2 diabetes mellitus with hyperglycemia, without long-term current use of insulin E11.65 Parkinson's disease G20 Dietary vitamin B12 deficiency anemia D51.8 Mixed hyperlipidemia E78.2 Iron deficiency E61.1 History of coronary artery bypass graft Z95.1 Coronary artery disease I25.10
--- NOTE | 2021-09-18 22:22 | ECG_ITS ---
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 Measurements Intervals [place] Rate: 99 P: AR: QRS: -35 QRSD: 103 T: 31 QT: 347 QTc: 446 Interpretive Statements Atrial fibrillation with a controlled ventricular response rate. Occasional PVCs. LEFT AXIS DEVIATION [QRS AXIS < -30] NONSPECIFIC T-WAVE ABNORMALITY Compared to ECG 09/18/2021 20:25:35 Ventricular premature complex(es) now present Aberrant conduction of supraventricular beat(s) now present T-wave abnormality now present Electronically Signed On 09-19-2021 19:23:04 CDT by Trice Ballard M.D. [id number]
[2021-09-19] VITALS (10 sets, daily range): BP systolic 110–155; BP diastolic 63–84; PULSE 84–111; RESP 14–23; TEMP 36.4–37; O2SAT 95–99
[2021-09-19 00:05] LABS: INR 1.15 (0.8-1.2)
[2021-09-19] MEDS: sodium chloride 0.9% 1,000 ML 999 ML IV (00:10)
[2021-09-19 00:27] LABS: Troponin 5 2HR 45.66 ng/L (0-15)
[2021-09-19 00:31] LABS: Procalcitonin 0.57 ng/mL (0-0.5)
[2021-09-19 00:36] LABS: Troponin 5 2HR Delta 3.66 ABS# (0-10)
[2021-09-19] MEDS: heparin 5,000 unit/mL INJ 1 mL 5000 UNIT SUBCUT ×3 (00:58→16:21)
[2021-09-19] MEDS: sodium chloride 0.9% 1,000 ML 75 ML IV ×2 (00:58→13:55)
[2021-09-19 01:05] LABS: Chol HDL Ratio 2.63 mg/dL (1.0-5.00); Cholesterol 197 mg/dL (0-200); HDL Cholesterol 75 mg/dL (60-100); LDL Cholesterol Calculated 111 mg/dL (50-129); LDL HDL Ratio 1.48 RATIO (0.00-3.22); Thyroid Stimulating Hormone 2.18 uIU/mL (0.27-4.20); Triglycerides 55 mg/dL (0-150)
[2021-09-19 01:05] LABS: Estmated Average Glucose 160; Hemoglobin A1C 7.2 % (4.0-6.0)
[2021-09-19 04:19] LABS: Basophils % 0.3 %; Hematocrit 35.1 % (42.0-52.0); Lymphocytes # 1.1 10^3/uL (0.8-4.8); Lymphocytes % 11.4 %; Mean Corpuscular HGB Conc 31.3 g/dL (30.0-36.0); Mean Corpuscular Hemoglobin 30.6 pg (28.0-34.0); Mean Corpuscular Volume 97.8 fl (80-94); Mean Platelet Volume 9.9 fL (7.4-10.4); Monocytes # 0.7 10^3/uL (0.2-0.9); Monocytes % 7.1 %; Neutrophils % 80.8 %; Nucleated Red Blood Cells % 0 %; Platelet Count 162 10^3/cmm (130-400); Red Blood Count 3.59 10^6/uL (4.1-5.3); Red Cell Distribution Width 12.8 % (12.1-15.1); White Blood Count 9.7 10^3/uL (4.0-10.0)
[2021-09-19 04:28] LABS: INR 1.16 (0.8-1.2)
[2021-09-19 04:44] LABS: Troponin 5 6HR 46.75 ng/L (0-15)
[2021-09-19 04:49] LABS: Troponin 5 6HR Delta 4.75 ng/L (0-12)
[2021-09-19 04:51] LABS: Alanine Aminotransferase 14 U/L (0-41); Albumin Level 3.6 g/dL (3.5-5.2); Alkaline Phosphatase 80 IU/L (40-130); Blood Urea Nitrogen 29 mg/dL (8-23); Calcium 8.6 mg/dL (8.5-10.5); Carbon Dioxide 19 mmol/L (22-29); Chloride 105 mmol/L (98-107); Globulin 2.9 g/dL (1.3-4.6); Glucose 153 mg/dL (65-115); Magnesium 1.9 mg/dL (1.7-2.3); Osmolality Calculated 301 mOsm/kg (285-295); Phosphorus 3.2 mg/dL (2.5-4.5); Sodium 141 mmol/L (136-145); Total Bilirubin 1.2 mg/dL (0.15-1.2); Total Protein 6.5 g/dL (6.6-8.7)
[2021-09-19 05:09] LABS: Anion Gap 20.8 (5-19); Aspartate Amino Transferase 50 U/L (0-40); Potassium 3.8 mmol/L (3.5-5.1)
--- NOTE | 2021-09-19 06:21 | ECG_ITS ---
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 Measurements Intervals [place] Rate: 82 P: ND: QRS: -38 QRSD: 102 T: -30 QT: 355 QTc: 417 Interpretive Statements ATRIAL FIBRILLATION LEFT AXIS DEVIATION [QRS AXIS < -30] NONSPECIFIC T-WAVE ABNORMALITY Compared to ECG 09/18/2021 22:25:58 Atrial flutter no longer present Ventricular premature complex(es) no longer present Aberrant conduction of supraventricular beat(s) no longer present T-wave abnormality still present Electronically Signed On 09-19-2021 19:23:52 CDT by Trice Ballard M.D. [id number]
[2021-09-19] MEDS: ferrous sulfate EC 325 mg Tablet PO (08:15)
[2021-09-19] MEDS: atorvastatin 40 mg Tablet 20 MG PO (08:15)
[2021-09-19] MEDS: carbidopa-levodopa ER 50-200mg Tablet 1 EACH PO ×2 (08:17→17:08)
[2021-09-19] MEDS: tamsulosin 0.4 mg Capsule PO ×2 (08:17→17:08)
--- NOTE | 2021-09-19 09:50 | PM.CONSULT ---
Providers/Reason For Consult Consulting Physician/Specialty*: Urology/Comer Reason for Consult*: Inability to pass Aldana catheter Requesting Physician: Dr. Adkins Attending Physician: Alem Garvey MD Primary Care Provider: Blaise Amato, MATEUS-Alec History of Present Illness History of Present Illness Edgardo Price is a 86 year old male admitted yesterday with complaints of altered mental status. He has other significant comorbidities including anemia, chronic anticoagulation for atrial fibrillation, type 2 diabetes mellitus, B12 deficiency, hypertension, Parkinson's disease, cognitive dysfunction, atherosclerotic coronary vascular disease, mitral valve repair remotely, and hypertension. It was discovered that the patient had fallen. He was not able to relate much information about that. Initial labs were good except he had an elevated creatinine kinase. There is no evidence of intracranial abnormality on CT scan, no obvious orthopedic injuries from the fall Admitting diagnosis included rhabdomyolysis and dehydration along with his chronic medical conditions. I saw the patient 1 time in the past and November 2020 after hospitalization for urinary tract infection. Urinary symptoms included report of decreased force of stream times several months, enlarged prostate plan on ultrasound, normal upper urinary tracts on CT scan noted. Per my questioning he reported that he at baseline voiding pretty well but his urinary symptoms increased around the time of the UTI. He was on [facility] of TAMSULOSIN/FINASTERIDE and that was recommended to be maintained. Work-up showed a good flow rate with a peak of approximately 10 and average around 3. He did have some intermittency but overall the pattern was okay. He voided 232 cc with a PVR of only 55 cc at that time. Was recommended that he continue to follow with his primary care provider Blaise Amato and she was asked to continue the medications. This consultation initiated when attempts at Aldana catheter placement were unsuccessful. Nursing staff reported that they could not manipulate the catheter beyond the urethral meatus. Patient does state that his urinary stream is somewhat diminished. Does not describe a significant amount of problems with his voiding. 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 PROCEDURE: Urethral dilation with catheter sounds Prepped usual sterile fashion. Well-lubricated 10 Faroese straight catheter was able to be manipulated through a tight urethral meatal stricture. Sequential dilation with catheter sounds from 12 Faroese to 16 Faroese was then performed. There was no more proximal restriction noted beyond the urethral meatus. A 14 Faroese coud? catheter was then manipulated into the bladder. Clear yellow urine was returned and the balloon was inflated with 10 cc. There was not a large amount of urine returned. He tolerated procedure well without complication. Recommendations: 1. I would leave the Aldana catheter in for at least 24 to 48 hours for passive dilation of the dilated urethral meatus. 2. After that the catheter can be managed at your discretion. Review of Systems Const: Denies: fever(s) or chills Eyes: Denies: eye discharge ENMT: Reports: other (Some decreased hearing chronic) Card: Denies: chest pain or palpitations Resp: Denies: productive cough or wheezing GI: Denies: abdominal pain or vomiting : Reports: other (Chronically decreased force of stream); Denies: hematuria Musc: Reports: joint pain; Denies: joint redness Skin/Breast: Denies: rash Neuro: Reports: other (Chronic Parkinson's tremor) Psych: Reports: other (Delightful personality); Denies: anxiety or depression Endo: Reports: flushing Stalin/Lymph: Denies: enlarged lymph nodes All/Imm: Denies: acute wheezing Medications/Allergies Home Medications Medication Instructions Recorded Confirmed Last Taken Type nitroglycerin 0.4 mg sublingual 0.4 mg sublingual Q5M PRN chest 10/28/20 09/19/21 Unknown Rx tablet pain #25 tabs cyanocobalamin (vitamin B-12) 1,000 mcg IM Q30D 11/18/20 09/19/21 Unknown History 1,000 mcg/mL injection solution carbidopa ER 50 mg-levodopa 200 mg 1 tab PO BID #60 tabs 04/21/21 09/19/21 Unknown Rx tablet,extended release enalapril maleate 5 mg tablet 5 mg PO BID #60 tabs 04/21/21 09/19/21 Unknown Rx ferrous sulfate 325 mg (65 mg 325 mg PO DAILY #30 tabs 04/21/21 09/19/21 Unknown Rx iron) tablet furosemide 20 mg tablet 20 mg PO DAILY #30 tabs 04/21/21 09/19/21 Unknown Rx metformin 500 mg tablet,extended 500 mg PO BID #60 tabs 04/21/21 09/19/21 Unknown Rx release 24 hr potassium chloride 10 mEq 10 meq PO DAILY #30 tabs 04/21/21 09/19/21 Unknown Rx tablet,extended release pravastatin 40 mg tablet 40 mg PO DAILY #90 tabs 04/21/21 09/19/21 Unknown Rx tamsulosin 0.4 mg capsule (Flomax) 0.4 mg PO BID #60 caps 04/21/21 09/19/21 Unknown Rx metoprolol succinate 25 mg 25 mg PO DAILY #30 tabs 08/14/21 09/19/21 Unknown Rx tablet,extended release 24 hr (Toprol XL) warfarin 2 mg tablet See Rx Instructions PO DAILY #65 08/14/21 09/19/21 Unknown Rx tabs Allergies Allergy/AdvReac Type Severity Reaction Status Date / Time aspirin Allergy ADR-Gastrointestinal Verified 08/10/21 08:53 Upset Current Medications Generic Name Dose Route Start Last Admin Trade Name Ro PRN Reason Stop Dose Admin Atorvastatin Calcium 20 mg 09/19/21 09:00 09/19/21 08:15 Atorvastatin 40 Mg Tablet PO 20 mg DAILY KASEY Administration Carbidopa/Levodopa 1 each 09/19/21 09:00 09/19/21 08:17 Carbidopa-Levodopa Er 50-200mg Tablet PO 1 each BID KASEY Administration Enalapril Maleate 5 mg 09/19/21 09:00 09/19/21 08:16 Enalapril 10 Mg Tablet PO 5 mg BID KASEY Administration Ferrous Sulfate 325 mg 09/19/21 09:00 09/19/21 08:15 Ferrous Sulfate Ec 325 Mg Tablet PO 325 mg DAILY KASEY Administration Heparin Sodium (Porcine) 5,000 unit 09/19/21 00:14 09/19/21 08:17 Heparin 5,000 Unit/Ml Inj 1 Ml SUBCUT 5,000 unit Q8H KASEY Administration Sodium Chloride 1,000 mls @ 75 mls/hr 09/19/21 00:14 09/19/21 00:58 Sodium Chloride 0.9% IV 75 mls/hr .[id number] KASEY Administration Tamsulosin HCl 0.4 mg 09/19/21 09:00 09/19/21 08:17 Tamsulosin 0.4 Mg Capsule PO 0.4 mg BID KASEY Administration PFSH Acute PFSH: Medical History Anemia Anticoagulant long-term use Atherosclerotic heart disease of [place] coronary artery without angina pectoris Atrial fibrillation Controlled type 2 diabetes mellitus with hyperglycemia, without long-term current use of insulin Dietary vitamin B12 deficiency anemia Essential (primary) hypertension Gastric reflux Iron deficiency Memory changes Mixed hyperlipidemia Parkinson's disease Urinary hesitancy Warfarin anticoagulation Surgical History H/O mitral valve repair Family History Mother , AT 92 Dementia Daughter Diabetes Mother , AT 92 No problems noted. Social History Smoking and tobacco status: never smoked Second hand smoke exposure: No Smoking risk assessment/counseling performed?: No Alcohol intake: never Desire information about alcohol rehabilitation?: No Counseling given: No Desire information about substance/drug rehabilitation?: No Counseling given: No Adopted: No Caregiver/support person: No Lives independently: Yes Household members: none Housing: House Marital status: / service: No Current occupational status: retired Current occupational exposures/hazards: No History of recent travel: No Current gender identity: Male Vitals/I&O/Wt Last Vital Signs Temp 98.2 F 09/19/21 04:00 Pulse 84 09/19/21 06:00 Resp 18 09/19/21 04:00 BP 120/63 09/19/21 04:00 Pulse Ox 98 09/19/21 04:00 O2 Del Method 09/19/21 00:26 09/18/21 09/19/21 09/19/21 22:59 06:59 14:59 Intake Total 1100 / 1100 Balance 1100 / 1100 Weight last 48 hrs Weight 140 lb Physical Exam Const: COMMON NORMALS: no acute distress, alert and well nourished GENERAL APPEARANCE: well kempt and well developed ORIENTATION/CONSCIOUSNESS: not confused HENMT: COMMON NORMALS: normocephalic and atraumatic HEAD & SCALP: normocephalic and atraumatic Eye: COMMON NORMALS: conjunctivae normal and no scleral icterus CONJUNCTIVA: Yes conjunctivae normal Neck/C-Spine: COMMON NORMALS: full ROM GENERAL: Yes normal visual inspection Lymph: LYMPHATIC: other (No groin lymphadenopathy.) Resp: COMMON NORMALS: normal respiratory effort EFFORT & INSPECTION: No labored and No Actively coughing Cardio: OTHER: Irregular rate and rhythm. GI: COMMON NORMALS: no bruits (Soft nontender no palpable masses or megaly appreciated.) : COMMON NORMALS: Yes no CVA tenderness BLADDER/KIDNEY EXAM: Yes no CVA tenderness OTHER: Circumcised phallus. Meatus is stenosed. Normal scrotum. Back/Pelvis: COMMON NORMALS: no CVA tenderness Extremity: COMMON NORMALS: no clubbing, cyanosis or edema NARRATIVE EXTREMITY EXAM: No severe peripheral edema Neuro: SENSORIUM/ORIENTATION: Yes alert OTHER: Parkinson's tremor Psych: COMMON NORMALS: mental status grossly normal APPEARANCE: Yes grossly normal and Yes well kempt ATTITUDE: Yes calm and Yes engaged Skin: COMMON NORMALS: no rashes or lesions noted and no jaundice NARRATIVE SKIN EXAM: Few minor abrasions from the fall GENERAL SKIN EXAM: no rashes or lesions noted Data : 09/19/21 03:00 09/19/21 03:00 A&P Assessment and plan (1) Meatal stenosis: Required dilation for catheter placement. See HPI Status: Acute (2) Urinary hesitancy: Chronic. Not progressive per patient's report Status: Acute (3) BPH loc w urin obs/LUTS: On TAMSULOSIN for BPH. Previously prescribed finasteride does not appear to have been continued. Status: Chronic Plan Maintain Aldana catheter for least 24 to 48 hours for passive dilation post dilation of urethral meatal stenosis. Can manage at will at that point. Consult Attestations Medical Necessity Statement: See attending Coding Level of Care Code Acute Sfdc Architect for Mary Fwd Exam Comprehensive Diagnoses Meatal stenosis Urinary hesitancy R39.11 BPH loc w urin obs/LUTS N40.1
[2021-09-19 10:38] LABS: Urine Appearance SL Hazy (CLEAR); Urine Color Yellow (Yellow)
[2021-09-19 10:39] LABS: Add Urine Microscopic? YES; Bilirubin Urine Neg (Negative); Blood Urine 3+ (Negative); Glucose Urine UA 1+ (Normal); Ketones Urine 2+ (Negative); Leukocyte Esterase Urine Negative (Negative); Nitrate Urine Negative (Negative); Protein Urine 1+ (Negative); Specific Gravity, Urine 1.025 (1.005-1.030); Urobilinogen Urine Norm (Negative); pH Urine 5 (5-7)
[2021-09-19 10:40] LABS: Bacteria Urine 1+ /hpf; Mucus Urine 1+ /hpf; RBC Urine 0-4 /hpf (0-2); Squamous Epithelial Cell Urine RARE /hpf (0-5); WBC Urine 0-4 /hpf (0-5)
[2021-09-19 10:41] LABS: Add Urine Culture? No
--- NOTE | 2021-09-19 10:53 | PM.PN ---
Subjective Subjective: This morning Dr. Comer placed a coud? catheter Low urine output Creatinine has not worsened Patient looks dehydrated Awake and alert Patient has right wrist drop Has history of A. fib Chronically anticoagulated Vitals/I&O/Wt Last Vital Signs Temp 98.2 F 09/19/21 04:00 Pulse 84 09/19/21 08:00 Resp 16 09/19/21 08:00 BP 122/66 09/19/21 08:00 Pulse Ox 98 09/19/21 04:00 O2 Del Method 09/19/21 00:26 09/18/21 09/19/21 09/19/21 22:59 06:59 14:59 Intake Total 1100 / 1100 120 / 120 Balance 1100 / 1100 120 / 120 Weight last 48 hrs Weight 63.503 kg Physical Exam Narrative: Able to answer my questions appropriately Short attention span Resting tremors Right wrist drop Weakness of bilateral lower extremities Mild edema of extremities Abdomen soft Variable S1-S2 Saturating well on room air Urinary Catheter Management: Aldana: Cath Placed During This Visit: yes Urinary Catheter Date of Insertion: 09/19/21 Urinary Catheter Time of Insertion: : Data : 09/19/21 03:00 09/19/21 03:00 A&P Assessment and plan (1) Atrial fibrillation: Status: Chronic Qualifiers: Atrial fibrillation type: paroxysmal Qualified Code(s): I48.0 - Paroxysmal atrial fibrillation (2) Essential (primary) hypertension: Status: Chronic (3) Iron deficiency: Status: Chronic (4) Parkinson's disease: Status: Chronic (5) Controlled type 2 diabetes mellitus with hyperglycemia, without long-term current use of insulin: Status: Chronic (6) Dietary vitamin B12 deficiency anemia: Status: Acute (7) Urinary hesitancy: Status: Acute (8) BPH loc w urin obs/LUTS: Status: Chronic (9) Acute dehydration: Status: Acute (10) History of coronary artery bypass graft: Status: Acute (11) Coronary artery disease: Status: Acute (12) Meatal stenosis: Status: Acute Plan Urethral meatus stenosis Coud? cath replaced with Dr. Comer No HOWARD No signs of UTI Dehydration continue IV fluid hydration Parkinson's: He is fall could be related to Parkinson's, I have noticed right-sided wrist drop, he is has significant weakness of lower extremities as well Awake and alert Able to answer my question appropriately Head CT unremarkable PT evaluation Family has already looked into JOSIE, continuous pillowcase cutter will call the family to coordinate the care and discharge, if patient stays clinically stable might be discharged in next 24 to 48 hours Patient is listed as full code, will discuss with the family Mechanical soft diet DVT prophylaxis Heparin Attestations Medical Necessity Statement*: Discharge in next 24 to 48 hours Time Spent in Patient Care: 40 Coding Level of Care Code 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
[2021-09-19 12:14] LABS: Glucose Point of Care 171 mg/dL (70-110)
[2021-09-19] MEDS: insulin lispro 100 unit/1 mL SUBCUT (12:19)
[2021-09-19] MEDS: warfarin 2 mg Tablet 4 MG PO (13:56)
[2021-09-19] MEDS: acetaminophen 325 mg Tablet 650 MG PO (14:03)
[2021-09-19 16:53] LABS: Glucose Point of Care 84 mg/dL (70-110)
[2021-09-19 21:06] LABS: Glucose Point of Care 183 mg/dL (70-110)
[2021-09-20] VITALS (9 sets, daily range): BP systolic 109–182; BP diastolic 61–101; PULSE 99–156; RESP 14–18; TEMP 36.4–36.6; O2SAT 93–98
[2021-09-20] MEDS: heparin 5,000 unit/mL INJ 1 mL 5000 UNIT SUBCUT ×2 (00:20→08:31)
[2021-09-20] MEDS: sodium chloride 0.9% 1,000 ML 75 ML IV ×2 (03:08→17:33)
[2021-09-20 06:21] LABS: INR 1.14 (0.8-1.2)
[2021-09-20 06:26] LABS: Glucose Point of Care 124 mg/dL (70-110)
[2021-09-20 06:35] LABS: Anion Gap 13.7 (5-19); Blood Urea Nitrogen 31 mg/dL (8-23); Calcium 8.5 mg/dL (8.5-10.5); Carbon Dioxide 22 mmol/L (22-29); Chloride 110 mmol/L (98-107); Glucose 119 mg/dL (65-115); Osmolality Calculated 302 mOsm/kg (285-295); Potassium 3.7 mmol/L (3.5-5.1); Sodium 142 mmol/L (136-145)
[2021-09-20] MEDS: carbidopa-levodopa ER 50-200mg Tablet 1 EACH PO ×2 (08:33→17:38)
[2021-09-20] MEDS: ferrous sulfate EC 325 mg Tablet PO (08:34)
[2021-09-20] MEDS: tamsulosin 0.4 mg Capsule PO ×2 (08:34→17:37)
[2021-09-20 10:57] LABS: Glucose Point of Care 157 mg/dL (70-110)
--- NOTE | 2021-09-20 11:53 | PM.PN ---
Subjective Subjective: Discontinue one-to-one supervision Patient is much more calm today Is not pulling on his Aldana catheter Aldana cath was placed with Dr. Comer Kidney function is normal Afebrile Patient might need rehab facility, SNF instead of [facility] To work with PT today Vitals/I&O/Wt Last Vital Signs Temp 97.8 F 09/20/21 07:32 Pulse 128 H 09/20/21 07:32 Resp 18 09/20/21 07:32 BP 182/101 09/20/21 07:32 Pulse Ox 98 09/20/21 07:32 O2 Del Method 09/19/21 15:26 09/19/21 09/20/21 09/20/21 22:59 06:59 14:59 Intake Total 270 / 1361.25 991.25 / 2352.50 240 / 240 Output Total 400 / 400 Balance 270 / 1361.25 591.25 / 1952.50 240 / 240 Weight last 48 hrs Weight 63.503 kg Physical Exam Narrative: Patient was not able to get up on his legs Also noticed right-sided wrist drop Pleasantly confused Oriented to himself S1, S2 variable Paced rhythm Abdomen soft Mild edema of lower legs Aldana catheter in place Urinary Catheter Management: Aldana: Cath Placed During This Visit: yes Reason for Continuing Indwelling Catheter: Other Urinary Catheter Date of Insertion: 09/19/21 Urinary Catheter Time of Insertion: : Data : 09/19/21 03:00 09/20/21 05:50 A&P Assessment and plan (1) Atrial fibrillation: Status: Chronic Qualifiers: Atrial fibrillation type: paroxysmal Qualified Code(s): I48.0 - Paroxysmal atrial fibrillation (2) Essential (primary) hypertension: Status: Chronic (3) Iron deficiency: Status: Chronic (4) Parkinson's disease: Status: Chronic (5) Controlled type 2 diabetes mellitus with hyperglycemia, without long-term current use of insulin: Status: Chronic (6) Urinary hesitancy: Status: Acute (7) Meatal stenosis: Status: Acute (8) Acute dehydration: Status: Acute (9) BPH loc w urin obs/LUTS: Status: Chronic (10) Anticoagulant long-term use: Status: Chronic Plan Severe deconditioning related dehydration with underlying Parkinson's Patient might need SNF or rehab instead of [facility] Will touch base with his family I have tried to call his son 1 more time today, was not able to get in touch with him, I did speak with his daughter yesterday His CT head is unremarkable, my concern is related to recent CVA event because of right wrist drop and leg weakness No signs of fracture Dehydration: Continue IV fluids Poor p.o. intake Urethral meatus stenosis Aldana cath was placed with Dr. Comer No worsening of kidney function Parkinson's: Continue Parkinson's medication front desk manager is aware Appreciate PT recommendations Full code DVT prophylaxis Heparin Mechanical soft Discontinue one-to-one supervision he required supervision as he was pulling on his Aldana catheter Attestations Medical Necessity Statement*: Discharge to SNF Time Spent in Patient Care: 30 Coding Level of Care Code Acute Weight Loss Centre Manager for Chg Fwd Diagnoses Atrial fibrillation I48.0 Atrial fibrillation type: paroxysmal Essential (primary) hypertension I10 Iron deficiency E61.1 Parkinson's disease G20 Controlled type 2 diabetes mellitus with hyperglycemia, without long-term current use of insulin E11.65 Urinary hesitancy R39.11 Meatal stenosis Acute dehydration E86.0 BPH loc w urin obs/LUTS N40.1 Anticoagulant long-term use Z79.01
[2021-09-20] MEDS: insulin lispro 100 unit/1 mL SUBCUT (13:09)
[2021-09-20] MEDS: warfarin 2 mg Tablet 4 MG PO (13:10)
[2021-09-20 17:30] LABS: Glucose Point of Care 123 mg/dL (70-110)
[2021-09-20] MEDS: ziprasidone 20 mg/mL SDV 10 MG IM (17:36)
[2021-09-20 21:16] LABS: Glucose Point of Care 151 mg/dL (70-110)
[2021-09-21 04:00] VITALS: BP 169/83; PULSE 131; RESP 18; TEMP 36.5; O2SAT 96
[2021-09-21 06:00] VITALS: PULSE 131
[2021-09-21 06:35] LABS: INR 1.15 (0.8-1.2)
[2021-09-21] MEDS: sodium chloride 0.9% 1,000 ML 75 ML IV (06:36)
[2021-09-21 07:14] LABS: Glucose Point of Care 149 mg/dL (70-110)
--- NOTE | 2021-09-21 07:16 | PC.NURSE ---
Patient is resting in bed with even and unlabored breathing. Patient is in afib with RVR rate of 130's blood pressure 160/91 spo2 93% on room air . Physician notified.
[2021-09-21 07:19] VITALS: BP 160/91; PULSE 130; RESP 20; TEMP 36.4; O2SAT 93
[2021-09-21] MEDS: ferrous sulfate EC 325 mg Tablet PO (07:56)
[2021-09-21] MEDS: metoprolol succinate ER (24 HR) 50 mg Tablet PO (07:56)
[2021-09-21] MEDS: tamsulosin 0.4 mg Capsule PO (07:57)
[2021-09-21] MEDS: carbidopa-levodopa ER 50-200mg Tablet 1 EACH PO ×2 (07:57→14:00)
--- NOTE | 2021-09-21 08:28 | PC.NURSE ---
Physician orders Toradol 15mg IVP ONCE for jaw pain
[2021-09-21 08:50] VITALS: BP 146/78; PULSE 120; RESP 20; O2SAT 93
[2021-09-21] MEDS: ketorolac 30 mg/mL INJ 15 MG IVP (08:54)
--- NOTE | 2021-09-21 09:32 | PM.PN ---
Subjective Subjective: This morning patient was complaining of pain behind his right ear, I did review his CT scan there is no sign of mastitis I gave him a dose of Toradol He has been afebrile no signs of meningitis or encephalitis He is answer my question appropriately Daughter was at the bedside She is in agreement that he would not stay still for MRI Persistent wrist drop Patient is complaining of left leg pain I will do an x-ray Vitals/I&O/Wt Last Vital Signs Temp 97.6 F 09/21/21 07:19 Pulse 120 H 09/21/21 08:50 Resp 20 H 09/21/21 08:50 BP 146/78 09/21/21 08:50 Pulse Ox 93 09/21/21 08:50 O2 Del Method 09/21/21 07:19 09/20/21 09/21/21 09/21/21 22:59 06:59 14:59 Intake Total 1000 / 1480 978.75 / 2458.75 Output Total 1150 / 1150 0 / 1150 Balance -150 / 330 978.75 / 1308.75 Physical Exam Narrative: Patient is laying supine Resting tremors Complaining of pain in left leg, tender to touch Is also complaining of pain around his right mastoid area however no active erythema, no significant tenderness on palpation He is awake appropriately answer my questions No signs of meningitis Daughter is at the bedside Currently on room air A. fib RVR Looks dehydrated Urinary Catheter Management: Aldana: Cath Placed During This Visit: yes Reason for Continuing Indwelling Catheter: Other Urinary Catheter Date of Insertion: 09/19/21 Urinary Catheter Time of Insertion: 10:22 Data : 09/19/21 03:00 09/20/21 05:50 A&P Assessment and plan (1) Atrial fibrillation: Status: Chronic Qualifiers: Atrial fibrillation type: paroxysmal Qualified Code(s): I48.0 - Paroxysmal atrial fibrillation (2) Essential (primary) hypertension: Status: Chronic (3) Iron deficiency: Status: Chronic (4) Parkinson's disease: Status: Chronic (5) Dietary vitamin B12 deficiency anemia: Status: Acute (6) BPH loc w urin obs/LUTS: Status: Chronic (7) Anticoagulant long-term use: Status: Chronic (8) Meatal stenosis: Status: Acute Plan Right wrist drop, fall at home Deconditioning A. fib RVR Pain in left ankle, pain behind his right mastoid area Is going to be very difficult to obtain MRI because he cannot lay still I have increased his metoprolol dose for his A. fib RVR Check magnesium level Family in agreement for SNF placement instead of [facility] Currently is on Coumadin INR 1.1 Persistent wrist drop most likely secondary to nerve damage instead of a stroke On and off phenomenon for Parkinson's Continue mechanical soft cardiac diet I will increase his Parkinson's medications to 3 times a day Aldana catheter placed by Dr. Comer I would not remove Aldana catheter for now, Attestations Medical Necessity Statement*: Awaiting placement Time Spent in Patient Care: 30 Coding Level of Care Code Acute Party Plan Sales Unit Advisor for g Fwd Diagnoses Atrial fibrillation I48.0 Atrial fibrillation type: paroxysmal Essential (primary) hypertension I10 Iron deficiency E61.1 Parkinson's disease G20 Dietary vitamin B12 deficiency anemia D51.8 BPH loc w urin obs/LUTS N40.1 Anticoagulant long-term use Z79.01 Meatal stenosis
--- NOTE | 2021-09-21 09:33 | XR_ITS ---
WS: [id number] XR ankle LT 2V 31622 REASON FOR EXAM: Pain, after fall FINDINGS: Soft tissue swelling around the left ankle joint. The ankle mortise is intact and relatively well-preserved. No fracture or other focal bone abnormality. Arterial vascular calcifications in the foot typical of diabetes. XR/XR ankle LT 2V [id number] IMPRESSION: Soft tissue swelling with no definite bone or joint abnormality.
--- NOTE | 2021-09-21 09:49 | PC.SOCIAL ---
IMM Update pg 2 of IMM update and reviewed w/ patients daughters who are @ bedside. Copy initialed, dated and placed in chart.
[2021-09-21 10:37] LABS: Blood Urea Nitrogen 23 mg/dL (8-23); Calcium 8.4 mg/dL (8.5-10.5); Carbon Dioxide 19 mmol/L (22-29); Chloride 107 mmol/L (98-107); Glucose 147 mg/dL (65-115); Magnesium 1.7 mg/dL (1.7-2.3); Osmolality Calculated 298 mOsm/kg (285-295); Sodium 141 mmol/L (136-145)
[2021-09-21 10:53] LABS: Vitamin B12 298 pg/mL (232-1245)
--- NOTE | 2021-09-21 11:31 | P.DS_ITS ---
Discharge Providers Date of Admission: 09/18/21 21:50 Date of Discharge: September 21, 2021 Attending Provider at Admission: Alem Garvey MD Attending Provider at Discharge: Nimesh Adkins MD Primary Care Provider: YAN Joiner Diagnoses at Discharge Discharge Diagnosis (1) Atrial fibrillation: Status: Chronic Qualifiers: Atrial fibrillation type: paroxysmal Qualified Code(s): I48.0 - Paroxysmal atrial fibrillation (2) Essential (primary) hypertension: Status: Chronic (3) Iron deficiency: Status: Chronic (4) Parkinson's disease: Status: Chronic (5) Dietary vitamin B12 deficiency anemia: Status: Acute (6) BPH loc w urin obs/LUTS: Status: Chronic (7) Anticoagulant long-term use: Status: Chronic (8) Meatal stenosis: Status: Acute Reason for Visit Reason for Visit: [facility] Hospital Course Hospital Course 86-year male who presented to the hospital after he was found on the floor at home, her family was in the midst of placing him to an [facility]. During his hospitalization he was treated for A. fib RVR, his Parkinson's medications frequency was increased, he has been having on and off , he has underlying dementia, CT head unremarkable. No signs of fracture. Patient did not participate with PT, however verbally redirectable. Patient has been complaining of left ankle pain and pain behind his right ear, there are no signs of mastoiditis on his head CT, left ankle x-ray was done which did not show any acute fractures. He has multiple bruises all over his body. I do believe he is suffering from on/off phenomenon of Parkinson's. His vitamin B12 is around 300. He has been getting vitamin B12 outpatient. He does have a right wrist drop, MRI head was not done because he would not stay still. Family is in agreement for medical management for now. His GROUP HOME plan has been changed to placement to SNF. He has preserve ejection fraction with diastolic dysfunction. For his A. fib RVR I have increased his metoprolol to 100 mg daily. Please note it was difficult to place Aldana catheter, Dr. Comer was consulted who placed his Aldana catheter, he has urethral meatus stenosis, I will discharge him on Aldana for now, he is at risk of retention, patient is at risk of falls, his anticoagulation indication should be read discussed with the family Physical Exam Narrative: Patient has right wrist drop Complaining of pain behind his right ear however no erythema or signs of infection Pain in his extremities however no signs of fracture No vascular compromise Verbally redirectable Able to eat Oriented to himself Currently on room air Variable S1-S2 Urinary Catheter Management: Aldana: Cath Placed During This Visit: yes Reason for Continuing Indwelling Catheter: Other Urinary Catheter Date of Insertion: 09/19/21 Urinary Catheter Time of Insertion: 10:22 Discharge Data Studies Completed and Pending Completed Studies During Hospitalization Category Date Time Status CT head wo con* [id number] Stat Cat Scan 09/18/21 20:34 Completed XR ankle LT 2V [id number] Routine Exams 09/21/21 09:33 Completed XR chest 1V portable [id number] Stat Exams 09/18/21 20:20 Completed XR forearm RT 2V [id number] Stat Exams 09/18/21 20:37 Completed Pending at discharge Category Date Time Status COVID [SARS Covid-2 Antigen] Routine Lab 09/21/21 11:06 Uncollected Prothrombin Time INR AM LABS Lab 09/22/21 04:00 Ordered Radiology Impressions Chest X-Ray 09/18/21 20:20 IMPRESSION: No acute focal pulmonary opacities are detected. Head CT 09/18/21 20:34 IMPRESSION: No acute intracranial abnormality. Forearm X-Ray 09/18/21 20:37 IMPRESSION: No acute osseous pathology. Ankle X-Ray 09/21/21 09:33 IMPRESSION: Soft tissue swelling with no definite bone or joint abnormality. Laboratory Results WBC 9.7 10^3/uL (4.0-10.0) 09/19/21 03:00 RBC 3.59 10^6/uL (4.1-5.3) L 09/19/21 03:00 Hgb 11.0 g/dL (11.7-16.6) L 09/19/21 03:00 Hct 35.1 % (42.0-52.0) L 09/19/21 03:00 MCV 97.8 fl (80-94) H 09/19/21 03:00 MCH 30.6 pg (28.0-34.0) 09/19/21 03:00 MCHC 31.3 g/dL (30.0-36.0) 09/19/21 03:00 RDW 12.8 % (12.1-15.1) 09/19/21 03:00 Plt Count 162 10^3/cmm (130-400) 09/19/21 03:00 MPV 9.9 fL (7.4-10.4) 09/19/21 03:00 Neut % (Auto) 80.8 % 09/19/21 03:00 Lymph % (Auto) 11.4 % 09/19/21 03:00 [place]ount % (Auto) 7.1 % 09/19/21 03:00 Eos % (Auto) 0.0 % 09/19/21 03:00 Baso % (Auto) 0.3 % 09/19/21 03:00 Neut # (Auto) 7.80 10^3/uL (1.8-7.7) H 09/19/21 03:00 Lymph # (Auto) 1.1 10^3/uL (0.8-4.8) 09/19/21 03:00 [place] # (Auto) 0.7 10^3/uL (0.2-0.9) 09/19/21 03:00 Eos # (Auto) 0.0 10^3/uL (0.0-0.8) 09/19/21 03:00 Baso # (Auto) 0.0 10^3/uL (0.0-0.1) 09/19/21 03:00 Nucleated RBC % (auto) 0 % 09/19/21 03:00 Nucleated RBCs # 0.0 /100WBC 09/19/21 03:00 PT 15.10 SECONDS (12.1-14.9) H 09/21/21 06:20 INR 1.15 (0.8-1.2) 09/21/21 06:20 Sodium 141 mmol/L (136-145) 09/21/21 06:20 Potassium 4.0 mmol/L (3.5-5.1) 09/21/21 06:20 Chloride 107 mmol/L (98-107) 09/21/21 06:20 Carbon Dioxide 19 mmol/L (22-29) L 09/21/21 06:20 Anion Gap 19.0 (5-19) 09/21/21 06:20 BUN 23 mg/dL (8-23) 09/21/21 06:20 Creatinine 0.8 mg/dL (0.7-1.2) 09/21/21 06:20 GFR Calculation Not Reportable 09/21/21 06:20 Glucose 147 mg/dL (65-115) H 09/21/21 06:20 POC Glucose 149 mg/dL (70-110) H 09/21/21 07:08 Estimat Average Glucose 160 09/18/21 20:37 Hemoglobin A1c 7.2 % (4.0-6.0) H 09/18/21 20:37 Calculated Osmolality 298 mOsm/kg (285-295) H 09/21/21 06:20 Calcium 8.4 mg/dL (8.5-10.5) L 09/21/21 06:20 Phosphorus 3.2 mg/dL (2.5-4.5) 09/19/21 03:00 Magnesium 1.7 mg/dL (1.7-2.3) 09/21/21 06:20 Total Bilirubin 1.2 mg/dL (0.15-1.2) 09/19/21 03:00 AST 50 U/L (0-40) H 09/19/21 03:00 ALT 14 U/L (0-41) 09/19/21 03:00 Alkaline Phosphatase 80 IU/L (40-130) 09/19/21 03:00 Creatine Kinase 1527 U/L (39-308) H* 09/18/21 20:37 Troponin T Baseline 42 ng/L (0-15) H 09/18/21 20:37 Troponin T 120 Minute 45.66 ng/L (0-15) H 09/18/21 23:50 Delta Troponin T 3.66 ABS# (0-10) 09/18/21 23:50 Troponin T Hi Sens 6Hr 46.75 ng/L (0-15) H 09/19/21 03:00 Troponin T Hi Sens 6Hr Delta 4.75 ng/L (0-12) 09/19/21 03:00 Total Protein 6.5 g/dL (6.6-8.7) L 09/19/21 03:00 Albumin 3.6 g/dL (3.5-5.2) 09/19/21 03:00 Globulin 2.9 g/dL (1.3-4.6) 09/19/21 03:00 Triglycerides 55 mg/dL (0-150) 09/18/21 23:50 Cholesterol 197 mg/dL (0-200) 09/18/21 23:50 LDL Cholesterol, Calc 111 mg/dL (50-129) 09/18/21 23:50 HDL Cholesterol 75 mg/dL (60-100) 09/18/21 23:50 LDL/HDL Ratio 1.48 RATIO (0.00-3.22) 09/18/21 23:50 Cholesterol/HDL Ratio 2.63 mg/dL (1.0-5.00) 09/18/21 23:50 Vitamin B12 298 pg/mL (232-1245) 09/21/21 06:20 Procalcitonin 0.57 ng/mL (0-0.5) H 09/18/21 23:50 TSH 2.18 uIU/mL (0.27-4.20) 09/18/21 23:50 Urine Color Yellow (Yellow) 09/19/21 10:18 Urine Appearance Sl hazy (CLEAR) 09/19/21 10:18 Urine pH 5 (5-7) 09/19/21 10:18 Ur Specific [place] 1.025 (1.005-1.030) 09/19/21 10:18 Urine Protein 1+ (Negative) H 09/19/21 10:18 Urine Glucose (UA) 1+ (Normal) H 09/19/21 10:18 Urine Ketones 2+ (Negative) H 09/19/21 10:18 Urine Blood 3+ (Negative) H 09/19/21 10:18 Urine Nitrate Negative (Negative) 09/19/21 10:18 Urine Bilirubin Neg (Negative) 09/19/21 10:18 Urine Urobilinogen Norm mg/dL (Negative) 09/19/21 10:18 Ur Leukocyte Esterase Negative (Negative) 09/19/21 10:18 Urine RBC 0-4 /hpf (0-2) H 09/19/21 10:18 Urine WBC 0-4 /hpf (0-5) H 09/19/21 10:18 Ur Squamous Epith Cells Rare /hpf (0-5) 09/19/21 10:18 Amorphous Sediment Not Reportable 09/19/21 10:18 Urine Bacteria 1+ /hpf (NONE) H 09/19/21 10:18 Urine Mucus 1+ /hpf 09/19/21 10:18 Vitals Last Vital Signs Temp 97.6 F 09/21/21 07:19 Pulse 120 H 09/21/21 08:50 Resp 20 H 09/21/21 08:50 BP 146/78 09/21/21 08:50 Pulse Ox 93 09/21/21 08:50 O2 Del Method 09/21/21 07:19 Discharge Plan Discharge Patient Disposition: Xfer SNF Condition: Stable Prescriptions: New metoprolol tartrate 100 mg tablet 100 mg PO BID Qty: 60 0RF finasteride 5 mg tablet 5 mg PO DAILY Qty: 30 0RF albuterol sulfate 90 mcg/actuation HFA aerosol inhaler 2 inh inhalation Q8H PRN (Reason: shortness of breath or wheezing) Qty: 8.5 0RF Continued ferrous sulfate 325 mg (65 mg iron) tablet 325 mg PO DAILY Qty: 30 2RF Flomax 0.4 mg capsule 0.4 mg PO BID Qty: 60 2RF enalapril maleate 5 mg tablet 5 mg PO BID Qty: 60 2RF nitroglycerin 0.4 mg tablet, sublingual 0.4 mg SUBLINGUAL Q5M PRN (Reason: chest pain) Qty: 25 0RF Rx Instructions: do not exceed 3 doses per episode warfarin 2 mg tablet See Rx Instructions PO DAILY Qty: 65 0RF Rx Instructions: 4mg 6 days per week daily, 5mg 1 day per week daily; cyanocobalamin (vitamin B-12) 1,000 mcg/mL solution 1,000 mcg IM Q30D Changed furosemide 20 mg tablet 20 mg PO DAILY PRN (Reason: Shortness of breath, weight gain) Qty: 30 2RF carbidopa-levodopa 50-200 mg tablet extended release 1 tab PO TID Qty: 60 2RF Discontinued metformin 500 mg tablet extended release 24 hr 500 mg PO BID Qty: 60 2RF potassium chloride 10 mEq tablet extended release 10 meq PO DAILY Qty: 30 2RF pravastatin 40 mg tablet 40 mg PO DAILY Qty: 90 2RF metoprolol succinate [Toprol XL] 25 mg tablet extended release 24 hr 25 mg PO DAILY Qty: 30 0RF Discharge Orders: Discharge Order (Routine); Ordered 09/21/21 Ordered By: Nimesh Adkins Referrals: [facility] [Outside] Blaise Amato, CHEMISTRY SPECIALIST-C [Primary Care Provider] - Discharge Attestations Time Spent in Discharge Care*: less than 30 min Status at Discharge: Cognitive status at discharge: mildly impaired cognition , Behavioral status at discharge: cooperative , Quality Metrics Clinical Quality Measures [ No reported AMI, CVA or VTE this stay] Coding Level of Care Code Acute Chg FW DC note Diagnoses Atrial fibrillation I48.0 Atrial fibrillation type: paroxysmal Essential (primary) hypertension I10 Iron deficiency E61.1 Parkinson's disease G20 Dietary vitamin B12 deficiency anemia D51.8 BPH loc w urin obs/LUTS N40.1 Anticoagulant long-term use Z79.01 Meatal stenosis
[2021-09-21 11:44] VITALS: BP 136/72; PULSE 109; RESP 12; O2SAT 94
[2021-09-21] MEDS: insulin lispro 100 unit/1 mL SUBCUT (12:14)
[2021-09-21 12:20] LABS: SARS Covid-2 Antigen Negative (Negative)
[2021-09-21 12:21] LABS: Glucose Point of Care 170 mg/dL (70-110)
[2021-09-21] MEDS: warfarin 2 mg Tablet 4 MG PO (14:00)
[2021-09-21] MEDS: metoprolol tartrate 50 mg Tablet 100 MG PO (14:35)
--- NOTE | 2021-09-21 14:36 | PC.NURSE ---
Physician notified of patients heart rate in the 130's prior to discharge. Received orders to give Metoprolol tartrate 100mg PO ONCE
[2021-09-21] MEDS: warfarin 2 mg Tablet PO (15:07)
--- NOTE | 2021-09-21 15:09 | PC.NURSE ---
Discharge Note Patient discharged to [facility] via wheelchair accompanied by staff and daughter. Discharge instructions reviewed with patient and/or passenger service representative. Mobile pharmacy medications and/or prescriptions provided. Belongings/home medications returned.
== END 2021-09-21 15:09 | disposition skilled nursing facility (03) | DRG 309 ==
LOC: ER 22:34 → MEDSURG 22:42
PROVIDERS: Admitting Provider Internal Medicine; Emergency Provider Emergency Medicine; PCP Nurse Practitioner; Visit Provider Internal Medicine
DX: I48.0 Paroxysmal atrial fibrillation (principal); M62.82 Rhabdomyolysis; N13.8 Other obstructive and reflux uropathy; W19.XXXA Unspecified fall, initial encounter; D50.9 Iron deficiency anemia, unspecified; F17.210 Nicotine dependence, cigarettes, uncomplicated; E11.65 Type 2 diabetes mellitus with hyperglycemia; D51.9 Vitamin B12 deficiency anemia, unspecified; I10 Essential (primary) hypertension; G20 Parkinson's disease; F02.80 Dementia in other diseases classified elsewhere, unspecified severity, without behavioral disturbance, psychotic disturbance, mood disturbance, and anxiety; I25.10 Atherosclerotic heart disease of native coronary artery without angina pectoris; Z95.1 Presence of aortocoronary bypass graft; K21.9 Gastro-esophageal reflux disease without esophagitis; E78.2 Mixed hyperlipidemia; E86.0 Dehydration; Z87.440 Personal history of urinary (tract) infections; H92.01 Otalgia, right ear; M21.331 Wrist drop, right wrist; M25.572 Pain in left ankle and joints of left foot; N35.911 Unspecified urethral stricture, male, meatal; N40.1 Benign prostatic hyperplasia with lower urinary tract symptoms; R39.11 Hesitancy of micturition; R39.12 Poor urinary stream
CPT/HCPCS: 36415; 36416; 51702; 51798; 70450; 71045; 73090; 73600; 80048; 80053; 80061; 81001; 82550; 82607; 82962; 83036; 83735; 84100; 84145; 84443; 84484; 85025; 85610; 87426; 92523; 92610; 93005; 96361; 96372; 96374; 97110; 97161; 97167; 97530; 99285; J1644; J1815; J1885; J3486; J7030